=== PATIENT | female | born 1935 | race Caucasian/White ===

== ENCOUNTER 2016-09-12 13:06 | Outpatient (RCR) | payer MEDICARE ==
[~2016-09-12 13:06] MED LIST: ACHD5005 PO; ASP325T PO; ASPI-983 PO; BISO1TAB39 PO; CALC-754 PO; CHOL200035 PO; CLOP75TA PO; DCS100C PO; DOCU100T7 PO; FAMO20TA5 PO; FAMO40TA6 PO; FENO134C PO; FURO40TA4 PO; HYDR-3454 PO; IRON45TA2 PO; ISM30TCR PO; Iron; KCL10CCR PO; METO-352 PO; MTP25TSR PO; MULT1CAP27 PO; PNT40TEC PO; POTA10TA6 PO; POTA20TA15 PO; TRAM50TA2 PO; TRIA1TAB3 PO
[2016-09-12 13:35] LABS: BASOPHILS % (AUTO) 0 % (0-10); EOSINOPHILS # (AUTO) 0.1 10^3/uL (0.0-0.3); EOSINOPHILS % (AUTO) 0 % (0-10); LYMPHOCYTES # (AUTO) 15.5 X 10^3 (1.0-4.0); LYMPHOCYTES % (AUTO) 86 % (12-44); MEAN CORPUSCULAR HEMOGLOBIN 36 PG (25-34); MEAN CORPUSCULAR HGB CONC 32 G/DL (32-36); MEAN CORPUSCULAR VOLUME 112 FL (80-99); MEAN PLATELET VOLUME 11.4 FL (7.4-10.4); MONOCYTES # (AUTO) 0.3 X 10^3 (0.0-1.0); MONOCYTES % (AUTO) 1 % (0-12); NEUTROPHILS # (AUTO) 2.1 X 10^3 (1.8-7.8); NEUTROPHILS % (AUTO) 12 % (42-75); PLATELET COUNT 136 10^3/uL (130-400); RED BLOOD COUNT 3.35 10^6/uL (4.35-5.85); RED CELL DISTRIBUTION WIDTH 14.7 % (10.0-14.5)
[2016-09-12 14:14] LABS: ALANINE AMINOTRANSFERASE 31 U/L (0-55); ANION GAP 6 MMOL/L (5-14); ASPARTATE AMINO TRANSFERASE 27 U/L (5-34); BILIRUBIN,TOTAL 0.9 MG/DL (0.1-1.0); BLOOD UREA NITROGEN 20 MG/DL (7-18); BUN/CREATININE RATIO 24; CALCIUM 9.1 MG/DL (8.5-10.1); CARBON DIOXIDE 33 MMOL/L (21-32); CHLORIDE 104 MMOL/L (98-107); CREATININE SERUM 0.84 MG/DL (0.60-1.30); GFR ESTIMATED > 60; GLUCOSE 86 MG/DL (70-105); POTASSIUM 4.3 MMOL/L (3.6-5.0); SODIUM 143 MMOL/L (135-145)
[2016-09-12 14:35] LABS: THYROID STIMULATING HORMONE 1.49 UIU/ML (0.35-4.94)
[2016-09-12 16:06] LABS: %SAT TOTAL IRON BINDING CAPIC 51 % (15-50); TIBC 287 ug/dL (280-380)
[2016-09-13 07:53] LABS: FERRITIN 326 ng/mL (15-150); UIBC 142 ug/dL (55-450)
[2016-10-10] MEDS ORDERED: METO-274 PO (09:13)
[2016-11-28] MEDS ORDERED: ASPI-983 PO (07:54)
[2016-11-28] MEDS ORDERED: D50KC PO (07:54)
[2016-11-28] MEDS ORDERED: PANT40TA2 PO (07:54)
[2016-11-28] MEDS ORDERED: ACET-77 PO (07:54)
[2016-11-28] MEDS ORDERED: METO-274 PO (07:54)
[2016-11-28] MEDS ORDERED: TRAM50TA2 PO (07:54)
== END 2016-12-11 | disposition home or self-care (01) ==
LOC: ONC 13:06
PROVIDERS: ATTEND Internal Medicine Hematology & Oncology
DX: C91.10 Chronic lymphocytic leukemia of B-cell type not having achieved remission (principal); D50.9 Iron deficiency anemia, unspecified; I25.10 Atherosclerotic heart disease of native coronary artery without angina pectoris; K21.9 Gastro-esophageal reflux disease without esophagitis; Z79.899 Other long term (current) drug therapy; Z95.1 Presence of aortocoronary bypass graft
CPT/HCPCS: 36415; 80053; 82728; 83540; 84443; 85025; 99213

== ENCOUNTER 2016-11-28 07:00 | Day surgery (SDC) | payer MEDICARE ==
[2016-11-28] VITALS (11 sets, daily range): BP systolic 110–147; BP diastolic 48–74
[~2016-11-28] VITALS: Ht 162.6 cm; Wt 104.3 kg
[~2016-11-28 07:00] MED LIST changes: +METO-274 PO
[2016-11-28] MEDS ORDERED: LIDOCAINE 1% INJ 20 ML (XYLOCAINE) VIAL ONE (07:02)
[2016-11-28] MEDS ORDERED: NS IV 1000 ML 1,000 ML ONE (07:02)
[2016-11-28] MEDS ORDERED: HEParin (CATH LAB) 2,000 ML IV ONE (07:02)
[2016-11-28 07:37] LABS: BILIRUBIN,URINE NEGATIVE (NEGATIVE); KETONES,URINE NEGATIVE (NEGATIVE); LEUKOCYTE ESTERASE ,URINE 3+ (NEGATIVE); NITRITE,URINE NEGATIVE (NEGATIVE); PH,URINE 6 (5-9); PROTEIN,URINE 2+ (NEGATIVE); UROBILINOGEN,URINE NORMAL (NORMAL)
[2016-11-28 07:37] LABS: MEAN PLATELET VOLUME 11.8 FL (7.4-10.4); RED BLOOD COUNT 3.47 10^6/uL (4.35-5.85); RED CELL DISTRIBUTION WIDTH 14.3 % (10.0-14.5); WHITE BLOOD COUNT 19.8 10^3/uL (4.3-11.0)
[2016-11-28] MEDS ORDERED: NS IV 1000 ML 1,000 ML IV SCH ×2 (07:45→08:53)
[2016-11-28 07:47] LABS: WBC,URINE 50-100 /HPF
[2016-11-28 07:52] LABS: PROTHROMBIN TIME PATIENT 12.5 SEC (12.2-14.7)
[2016-11-28] MEDS ORDERED: PANT40TA2 PO (07:54)
[2016-11-28] MEDS ORDERED: D50KC PO (07:54)
[2016-11-28] MEDS ORDERED: METO-274 PO (07:54)
[2016-11-28] MEDS ORDERED: TRAM50TA2 PO (07:54)
[2016-11-28] MEDS ORDERED: ASPI-983 PO (07:54)
[2016-11-28] MEDS ORDERED: ACET-77 PO (07:54)
[2016-11-28 08:02] LABS: ALBUMIN 4.3 G/DL (3.2-4.5); POTASSIUM 4.3 MMOL/L (3.6-5.0); TOTAL PROTEIN 6.3 G/DL (6.4-8.2)
[2016-11-28] MEDS ORDERED: fentaNYL INJECTION 100 MCG/2 ML AMP ONE (08:04)
[2016-11-28] MEDS ORDERED: MIDAZOLAM 5 MG/5 ML (VERSED) VIAL ONE (08:04)
--- NOTE | 2016-11-28 08:16 | Diagnostic Imaging Report ---
Portable upright radiograph of the chest. INDICATION: Periodic catheter evaluation. FINDINGS: The lungs are clear. The heart size is at the upper limits of normal. No effusion or pneumothorax. The mediastinum and eduar appear unremarkable. Sternotomy wires are seen. IMPRESSION: No acute process. Dictated by: Dictated on workstation # [id number]
--- NOTE | 2016-11-28 08:38 | Cardiac Procedure Note-CS/ASA ---
Pre-Procedure Note Pre-Op Procedure Note H&P Reviewed The H&P was reviewed, patient examined and no changes noted. Date H&P Reviewed: Nov 28, 2016 Time H&P Reviewed: 08:38 Conscious Sedation Pre-Proced Time Reviewed: 08:38 ASA Class: 3 Airway Mallampati Classification: ([place] appropriate class) I. II. III, IV Lungs Heart ASA score ASA 1: a normal healthy patient ASA 2: a patient with a mild systemic disease (mid diabetes, controlled hypertension, obesity x ASA 3: a patient with a severe systemic disease that limits activity (angina , COPD, prior Myocardial infarction) ASA 4: a patient with an incapacitating disease that is a constant threat to life (CHF, renal failure) ASA 5: a moribund patient not expected to survive 24 hrs. (ruptured aneurysm) ASA 6: a declared brain patient whose organs are being harvested. For emergent operations, add the letter E after the classification Grade 3 Sedation Plan: Analgesia, Amnesia, Plan communicated to team members, Discussed options with patient/fam, Discussed risks with patient/fam Note The patient is an appropriate candidate to undergo the planned procedure, sedation, and anesthesia. The patient immediately re-assessed prior to indication. ELISABETH ARAYA MD Nov 28, 2016 08:38
--- NOTE | 2016-11-28 08:55 | Discharge Inst-Post CATH ---
Discharge Inst-CATH Post Cardiac Cath D/C Inst Follow Up/Plan Appointment with Dr Pappas's office in 2- 4 weeks CARDIAC CATH DISCHARGE INSTRUCTIONS *Hold Metformin for 48 hours post heart cath. ACTIVITY * Go Home directly and rest. * Limit activity of the leg (or wrist if it was used) for 7 days including aerobics, swimming, jogging, bicycling, etc. * Restrict stair-climbing for 7 days if possible, if not, climb up with your non -cath leg, then bring together on the same step. * Avoid lifting, pushing, pulling or excessive movement of the affected extremity for 7 days. * Customary sexual activity may be resumed after 2 days-use caution not to use a position that strains or causes pain to the affected extremity. * No driving for 24 hours. * NO SMOKING. * Avoid straining for bowel movements for 7 days. * Gentle walking on level ground is allowed. * Returning to work will depend on the type of procedure and the results. Your doctor will discuss this with you. CALL YOUR DOCTOR FOR ANY OF THE FOLLOWING: *If bleeding from the puncture site occurs- Apply gentle pressure to site with clean cloth and call your doctor or EMS. * If a knot or lump forms under the skin, increases in size, or causes pain. * If bruising appears to be worsening or moving further down your leg instead of disappearing. * Temperature above 101 F. CARE OF YOUR GROIN INCISION; * Bruising or purple discoloration of the skin near the puncture site is common. * You may shower only, no bathtub bathing for 5 days. Be careful to avoid slipping as your leg may feel stiff. * If a closure device was used on your femoral artery, please see the attached guide regarding care of the device and your leg. * REMOVE the dressing from your groin the next day after your procedure in the shower. CARE OF YOUR WRIST INCISION; * Bruising or purple discoloration of the skin near the puncture site is common. * You may shower. * DO NOT submerge wrist. * Remove dressing in 24 hours. ELISABETH PAPPAS MD Nov 28, 2016 08:55
[2016-11-28] MEDS ORDERED: PATIENT MAY USE OWN MEDS, ALL PO SCH (09:00)
--- NOTE | 2016-11-28 12:43 | DISCHARGE SUMMARY ---
PROCEDURE PHYSICIAN: ELISABETH ARAYA DATE OF PROCEDURE: 11/28/2016 REFERRING PHYSICIAN: Dr. Conway BRIEF HISTORY: Mrs. Inman is an 80-year-old lady with history of coronary artery disease, aortic valve stenosis, hypertension. The patient had an abnormal stress test with large ischemia involving the anterior wall. She was scheduled for left heart catheterization, possible PTCA. PROCEDURE NOTE: After explaining the procedure to the patient, all pros and cons were explained. All questions were explained. The patient signed consent, then she was placed on the cardiac catheterization laboratory. The right groin was prepped in a sterile fashion. Local anesthesia applied to right groin. 6-[place] sheath was placed in the right femoral artery. A combination of right and left Rajwinder catheter were used to access the right and left coronary system. Multiple views were obtained. Rajwinder right catheter was used to access the vein graft. Vein graft angiogram was done. Then an IM catheter was used to evaluate the REYES. REYES angiogram was done. Pigtail catheter advanced through the stenotic aortic valve with difficulties. No left ventriculogram was done. Pressure was measured. Pullback LV to aorta was done. At the end of the procedure, sheath was left in place to be removed manually with manual pressure. FINDINGS: HEMODYNAMICS: LV pressure: 150/5, end-diastolic pressure of 5, aortic pressure 129/62, mean of 39, 21 mmHg gradient across the aortic valve with peak to peak pressure. ANATOMY: 1. Left main coronary artery is bifurcating to left anterior descending and left circumflex artery with no obstructive disease. 2. Left anterior descending artery is moderate in size, known to have Xience 2.25 x 18 mm stent that is patent. Small vessel disease distally. The REYES to the LAD was noted to be atretic but patent with sluggish flow. 3. Left circumflex artery: Left circumflex artery is moderate in size artery with mild disease, nonobstructive disease. 4. Right coronary artery: The right coronary artery is subtotally occluded at the midportion. The vein graft to the right coronary artery is patent. It has a stent Xience stent 2.25 x 18 mm that is patent with small vessel disease distally. 5. Vein graft angiogram: The vein graft to the right coronary artery as described above has a stent distally that is patent with small vessel disease distally. 6. REYES angiogram: The REYES is atretic, has sluggish flow is still patent to the LAD filling the LAD with competitive flow through the [place] artery. 7. No left ventriculogram was done with 21 mm of gradient across the aortic valve. CONCLUSION: 1. Patent stent in the mid LAD known to be Xience stent 2.25 x 18 mm with good flow distally. The REYES to the LAD is patent, atretic with sluggish flow, small vessel disease distally. 2. Patent vein graft to the right coronary artery, known to have a Xience 2.25 x 18 mm stent in the vein graft, small vessel disease distally. The [place] right coronary artery has subtotal occlusion proximally corrected with a bypass graft. 3. Mild disease in the circumflex artery. 4. Normal left ventricular end diastolic pressure. 5. Moderate aortic valve stenosis with peak to peak gradient of 21 mmHg during pullback. DISCUSSION AND RECOMMENDATION: Mrs. Inman had an abnormal stress test, probably due to small vessel disease in addition to extracardiac attenuation. Medical therapy is recommended. No intervention is needed. FINAL DIAGNOSIS: 1. Chest pain, nonspecific etiology. 2. Coronary artery disease. 3. Moderate aortic stenosis. 4. Hypertension. 5. Hyperlipidemia. 6. History of chronic lymphocytic leukemia. Job ID: [id number] Dictated Date: 11/28/2016 09:03:28 Day Care Provider Date: 11/28/2016 12:40:10/[email or web address]
== END 2016-11-28 14:00 | disposition home or self-care (01) ==
LOC: CATH 07:00 → SURG 09:34 → CATH 14:00
PROVIDERS: ATTEND Internal Medicine Cardiovascular Disease
DX: R94.39 Abnormal result of other cardiovascular function study (principal); I25.10 Atherosclerotic heart disease of native coronary artery without angina pectoris; I10 Essential (primary) hypertension; R07.89 Other chest pain; I35.0 Nonrheumatic aortic (valve) stenosis; E78.5 Hyperlipidemia, unspecified; C91.10 Chronic lymphocytic leukemia of B-cell type not having achieved remission; E66.9 Obesity, unspecified; Z68.39 Body mass index [BMI] 39.0-39.9, adult; Z95.1 Presence of aortocoronary bypass graft; Z95.5 Presence of coronary angioplasty implant and graft; Z79.899 Other long term (current) drug therapy
CPT/HCPCS: 36415; 71010; 80053; 80061; 81000; 85027; 85610; 85730; 87077; 87081; 87088; 87186; 93005; 93459

== ENCOUNTER 2017-01-13 13:47 | Emergency (ER) | payer MEDICARE ==
[~2017-01-13] VITALS: Ht 165.1 cm; Wt 104.3 kg
[~2017-01-13 13:47] MED LIST changes: +ACET-77 PO; +D50KC PO; +PANT40TA2 PO
--- OUTSIDE RECORDS SUMMARY | 2017-01-13 14:00 | XMS REPORT | Continuity of Care Document ---
Author Author Via [facility] Organization Via [facility] Address Unknown Phone Unavailable Allergies Active Description Code Type Severity Reaction Onset Reported/Identified Relationship to Patient Clinical Status Yes STATIN MEDICINE, NIACIN STATIN MEDICINE, NIACIN Unknown N/A 03/31/2012 Yes Fish Containing Products [id number] Drug Allergy Unknown NAUSEA 11/05/2014 Yes Fish Containing Products [id number] Drug Allergy Mild NAUSEA 11/02/2015 Yes niacin [id number] Drug Allergy Unknown N/A 11/02/2015 Yes Hhpyzzr-Ggk-Hau Reductase Inhibitor [id number] Drug Allergy Unknown N/A 11/02/2015 Medications Problems Date Dx Coded Attending Type Code Diagnosis Diagnosed By 01/24/2011 Ot 204.10 CHRONIC LYMPHOID LEUKEMIA, W/O MENTION A 01/24/2011 Ot 285.9 ANEMIA NOS 06/27/2011 Ot 204.10 CHRONIC LYMPHOID LEUKEMIA, W/O MENTION A 06/27/2011 Ot 285.9 ANEMIA NOS 06/27/2011 Ot 414.00 CORON ATHEROSCLER NOS TYPE VESSEL, NATIV 06/27/2011 Ot 530.81 ESOPHAGEAL REFLUX 06/27/2011 Ot V45.81 AORTOCORONARY BYPASS 06/27/2011 Ot V45.82 PERCUTANEOUS TRANSLUM CORON ANGIOPLASTY 06/27/2011 Ot V58.63 LONG-TERM(CURRENT)USE OF ANTIPLATELET/AN 06/27/2011 Ot V58.66 LONG-TERM (CURRENT) USE OF ASPIRIN 06/27/2011 Ot V58.69 OTH MED,LT,CURRENT USE 09/26/2011 Ot 204.10 CHRONIC LYMPHOID LEUKEMIA, W/O MENTION A 09/26/2011 Ot 285.9 ANEMIA NOS 09/26/2011 Ot 414.00 CORON ATHEROSCLER NOS TYPE VESSEL, NATIV 09/26/2011 Ot 530.81 ESOPHAGEAL REFLUX 09/26/2011 Ot V45.81 AORTOCORONARY BYPASS 09/26/2011 Ot V45.82 PERCUTANEOUS TRANSLUM CORON ANGIOPLASTY 09/26/2011 Ot V58.63 LONG-TERM(CURRENT)USE OF ANTIPLATELET/AN 09/26/2011 Ot V58.66 LONG-TERM (CURRENT) USE OF ASPIRIN 09/26/2011 Ot V58.69 OTH MED,LT,CURRENT USE 12/30/2011 Ot 204.10 CHRONIC LYMPHOID LEUKEMIA, W/O MENTION A 12/30/2011 Ot 285.9 ANEMIA NOS 12/30/2011 Ot 414.00 CORON ATHEROSCLER NOS TYPE VESSEL, NATIV 12/30/2011 Ot 530.81 ESOPHAGEAL REFLUX 12/30/2011 Ot V45.81 AORTOCORONARY BYPASS 12/30/2011 Ot V45.82 PERCUTANEOUS TRANSLUM CORON ANGIOPLASTY 12/30/2011 Ot V58.63 LONG-TERM(CURRENT)USE OF ANTIPLATELET/AN 12/30/2011 Ot V58.66 LONG-TERM (CURRENT) USE OF ASPIRIN 12/30/2011 Ot V58.69 OTH MED,LT,CURRENT USE 03/26/2012 Ot 204.10 CHRONIC LYMPHOID LEUKEMIA, W/O MENTION A 06/15/2012 Ot 401.9 HYPERTENSION NOS 06/15/2012 Ot 780.79 OTH MALAISE FATIGUE 06/15/2012 Ot 791.9 ABN URINE FINDINGS NEC 06/30/2012 Ot 204.10 CHRONIC LYMPHOID LEUKEMIA, W/O MENTION A 06/30/2012 Ot 414.00 CORON ATHEROSCLER NOS TYPE VESSEL, NATIV 06/30/2012 Ot 530.81 ESOPHAGEAL REFLUX 06/30/2012 Ot V43.64 HIP JOINT REPLACEMENT STATUS 06/30/2012 Ot V43.65 KNEE JOINT REPLACEMENT STATUS 06/30/2012 Ot V45.81 AORTOCORONARY BYPASS 06/30/2012 Ot V58.63 LONG-TERM(CURRENT)USE OF ANTIPLATELET/AN 06/30/2012 Ot V58.69 OTH MED,LT,CURRENT USE 11/12/2012 Ot 204.10 CHRONIC LYMPHOID LEUKEMIA, W/O MENTION A 11/12/2012 Ot 280.9 IRON DEFIC ANEMIA NOS 11/12/2012 Ot 414.00 CORON ATHEROSCLER NOS TYPE VESSEL, NATIV 11/12/2012 Ot 530.81 ESOPHAGEAL REFLUX 11/12/2012 Ot 564.00 UNSPEC CONSTIPATION 11/12/2012 Ot 719.46 JOINT PAIN-L/LEG 11/12/2012 Ot V43.64 HIP JOINT REPLACEMENT STATUS 11/12/2012 Ot V43.65 KNEE JOINT REPLACEMENT STATUS 11/12/2012 Ot V45.81 AORTOCORONARY BYPASS 11/12/2012 Ot V58.69 OTH MED,LT,CURRENT USE 12/08/2012 Ot 414.01 CORONARY ATHEROSCLEROSIS OF [place] CORON 12/08/2012 Ot 785.1 PALPITATIONS 03/09/2013 Ot 204.10 CHRONIC LYMPHOID LEUKEMIA, W/O MENTION A 03/09/2013 Ot 280.9 IRON DEFIC ANEMIA NOS 03/09/2013 Ot 414.00 CORON ATHEROSCLER NOS TYPE VESSEL, NATIV 03/09/2013 Ot 530.81 ESOPHAGEAL REFLUX 03/09/2013 Ot V45.81 AORTOCORONARY BYPASS 03/09/2013 Ot V58.69 OTH MED,LT,CURRENT USE 07/06/2013 WILL MEHTA MD Ot 204.10 CHRONIC LYMPHOID LEUKEMIA, W/O MENTION A 07/06/2013 WILL MEHTA MD Ot 280.9 IRON DEFIC ANEMIA NOS 07/06/2013 WILL MEHTA MD Ot 414.00 CORON ATHEROSCLER NOS TYPE VESSEL, NATIV 07/06/2013 WILL MEHTA MD Ot 530.81 ESOPHAGEAL REFLUX 07/06/2013 WILL MEHTA MD Ot V45.81 AORTOCORONARY BYPASS 07/06/2013 WILL MEHTA MD, Ot V58.69 OTH MED,LT,CURRENT USE 09/27/2013 RUFUS LAU, AWA Delgado Ot 813.07 FX UP RADIUS NEC/NOS-CL 09/27/2013 AWA HOOPER MD Ot 959.2 SHLDR/UPPER ARM INJ NOS 09/27/2013 AWA HOOPER MD Ot E000.8 OTHER EXTERNAL CAUSE STATUS 09/27/2013 RUFUS LAU, AWA Delgado Ot E849.[address]/HIGHWAY 09/27/2013 AWA HOOPER MD Ot E880.1 FALL ON OR FROM SIDEWALK CURB 12/08/2013 WILL MEHTA MD Ot 204.10 CHRONIC LYMPHOID LEUKEMIA, W/O MENTION A 12/08/2013 WILL MEHTA MD Ot 280.9 IRON DEFIC ANEMIA NOS 12/08/2013 WILL MEHTA MD Ot 414.00 CORON ATHEROSCLER NOS TYPE VESSEL, NATIV 12/08/2013 WILL MEHTA MD Ot 530.81 ESOPHAGEAL REFLUX 12/08/2013 WILL MEHTA MD Ot V45.81 AORTOCORONARY BYPASS 12/08/2013 WILL MEHTA MD Ot V58.69 OTH MED,LT,CURRENT USE 01/08/2014 TINO KAPOOR DO Ot 574.10 CHOLELITH W CHOLECYS NEC 03/09/2014 WILL MEHTA MD Ot 204.10 CHRONIC LYMPHOID LEUKEMIA, W/O MENTION A 03/09/2014 WILL MEHTA MD Ot 280.9 IRON DEFIC ANEMIA NOS 03/09/2014 WILL MEHTA MD Ot 414.00 CORON ATHEROSCLER NOS TYPE VESSEL, NATIV 03/09/2014 WILL MEHTA MD Ot 530.81 ESOPHAGEAL REFLUX 03/09/2014 WILL MEHTA MD Ot V45.81 AORTOCORONARY BYPASS 03/09/2014 WILL MEHTA MD Ot V58.69 OTH MED,LT,CURRENT USE 07/12/2014 WILL MEHTA MD Ot 204.10 CHRONIC LYMPHOID LEUKEMIA, W/O MENTION A 07/12/2014 WILL MEHTA MD Ot 280.9 IRON DEFIC ANEMIA NOS 07/12/2014 WILL MEHTA MD Ot 414.00 CORON ATHEROSCLER NOS TYPE VESSEL, NATIV 07/12/2014 WILL MEHTA MD Ot 530.81 ESOPHAGEAL REFLUX 07/12/2014 WILL MEHTA MD Ot V45.81 AORTOCORONARY BYPASS 07/12/2014 WILL MEHTA MD Ot V58.69 OTH MED,LT,CURRENT USE 10/07/2014 JANINE LAU, WILL Ot 204.10 10/07/2014 JANINE LAU, WILL Ot 280.9 10/07/2014 JANINE LAU, WILL Ot 414.00 10/07/2014 JANINE LAU, WILL Ot 530.81 10/07/2014 JANINE LAU, WILL Ot V45.81 10/07/2014 JANINE LAU, WILL Ot V58.69 11/01/2014 JANINE LAU, WILL Ot 204.10 11/01/2014 JANINE LAU, WILL Ot 280.9 11/01/2014 JANINE LAU, WILL Ot 414.00 11/01/2014 JANINE LAU, WILL Ot 530.81 11/01/2014 WILL MEHTA MD Ot V45.81 11/01/2014 JANINE LAU, WILL Ot V58.69 11/05/2014 Ot 204.10 11/05/2014 Ot 285.9 11/05/2014 Ot 414.00 11/05/2014 Ot 530.81 11/05/2014 Ot V45.81 11/05/2014 Ot V45.82 11/05/2014 Ot V58.63 11/05/2014 Ot V58.66 11/05/2014 Ot V58.69 11/05/2014 Ot 414.01 11/05/2014 Ot 785.1 11/06/2014 UMAIR LAU, PAIGE R Ot 208.90 11/06/2014 UMAIR LAU, PAIGE R Ot 490 11/06/2014 UMAIR LAU, PAIGE R Ot 208.90 UNSPECIFIED LEUKEMIA, W/O MENTION OF HAV 11/06/2014 UMAIR LAU, PAIGE R Ot 490 BRONCHITIS NOS 11/29/2014 JANINE LAU, WILL Ot 204.10 CHRONIC LYMPHOID LEUKEMIA, W/O MENTION A 11/29/2014 JANINE LAU, WILL Ot 280.9 IRON DEFIC ANEMIA NOS 11/29/2014 JANINE LAU, WILL Ot 414.00 CORON ATHEROSCLER NOS TYPE VESSEL, NATIV 11/29/2014 JANINE LAU, WILL Ot 530.81 ESOPHAGEAL REFLUX 11/29/2014 JANINE LAU, WILL Ot V45.81 AORTOCORONARY BYPASS 11/29/2014 JANINE LAU, WILL Ot V58.69 OT MED,LT,CURRENT USE 12/14/2014 JANINE LAU, WILL Ot 204.10 12/14/2014 JANINE LAU, WILL Ot 280.9 12/14/2014 JANINE LAU, WILL Ot 414.00 12/14/2014 JANINE LAU, WILL Ot 530.81 12/14/2014 JANINE LAU, WILL Ot V45.81 12/14/2014 JANINE LAU, WILL Ot V58.69 12/21/2014 JANINE LAU, WILL Ot 204.10 12/21/2014 JANINE LAU, WILL Ot 280.9 12/21/2014 JANINE LAU, WILL Ot 414.00 12/21/2014 JANINE LAU, WILL Ot 530.81 12/21/2014 JANINE LAU, WILL Ot V45.81 12/21/2014 JANINE LAU, WILL Ot V58.69 12/22/2014 JANINE LAU, WILL Ot 204.10 12/22/2014 JANINE LAU, WILL Ot 280.9 12/22/2014 JANINE LAU, WILL Ot 414.00 12/22/2014 JANINE LAU, WILL Ot 530.81 12/22/2014 JANINE LAU, WILL Ot V45.81 12/22/2014 JANINE LAU, WILL Ot V58.69 01/20/2015 JANINE LAU, WILL Ot 204.10 01/20/2015 JANINE LAU, WILL Ot 280.9 01/20/2015 JANINE LAU, WILL Ot 414.00 01/20/2015 JANINE LAU, WILL Ot 530.81 01/20/2015 JANINE LAU, WILL Ot V45.81 01/20/2015 JANINE LUA, WILL Ot V58.69 01/20/2015 JANINE LAU, WILL Ot 204.10 01/20/2015 JANINE LAU, WILL Ot 280.9 01/20/2015 JANINE LAU, WILL Ot 414.00 01/20/2015 JANINE LAU, WILL Ot 530.81 01/20/2015 JANINE LAU, WILL Ot V45.81 01/20/2015 JANINE LAU, WILL Ot V58.69 03/21/2015 JANINE LAU, WILL Ot 204.10 CHRONIC LYMPHOID LEUKEMIA, W/O MENTION A 03/21/2015 JANINE LAU, WILL Ot 280.9 IRON DEFIC ANEMIA NOS 03/21/2015 JANINE LAU, WILL Ot 414.00 CORON ATHEROSCLER NOS TYPE VESSEL, NATIV 03/21/2015 JANINE LAU, WILL Ot 530.81 ESOPHAGEAL REFLUX 03/21/2015 JANINE LAU, WILL Ot V45.81 AORTOCORONARY BYPASS 03/21/2015 JANINE LAU, WILL Ot V58.69 OTH MED,LT,CURRENT USE 04/27/2015 JANINE LAU, WILL Ot 204.10 04/27/2015 JANINE LAU, WILL Ot 280.9 04/27/2015 JANINE LAU, PRITCHARD-JOSEFA Ot 414.00 04/27/2015 JANINE LAU, PRITCHARD-JOSEFA Ot 530.81 04/27/2015 JANINE LAU, PRITCHARD-JOSEFA Ot V45.81 04/27/2015 JANINE LAU, PRITCHARD-JOSEFA Ot V58.69 04/27/2015 JANINE LAU, PRITCHARD-JOSEFA Ot 204.10 04/27/2015 JANINE LAU, PRITCHARD-JOSEFA Ot 280.9 04/27/2015 JANINE LAU, PRITCHARD-JOSEFA Ot 414.00 04/27/2015 JANINE LAU, PRITCHARD-JOSEFA Ot 530.81 04/27/2015 JANINE LAU, PRITCHARD-JOSEFA Ot V45.81 04/27/2015 JANINE LAU, PRITCHARD-JOSEFA Ot V58.69 05/03/2015 JANINE LAU, PRITCHARD-JOSEFA Ot 204.10 05/03/2015 JANINE LAU, PRITCHARD-JOSEFA Ot 280.9 05/03/2015 JANINE LAU, PRITCHARD-JOSEFA Ot 414.00 05/03/2015 JANINE LAU, PRITCHARD-JOSEFA Ot 530.81 05/03/2015 JANINE LAU, PRITCHARD-JOSEFA Ot V45.81 05/03/2015 JANINE LAU, PRITCHARD-JOSEFA Ot V58.69 05/04/2015 JANINE LAU, PRITCHARD-JOSEFA Ot 204.10 05/04/2015 JANINE LAU, PRITCHARD-JOSEFA Ot 280.9 05/04/2015 JANINE LAU, PRITCHARD-JOSEFA Ot 414.00 05/04/2015 JANINE LAU, PRITCHARD-JOSEFA Ot 530.81 05/04/2015 JANINE LAU, PRITCHARD-JOSEFA Ot V45.81 05/04/2015 JANINE LAU, PRITCHARD-JOSEFA Ot V58.69 05/12/2015 JANINE LAU, PRITCHARD-JOSEFA Ot 204.10 05/12/2015 JANINE LAU, PRITCHARD-JOSEFA Ot 280.9 05/12/2015 JANINE LAU, PRITCHARD-JOSEFA Ot 414.00 05/12/2015 JANINE LAU, PRITCHARD-JOSEFA Ot 530.81 05/12/2015 JANINE LAU, PRITCHARD-JOSEFA Ot V45.81 05/12/2015 JANINE LAU, PRITCHARD-JOSEFA Ot V58.69 05/16/2015 JANINE LAU, PRITCHARD-JOSEFA Ot 204.10 05/16/2015 JANINE LAU, PRITCHARD-JOSEFA Ot 280.9 05/16/2015 JANINE LAU, PRITCHARD-JOSEFA Ot 414.00 05/16/2015 JANINE LAU, FRANCHESKA-JOSEFA Ot 530.81 05/16/2015 JANINE LAU, FRANCHESKA-JOSEFA Ot V45.81 05/16/2015 JANINE LAU, FRANCHESKA-JOSEFA Ot V58.69 06/03/2015 DOAN, HILAH S BID MANAGER Ot 204.10 06/03/2015 DOAN, HILAH S BID MANAGER Ot 285.9 06/03/2015 DOAN, HILAH S BID MANAGER Ot 414.00 06/03/2015 DOAN, HILAH S BID MANAGER Ot 530.81 06/03/2015 DOAN, HILAH S BID MANAGER Ot V45.81 06/03/2015 DOAN, HILAH S BID MANAGER Ot V58.69 06/10/2015 DOAN, HILAH S BID MANAGER Ot 204.10 06/10/2015 DOAN, HILAH S BID MANAGER Ot 285.9 06/10/2015 DOAN, HILAH S BID MANAGER Ot 414.00 06/10/2015 DOAN, HILAH S BID MANAGER Ot 530.81 06/10/2015 DOAN, HILAH S BID MANAGER Ot V45.81 06/10/2015 DOAN, HILAH S BID MANAGER Ot V58.69 06/24/2015 JANINE LAU, WILL Ot 204.10 06/24/2015 JANINE LAU, FRANCHESKA-JOSEFA Ot 280.9 06/24/2015 JANINE LAU, PRITCHARD-JOSEFA Ot 414.00 06/24/2015 JANINE LAU, FRANCHESKA-JOSEFA Ot 530.81 06/24/2015 JANINE LAU, FRANCHESKA-JOSEFA Ot V45.81 06/24/2015 JANINE LAU, FRANCHESKA-JOSEFA Ot V58.69 07/18/2015 JANINE LAU, FRANCHESKA-JOSEFA Ot 204.10 07/18/2015 JANINE LAU, FRANCHESKA-JOSEFA Ot 280.9 07/18/2015 JANINE LAU, FRANCHESKA-JOSEFA Ot 414.00 07/18/2015 JANINE LAU, FRANCHES[place]-JOSEFA Ot 530.81 07/18/2015 JANINE LAU, FRANCHESKA-JOSEFA Ot V45.81 07/18/2015 JANINE LAU, FRANCHESKA-JOSEFA Ot V58.69 08/01/2015 JANINE LAU, WILL Ot 204.10 CHRONIC LYMPHOID LEUKEMIA, W/O MENTION A 08/01/2015 JANINE LAU, WILL Ot 280.9 IRON DEFIC ANEMIA NOS 08/01/2015 JANINE LAU, WILL Ot 414.00 CORON ATHEROSCLER NOS TYPE VESSEL, NATIV 08/01/2015 JANINE LAU, WILL Ot 530.81 ESOPHAGEAL REFLUX 08/01/2015 JANINE LAU, WILL Ot V45.81 AORTOCORONARY BYPASS 08/01/2015 JANINE LAU, WILL Ot V58.69 OTH MED,LT,CURRENT USE 08/04/2015 JANINE LAU, WILL Ot 204.10 08/04/2015 JANINE LAU, WILL Ot 280.9 08/04/2015 JANINE LAU, WILL Ot 414.00 08/04/2015 JANINE LUA, WILL Ot 530.81 08/04/2015 JANINE LAU, WILL Ot V45.81 08/04/2015 JANINE LAU, WILL Ot V58.69 08/16/2015 JANINE LAU, WILL Ot 204.10 08/16/2015 JANINE LAU, WILL Ot 280.9 08/16/2015 JANINE LAU, WILL Ot 414.00 08/16/2015 JANINE LAU, IWLL Ot 530.81 08/16/2015 JANINE LAU, WILL Ot V45.81 08/16/2015 JANINE LAU, WILL Ot V58.69 08/24/2015 JANINE LAU, WILL Ot 204.10 CHRONIC LYMPHOID LEUKEMIA, W/O MENTION A 08/24/2015 JANINE LAU, WILL Ot 280.9 IRON DEFIC ANEMIA NOS 08/24/2015 JANINE LAU, WILL Ot 414.00 CORON ATHEROSCLER NOS TYPE VESSEL, NATIV 08/24/2015 JANINE LAU, WILL Ot 530.81 ESOPHAGEAL REFLUX 08/24/2015 JANINE LAU, WILL Ot 791.9 ABN URINE FINDINGS NEC 08/24/2015 JANINE LAU, WILL Ot V45.81 AORTOCORONARY BYPASS 08/24/2015 JANINE LAU, WILL Ot V58.69 OTH MED,LT,CURRENT USE 08/24/2015 JANINE LAU, WILL Ot 204.10 08/24/2015 JANINE LAU, WILL Ot 280.9 08/24/2015 JANINE LAU, WILL Ot 414.00 08/24/2015 JANINE LAU, WILL Ot 530.81 08/24/2015 JANINE LAU, WILL Ot V45.81 08/24/2015 JANINE LAU, WILL Ot V58.69 09/20/2015 JANINE LAU, WILL Ot 204.10 09/20/2015 JANINE LAU, WILL Ot 280.9 09/20/2015 JANINE LAU, WILL Ot 414.00 09/20/2015 JANINE LAU, WILL Ot 530.81 09/20/2015 JANINE LAU, WILL Ot V45.81 09/20/2015 JANINE LAU, WILL Ot V58.69 10/25/2015 JANINE LAU, TEMOJOSEFA Ot 204.10 10/25/2015 JANINE LAU, TEMOJOSEFA Ot 280.9 10/25/2015 JANINE LAU, WILL Ot 414.00 10/25/2015 JANINE LAU, WILL Ot 530.81 10/25/2015 JANINE LAU, WILL Ot V45.81 10/25/2015 JANINE LAU, WILL Ot V58.69 11/01/2015 MANNY MEIER Ot C91.10 11/01/2015 MANNY MEIER Ot I10 11/01/2015 MANNY MEIER Ot I25.10 11/01/2015 MANNY MEIER Ot I65.23 11/02/2015 Ot 204.10 11/02/2015 Ot 285.9 11/02/2015 Ot 414.00 11/02/2015 Ot 530.81 11/02/2015 Ot V45.81 11/02/2015 Ot V45.82 11/02/2015 Ot V58.63 11/02/2015 Ot V58.66 11/02/2015 Ot V58.69 11/02/2015 Ot 414.01 11/02/2015 Ot 785.1 11/02/2015 MANNY MEIER Ot C91.10 11/02/2015 MANNY MEIER Ot I10 11/02/2015 MANNY MEIER Ot I25.10 11/02/2015 MANNY MEIER Ot I65.23 11/07/2015 ELISABETH ARAYA MD Ot C91.10 CHRONIC LYMPHOCYTIC LEUK OF B-CELL TYPE 11/07/2015 ELISABETH ARAYA MD, Ot D64.9 ANEMIA, UNSPECIFIED 11/07/2015 ELISABETH ARAYA MD, Ot E78.5 HYPERLIPIDEMIA, UNSPECIFIED 11/07/2015 ELISABETH ARAYA MD Ot I10 ESSENTIAL (PRIMARY) HYPERTENSION 11/07/2015 ELISABETH ARAYA MD, Ot I25.10 ATHSCL HEART DISEASE OF [place] CORONARY 11/07/2015 ELISABETH ARAYA MD, Ot 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 11/07/2015 ELISABETH ARAYA MD, Ot I65.29 OCCLUSION AND STENOSIS OF UNSPECIFIED CA 11/07/2015 ELISABETH ARAYA MD, Ot R94.39 ABNORMAL RESULT OF OTHER CARDIOVASCULAR 11/07/2015 ELISABETH ARAYA MD, Ot 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 11/07/2015 ELISABETH ARAYA MD, Ot Z95.1 PRESENCE OF AORTOCORONARY BYPASS GRAFT 11/07/2015 ELISABETH ARAYA MD Ot Z98.61 CORONARY ANGIOPLASTY STATUS 11/10/2015 JANINE LAU, WILL Ot C91.10 11/10/2015 JANINE LAU, WILL Ot D50.9 11/10/2015 JANINE LAU, WILL Ot I25.10 11/10/2015 JANINE LAU, WILL Ot K21.9 11/10/2015 JANINE LAU, WILL Ot Z79.899 11/10/2015 JANINE LAU, WILL Ot Z95.1 11/16/2015 JANINE LAU, WILL Ot C91.10 11/16/2015 JANINE LAU, WILL Ot D50.9 11/16/2015 JANINE LAU, WILL Ot I25.10 11/16/2015 JANINE LAU, WILL Ot K21.9 11/16/2015 JANINE LAU, WILL Ot Z79.899 11/16/2015 WILL MEHTA MD Ot Z95.1 11/24/2015 MANNY MEIER Ot C91.10 11/24/2015 MANNY MEIER Ot I10 11/24/2015 JOAN DAVID, MANNY Rolly Ot I25.10 11/24/2015 KIM-JUS PA, MANNY Rolly Ot I65.23 11/24/2015 KIM-JUS PA, MANNY Rolly Ot C91.10 11/24/2015 KIM-JUS PA, MANNY K Ot I10 11/24/2015 KIM-JUS PA, MANNY K Ot I25.10 11/24/2015 KIM-JUS PA, MANNY K Ot I65.23 11/28/2015 KIM-JUS PA, MANNY K Ot C91.10 11/28/2015 KIM-JUS PA, MANNY K Ot I10 11/28/2015 KIM-JUS PA, MANNY K Ot I25.10 11/28/2015 KIM-JUS PA, MANNY Lofton Ot I65.23 11/29/2015 JULIO-JUS PA, MANNY Lofton Ot C91.10 11/29/2015 KIM-JUS PA, MANNY K Ot I10 11/29/2015 KIM-JUS PA, MANNY Rolly Ot I25.10 11/29/2015 KIM-JUS PA, MANNY Rolly Ot I65.23 12/19/2015 JANINE LAU, WILL Ot C91.10 CHRONIC LYMPHOCYTIC LEUK OF B-CELL TYPE 12/19/2015 WILL MEHTA MD Ot D50.9 IRON DEFICIENCY ANEMIA, UNSPECIFIED 12/19/2015 WILL MEHTA MD Ot I25.10 ATHSCL HEART DISEASE OF [place] CORONARY 12/19/2015 WILL MEHTA MD Ot K21.9 GASTRO-ESOPHAGEAL REFLUX DISEASE WITHOUT 12/19/2015 WILL MEHTA MD Ot Z79.899 OTHER USP (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 THERAPY 12/19/2015 WILL MEHTA MD Ot Z95.1 PRESENCE OF AORTOCORONARY BYPASS GRAFT 02/02/2016 Ot 204.10 02/02/2016 Ot 280.9 02/02/2016 Ot 414.00 02/02/2016 Ot 530.81 02/02/2016 Ot V43.64 02/02/2016 Ot V45.81 02/02/2016 Ot V45.82 02/02/2016 Ot V58.63 02/02/2016 Ot V58.66 02/02/2016 Ot V58.69 02/02/2016 Ot 729.82 02/02/2016 Ot 204.10 02/02/2016 Ot 204.10 02/02/2016 Ot 285.9 02/02/2016 Ot 414.00 02/02/2016 Ot 530.81 02/02/2016 Ot V45.81 02/02/2016 Ot V45.82 02/02/2016 Ot V58.63 02/02/2016 Ot V58.66 02/02/2016 Ot V58.69 02/02/2016 Ot 396.3 02/02/2016 Ot 397.0 02/02/2016 Ot 401.9 02/02/2016 Ot 414.00 02/02/2016 Ot 786.50 02/02/2016 Ot 401.9 02/02/2016 Ot 414.00 02/02/2016 Ot 786.50 02/02/2016 Ot 272.4 02/02/2016 Ot 401.9 02/02/2016 Ot 414.01 02/02/2016 Ot 285.9 02/02/2016 Ot 285.9 02/02/2016 Ot 285.9 02/02/2016 Ot 204.10 02/02/2016 Ot 611.72 02/02/2016 Ot 272.4 02/02/2016 Ot 414.00 02/02/2016 Ot 272.4 02/02/2016 Ot 401.9 02/02/2016 Ot 414.01 02/02/2016 Ot 414.01 02/02/2016 Ot 785.1 02/02/2016 UMAIR LAU, PAIGE R Ot 724.2 02/02/2016 UMAIR LAU, PAIGE R Ot 737.30 02/02/2016 UMAIR LAU, PAIGE R Ot 738.4 02/02/2016 UMAIR LAU, PAIGE R Ot 272.4 02/02/2016 UMAIR LAU, PAIGE R Ot 401.9 02/02/2016 UMAIR LAU, PAIGE R Ot 729.82 02/02/2016 UMAIR LAU, PAIGE R Ot 780.79 02/02/2016 UMAIR LAU, PAIGE R Ot V76.12 02/02/2016 UMAIR LAU, PAIGE R Ot 574.20 02/02/2016 TINO KAPOOR DO Ot 414.00 02/02/2016 [place] DO, TINO D Ot 574.20 02/02/2016 [place] DO, TINO D Ot V72.63 02/02/2016 [place] DO, TINO D Ot V74.8 02/02/2016 UMAIR LAU, PAIGE R Ot 729.5 02/02/2016 DOANKRISSY Conley BID MANAGER Ot 204.10 02/02/2016 DOANKRISSY Conley BID MANAGER Ot 285.9 02/02/2016 DOANKRISSY S BID MANAGER Ot 414.00 02/02/2016 DOANKRISSY S BID MANAGER Ot 530.81 02/02/2016 DOANKRISSY S BID MANAGER Ot V45.81 02/02/2016 DOANKRISSY S BID MANAGER Ot V58.69 02/02/2016 JOAN PA, MANNY K Ot C91.10 02/02/2016 JOAN PA, MANNY K Ot I10 02/02/2016 JOAN PA, MANNY K Ot I25.10 02/02/2016 JULIO-JUS PA, MANNY K Ot I65.23 02/02/2016 JULIO-JUS PA, MANNY K Ot C91.10 02/02/2016 JULIO-JUS PA, MANNY K Ot I10 02/02/2016 JOAN PA, MANNY K Ot I25.10 02/02/2016 JULIO-JUS PA, MANNY K Ot I65.23 02/02/2016 JOAN PA, MANNY K Ot C91.10 02/02/2016 JOAN PA, MANNY K Ot I10 02/02/2016 KIM-JUS PA, MANNY K Ot I25.10 02/02/2016 JULIO-JUS PA, MANNY K Ot I65.23 02/02/2016 JANINE LAU, WILL Ot C91.10 02/02/2016 JANINE LAU, WILL Ot D50.9 02/02/2016 JANINE LAU, WILL Ot I25.10 02/02/2016 JANINE LAU, WILL Ot K21.9 02/02/2016 JANINE LAU, WILL Ot Z79.899 02/02/2016 JANINE LAU, WILL Ot Z95.1 02/19/2016 JOAN DAVID, MANNY K Ot I10 02/28/2016 UMAIR LAU, PAIGE R Ot R05 02/28/2016 UMAIR LAU, PAIGE R Ot R05 02/29/2016 JANINE LAU, WILL Ot C91.10 02/29/2016 JANINE LAU, WILL Ot D50.9 02/29/2016 JANINE LAU, WILL Ot I25.10 02/29/2016 JANINE LAU, WILL Ot K21.9 02/29/2016 JANINE LAU, WILL Ot Z79.899 02/29/2016 JANINE LAU, WILL Ot Z95.1 03/06/2016 JOAN DAVID, MANNY [place] Ot I10 03/07/2016 JANINE LAU, WILL Ot C91.10 03/07/2016 JANINE LAU, WILL Ot D50.9 03/07/2016 JANINE LAU, WILL Ot I25.10 03/07/2016 JANINE LAU, WILL Ot K21.9 03/07/2016 JANINE LAU, WILL Ot Z79.899 03/07/2016 JANINE LAU, WILL Ot Z95.1 04/16/2016 JANINE LAU, WILL [place] C91.10 CHRONIC LYMPHOCYTIC LEUK OF B-CELL TYPE 04/16/2016 WILL MEHTA MD Ot D50.9 IRON DEFICIENCY ANEMIA, UNSPECIFIED 04/16/2016 JANINE LAU, WILL [place] I25.10 ATHSCL HEART DISEASE OF [place] CORONARY 04/16/2016 JANINE LAU, WILL Hightower K21.9 GASTRO-ESOPHAGEAL REFLUX DISEASE WITHOUT 04/16/2016 JANINE LAU, WILL Ot Z79.899 OTHER USP (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 THERAPY 04/16/2016 WILL MEHTA MD Ot Z95.1 PRESENCE OF AORTOCORONARY BYPASS GRAFT 04/17/2016 PAIGE BLOCK MD Ot S20.302A UNSP SUPERFICIAL INJURIES OF LEFT FRONT 04/17/2016 PAIGE BLOCK MD Ot W19.XXXA UNSPECIFIED FALL, INITIAL ENCOUNTER 04/17/2016 PAIGE BLOCK MD Ot Y99.8 OTHER EXTERNAL CAUSE STATUS 04/17/2016 PAIGE BLOCK MD R Ot S20.302A UNSP SUPERFICIAL INJURIES OF LEFT FRONT 04/17/2016 PAIGE BLOCK MD R Ot W19.XXXA UNSPECIFIED FALL, INITIAL ENCOUNTER 04/17/2016 PAIGE BLOCK MD Ot Y99.8 OTHER EXTERNAL CAUSE STATUS 04/25/2016 WILL MEHTA MD, Ot C91.10 CHRONIC LYMPHOCYTIC LEUK OF B-CELL TYPE 04/25/2016 WILL MEHTA MD Ot D50.9 IRON DEFICIENCY ANEMIA, UNSPECIFIED 04/25/2016 WILL MEHTA MD, Ot I25.10 ATHSCL HEART DISEASE OF [place] CORONARY 04/25/2016 WILL MEHTA MD, Ot K21.9 GASTRO-ESOPHAGEAL REFLUX DISEASE WITHOUT 04/25/2016 WILL MEHTA MD, Ot Z79.899 OTHER USP (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 THERAPY 04/25/2016 WILL MEHTA MD, Ot Z95.1 PRESENCE OF AORTOCORONARY BYPASS GRAFT 05/11/2016 PAIGE BLOCK MD Ot S20.302A UNSP SUPERFICIAL INJURIES OF LEFT FRONT 05/11/2016 PAIGE BLOCK MD Ot W19.XXXA UNSPECIFIED FALL, INITIAL ENCOUNTER 05/11/2016 PAIGE BLOCK MD Ot Y99.8 OTHER EXTERNAL CAUSE STATUS 05/23/2016 MONIKA DARBY APRN Ot R06.00 DYSPNEA, UNSPECIFIED 06/01/2016 MONIKA DARBY APRN Ot R06.02 SHORTNESS OF BREATH 06/04/2016 WILL MEHTA MD, Ot C91.10 CHRONIC LYMPHOCYTIC LEUK OF B-CELL TYPE 06/04/2016 WILL MEHTA MD, Ot D50.9 IRON DEFICIENCY ANEMIA, UNSPECIFIED 06/04/2016 WILL MEHTA MD, Ot I25.10 ATHSCL HEART DISEASE OF [place] CORONARY 06/04/2016 WILL MEHTA MD, Ot K21.9 GASTRO-ESOPHAGEAL REFLUX DISEASE WITHOUT 06/04/2016 WILL MEHTA MD, Ot Z79.899 OTHER USP (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 THERAPY 06/04/2016 WILL MEHTA MD Ot Z95.1 PRESENCE OF AORTOCORONARY BYPASS GRAFT 06/07/2016 WILL MEHTA MD, Ot C91.10 CHRONIC LYMPHOCYTIC LEUK OF B-CELL TYPE 06/07/2016 WILL MEHTA MD Ot D50.9 IRON DEFICIENCY ANEMIA, UNSPECIFIED 06/07/2016 WILL MEHTA MD, Ot I25.10 ATHSCL HEART DISEASE OF [place] CORONARY 06/07/2016 WILL MEHTA MD, Ot K21.9 GASTRO-ESOPHAGEAL REFLUX DISEASE WITHOUT 06/07/2016 WILL MEHTA MD, Ot Z79.899 OTHER USP (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 THERAPY 06/07/2016 WILL MEHTA MD, Ot Z95.1 PRESENCE OF AORTOCORONARY BYPASS GRAFT 06/14/2016 MONIKA DARBY APRN Ot J84.10 PULMONARY FIBROSIS, UNSPECIFIED 06/14/2016 MONIKA DARBY APRN Ot S22.41XA MULTIPLE FRACTURES OF RIBS, RIGHT SIDE, 06/14/2016 MONIKA DARBY APRN Ot X52.XXXA PROLONGED STAY IN WEIGHTLESS ENVIRONMENT 06/14/2016 MONIKA DARBY APRN Ot Y99.8 OTHER EXTERNAL CAUSE STATUS 06/21/2016 MONIKA DARBY APRN Ot J84.10 PULMONARY FIBROSIS, UNSPECIFIED 06/21/2016 MONIKA DARBY APRN Ot S22.41XA MULTIPLE FRACTURES OF RIBS, RIGHT SIDE, 06/21/2016 MONIKA DARBY APRN Ot X52.XXXA PROLONGED STAY IN WEIGHTLESS ENVIRONMENT 06/21/2016 MONIKA DARBY APRN Ot Y99.8 OTHER EXTERNAL CAUSE STATUS 06/27/2016 LASHAUN ELIAS MD Ot M54.5 LOW BACK PAIN 06/29/2016 LASHAUN ELIAS MD Ot M47.816 SPONDYLOSIS W/O MYELOPATHY OR RADICULOPA 07/01/2016 PAIGE BLOCK MD, Ot C91.10 CHRONIC LYMPHOCYTIC LEUK OF B-CELL TYPE 07/01/2016 PAIGE BLOCK MD Ot D64.9 ANEMIA, UNSPECIFIED 07/01/2016 PAIGE BLOCK MD Ot E66.9 OBESITY, UNSPECIFIED 07/01/2016 PAIGE BLOCK MD Ot E78.5 HYPERLIPIDEMIA, UNSPECIFIED 07/01/2016 PAIGE BLOCK MD Ot I10 ESSENTIAL (PRIMARY) HYPERTENSION 07/01/2016 PAIGE BLOCK MD Ot I25.10 ATHSCL HEART DISEASE OF [place] CORONARY 07/01/2016 UMAIR LAU, PAIGE Forte Ot I47.1 SUPRAVENTRICULAR TACHYCARDIA 07/01/2016 PAIGE BLOCK MD Ot K21.9 GASTRO-ESOPHAGEAL REFLUX DISEASE WITHOUT 07/01/2016 UMAIR LAU, PAIGE Forte Ot R60.0 LOCALIZED EDEMA 07/01/2016 UMAIR LAU, PAIGE R Ot Z68.39 BODY MASS INDEX (BMI) 39.0-39.9, ADULT 07/01/2016 UMAIR LAU, PAIGE R Ot Z79.899 OTHER USP (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 THERAPY 07/01/2016 UMAIR LAU, PAIGE Forte Ot Z95.1 PRESENCE OF AORTOCORONARY BYPASS GRAFT 07/03/2016 Ot 729.82 CRAMP IN LIMB 07/03/2016 Ot 204.10 CHRONIC LYMPHOID LEUKEMIA, W/O MENTION A 07/03/2016 Ot 204.10 CHRONIC LYMPHOID LEUKEMIA, W/O MENTION A 07/03/2016 Ot 285.9 ANEMIA NOS 07/03/2016 Ot 414.00 CORON ATHEROSCLER NOS TYPE VESSEL, NATIV 07/03/2016 Ot 530.81 ESOPHAGEAL REFLUX 07/03/2016 Ot V45.81 AORTOCORONARY BYPASS 07/03/2016 Ot V45.82 PERCUTANEOUS TRANSLUM CORON ANGIOPLASTY 07/03/2016 Ot V58.63 LONG-TERM(CURRENT)USE OF ANTIPLATELET/AN 07/03/2016 Ot V58.66 LONG-TERM (CURRENT) USE OF ASPIRIN 07/03/2016 Ot V58.69 OTH MED,LT,CURRENT USE 07/03/2016 Ot 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 07/03/2016 Ot 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 DISEASE 07/03/2016 Ot 401.9 HYPERTENSION NOS 07/03/2016 Ot 414.00 CORON ATHEROSCLER NOS TYPE VESSEL, NATIV 07/03/2016 Ot 786.50 CHEST PAIN NOS 07/03/2016 Ot 401.9 HYPERTENSION NOS 07/03/2016 Ot 414.00 CORON ATHEROSCLER NOS TYPE VESSEL, NATIV 07/03/2016 Ot 786.50 CHEST PAIN NOS 07/03/2016 Ot 272.4 HYPERLIPIDEMIA NEC/NOS 07/03/2016 Ot 401.9 HYPERTENSION NOS 07/03/2016 Ot 414.01 CORONARY ATHEROSCLEROSIS OF [place] CORON 07/03/2016 Ot 285.9 ANEMIA NOS 07/03/2016 Ot 285.9 ANEMIA NOS 07/03/2016 Ot 285.9 ANEMIA NOS 07/03/2016 Ot 204.10 CHRONIC LYMPHOID LEUKEMIA, W/O MENTION A 07/03/2016 Ot 611.72 LUMP OR MASS IN BREAST 07/03/2016 Ot 272.4 HYPERLIPIDEMIA NEC/NOS 07/03/2016 Ot 414.00 CORON ATHEROSCLER NOS TYPE VESSEL, NATIV 07/03/2016 Ot 272.4 HYPERLIPIDEMIA NEC/NOS 07/03/2016 Ot 401.9 HYPERTENSION NOS 07/03/2016 Ot 414.01 CORONARY ATHEROSCLEROSIS OF [place] CORON 07/03/2016 Ot 414.01 CORONARY ATHEROSCLEROSIS OF [place] CORON 07/03/2016 Ot 785.1 PALPITATIONS 07/03/2016 UMAIR LAU, PAIGE R Ot 724.2 LUMBAGO 07/03/2016 UMAIR LAU, PAIGE R Ot 737.30 IDIOPATHIC SCOLIOSIS 07/03/2016 UMAIR LAU, PAIGE R Ot 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 07/03/2016 UMAIR LAU, PAIGE R Ot 272.4 HYPERLIPIDEMIA NEC/NOS 07/03/2016 UMAIR LAU, PAIGE R Ot 401.9 HYPERTENSION NOS 07/03/2016 UMAIR LAU, PAIGE R Ot 729.82 CRAMP IN LIMB 07/03/2016 UMAIR LAU, PAIGE R Ot 780.79 OTH MALAISE FATIGUE 07/03/2016 UMAIR LAU, PAIGE R Ot V76.12 OTH SCREEN MAMMO-MALIGN NEOPLASM OF [place] 07/03/2016 PAIGE BLOCK MD R Ot 574.20 CHOLELITHIASIS NOS 07/03/2016 TINO KAPOOR DO Ot 414.00 CORON ATHEROSCLER NOS TYPE VESSEL, NATIV 07/03/2016 TINO KAPOOR DO Ot 574.20 CHOLELITHIASIS NOS 07/03/2016 TINO KAPOOR DO Ot V72.63 PRE-PROCEDURAL LABORATORY EXAMINATION 07/03/2016 TINO KAPOOR DO Ot V74.8 SCREEN-BACTERIAL DIS NEC 07/03/2016 PAIGE BLOCK MD R Ot 729.5 PAIN IN LIMB 07/03/2016 KRISSY DOAN Ot 204.10 CHRONIC LYMPHOID LEUKEMIA, W/O MENTION A 07/03/2016 DOAN, HILAH S BID MANAGER Ot 285.9 ANEMIA NOS 07/03/2016 KRISSY DOAN BID MANAGER Ot 414.00 CORON ATHEROSCLER NOS TYPE VESSEL, NATIV 07/03/2016 KRISSY DOAN BID MANAGER Ot 530.81 ESOPHAGEAL REFLUX 07/03/2016 KRISSY DOAN BID MANAGER Ot V45.81 AORTOCORONARY BYPASS 07/03/2016 KRISSY DOAN BID MANAGER Ot V58.69 OTH MED,LT,CURRENT USE 07/03/2016 MANNY MEIER Ot C91.10 CHRONIC LYMPHOCYTIC LEUK OF B- CELL TYPE 07/03/2016 MANNY MEIER Ot I10 ESSENTIAL (PRIMARY) HYPERTENSION 07/03/2016 MANNY MEIER Ot I25.10 ATHSCL HEART DISEASE OF [place] CORONARY 07/03/2016 MANNY MEIER Ot 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 BILATERAL [place] 07/03/2016 MANNY MEIER Ot C91.10 CHRONIC LYMPHOCYTIC LEUK OF B- CELL TYPE 07/03/2016 MANNY MEIER Ot I10 ESSENTIAL (PRIMARY) HYPERTENSION 07/03/2016 MANNY MEIER Ot I25.10 ATHSCL HEART DISEASE OF [place] CORONARY 07/03/2016 MANNY MEIER Ot 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 BILATERAL [place] 07/03/2016 MANNY MEIER Ot C91.10 CHRONIC LYMPHOCYTIC LEUK OF B- CELL TYPE 07/03/2016 MANNY MEIER Ot I10 ESSENTIAL (PRIMARY) HYPERTENSION 07/03/2016 MANNY MEIER Ot I25.10 ATHSCL HEART DISEASE OF [place] CORONARY 07/03/2016 MANNY MEIER Ot 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 BILATERAL [place] 07/03/2016 PAIGE BLOCK MD R Ot R05 COUGH 07/03/2016 MANNY MEIER Ot I10 ESSENTIAL (PRIMARY) HYPERTENSION 07/03/2016 PAIGE BLOCK MD R Ot S20.302A UNSP SUPERFICIAL INJURIES OF LEFT FRONT 07/03/2016 SEGLIE MD, PAIGE R Ot W19.XXXA UNSPECIFIED FALL, INITIAL ENCOUNTER 07/03/2016 UMAIR LAU, PAIGE R Ot Y99.8 OTHER EXTERNAL CAUSE STATUS 07/03/2016 MONIKA DARBY APRN Ot R06.02 SHORTNESS OF BREATH 07/03/2016 MONIKA DARBY APRN Ot J84.10 PULMONARY FIBROSIS, UNSPECIFIED 07/03/2016 MONIKA DARBY APRN Ot S22.41XA MULTIPLE FRACTURES OF RIBS, RIGHT SIDE, 07/03/2016 MONIKA DARBY APRN Ot X52.XXXA PROLONGED STAY IN WEIGHTLESS ENVIRONMENT 07/03/2016 MONIKA DARBY APRN Ot Y99.8 OTHER EXTERNAL CAUSE STATUS 07/03/2016 WILL MEHTA MD, Ot C91.10 CHRONIC LYMPHOCYTIC LEUK OF B-CELL TYPE 07/03/2016 WILL MEHTA MD, Ot D50.9 IRON DEFICIENCY ANEMIA, UNSPECIFIED 07/03/2016 WILL MEHTA MD, Ot I25.10 ATHSCL HEART DISEASE OF [place] CORONARY 07/03/2016 WILL MEHTA MD Ot K21.9 GASTRO-ESOPHAGEAL REFLUX DISEASE WITHOUT 07/03/2016 WILL MEHTA MD, Ot Z79.899 OTHER USP (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 THERAPY 07/03/2016 WILL MEHTA MD, Ot Z95.1 PRESENCE OF AORTOCORONARY BYPASS GRAFT 07/03/2016 LASHAUN ELIAS MD Ot M54.5 LOW BACK PAIN 07/03/2016 ELISABETH ARAYA MD, Ot C91.10 CHRONIC LYMPHOCYTIC LEUK OF B-CELL TYPE 07/03/2016 ELISABETH ARAYA MD Ot E66.9 OBESITY, UNSPECIFIED 07/03/2016 ELISABETH ARAYA MD, Ot E78.5 HYPERLIPIDEMIA, UNSPECIFIED 07/03/2016 ELISABETH ARAYA MD Ot I10 ESSENTIAL (PRIMARY) HYPERTENSION 07/03/2016 ELISABETH ARAYA MD, Ot I25.10 ATHSCL HEART DISEASE OF [place] CORONARY 07/03/2016 ELISABETH ARAYA MD, Ot I25.810 ATHEROSCLEROSIS OF CABG W/O ANGINA PECTO 07/03/2016 ELISABETH ARAYA MD Ot I47.1 SUPRAVENTRICULAR TACHYCARDIA 07/03/2016 ELISABETH ARAYA MD Ot R07.9 CHEST PAIN, UNSPECIFIED 07/03/2016 ELISABETH ARAYA MD Ot R60.0 LOCALIZED EDEMA 07/03/2016 ELISABETH ARAYA MD Ot Z68.39 BODY MASS INDEX (BMI) 39.0-39.9, ADULT 07/03/2016 ELISABETH ARAYA MD Ot Z95.1 PRESENCE OF AORTOCORONARY BYPASS GRAFT 07/03/2016 ELISABETH ARAYA MD Ot Z95.5 PRESENCE OF CORONARY ANGIOPLASTY IMPLANT 07/03/2016 Ot 729.82 CRAMP IN LIMB 07/03/2016 Ot 204.10 CHRONIC LYMPHOID LEUKEMIA, W/O MENTION A 07/03/2016 Ot 204.10 CHRONIC LYMPHOID LEUKEMIA, W/O MENTION A 07/03/2016 Ot 285.9 ANEMIA NOS 07/03/2016 Ot 414.00 CORON ATHEROSCLER NOS TYPE VESSEL, NATIV 07/03/2016 Ot 530.81 ESOPHAGEAL REFLUX 07/03/2016 Ot V45.81 AORTOCORONARY BYPASS 07/03/2016 Ot V45.82 PERCUTANEOUS TRANSLUM CORON ANGIOPLASTY 07/03/2016 Ot V58.63 LONG-TERM(CURRENT)USE OF ANTIPLATELET/AN 07/03/2016 Ot V58.66 LONG-TERM (CURRENT) USE OF ASPIRIN 07/03/2016 Ot V58.69 OTH MED,LT,CURRENT USE 07/03/2016 Ot 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 07/03/2016 Ot 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 DISEASE 07/03/2016 Ot 401.9 HYPERTENSION NOS 07/03/2016 Ot 414.00 CORON ATHEROSCLER NOS TYPE VESSEL, NATIV 07/03/2016 Ot 786.50 CHEST PAIN NOS 07/03/2016 Ot 401.9 HYPERTENSION NOS 07/03/2016 Ot 414.00 CORON ATHEROSCLER NOS TYPE VESSEL, NATIV 07/03/2016 Ot 786.50 CHEST PAIN NOS 07/03/2016 Ot 272.4 HYPERLIPIDEMIA NEC/NOS 07/03/2016 Ot 401.9 HYPERTENSION NOS 07/03/2016 Ot 414.01 CORONARY ATHEROSCLEROSIS OF [place] CORON 07/03/2016 Ot 285.9 ANEMIA NOS 07/03/2016 Ot 285.9 ANEMIA NOS 07/03/2016 Ot 285.9 ANEMIA NOS 07/03/2016 Ot 204.10 CHRONIC LYMPHOID LEUKEMIA, W/O MENTION A 07/03/2016 Ot 611.72 LUMP OR MASS IN BREAST 07/03/2016 Ot 272.4 HYPERLIPIDEMIA NEC/NOS 07/03/2016 Ot 414.00 CORON ATHEROSCLER NOS TYPE VESSEL, NATIV 07/03/2016 Ot 272.4 HYPERLIPIDEMIA NEC/NOS 07/03/2016 Ot 401.9 HYPERTENSION NOS 07/03/2016 Ot 414.01 CORONARY ATHEROSCLEROSIS OF [place] CORON 07/03/2016 Ot 414.01 CORONARY ATHEROSCLEROSIS OF [place] CORON 07/03/2016 Ot 785.1 PALPITATIONS 07/03/2016 PAIGE BLOCK MD R Ot 724.2 LUMBAGO 07/03/2016 UMAIR LAU, PAIGE R Ot 737.30 IDIOPATHIC SCOLIOSIS 07/03/2016 UMAIR LAU, PAIGE R Ot 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 07/03/2016 PAIGE BLOCK MD R Ot 272.4 HYPERLIPIDEMIA NEC/NOS 07/03/2016 PAIGE BLOCK MD R Ot 401.9 HYPERTENSION NOS 07/03/2016 PAIGE BLOCK MD R Ot 729.82 CRAMP IN LIMB 07/03/2016 PAIGE BLOCK MD R Ot 780.79 OTH MALAISE FATIGUE 07/03/2016 PAIGE BLOCK MD R Ot V76.12 OTH SCREEN MAMMO-MALIGN NEOPLASM OF [place] 07/03/2016 PAIGE BLOCK MD R Ot 574.20 CHOLELITHIASIS NOS 07/03/2016 TINO KAPOOR DO Ot 414.00 CORON ATHEROSCLER NOS TYPE VESSEL, NATIV 07/03/2016 TINO KAPOOR DO Ot 574.20 CHOLELITHIASIS NOS 07/03/2016 KAPOOR TINO MITCHELL Ot V72.63 PRE-PROCEDURAL LABORATORY EXAMINATION 07/03/2016 TINO KAPOOR DO Ot V74.8 SCREEN-BACTERIAL DIS NEC 07/03/2016 PAIGE BLOCK MD R Ot 729.5 PAIN IN LIMB 07/03/2016 KRISSY DOANP Ot 204.10 CHRONIC LYMPHOID LEUKEMIA, W/O MENTION A 07/03/2016 KRISSY ODANP Ot 285.9 ANEMIA NOS 07/03/2016 KRISSY DOANP Ot 414.00 CORON ATHEROSCLER NOS TYPE VESSEL, NATIV 07/03/2016 KRISSY DOANP Ot 530.81 ESOPHAGEAL REFLUX 07/03/2016 KRISSY DOANP Ot V45.81 AORTOCORONARY BYPASS 07/03/2016 DOANKRISSY Conley BID MANAGER Ot V58.69 OT MED,LT,CURRENT USE 07/03/2016 JOAN DAVID MANNY K Ot C91.10 CHRONIC LYMPHOCYTIC LEUK OF B- CELL TYPE 07/03/2016 KIM-JUS DAVID MANNY K Ot I10 ESSENTIAL (PRIMARY) HYPERTENSION 07/03/2016 KIM-JUS DAVID MANNY K Ot I25.10 ATHSCL HEART DISEASE OF [place] CORONARY 07/03/2016 KIM-JUS DAVID MANNY K Ot 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 BILATERAL [place] 07/03/2016 KIM-JUS DAVID MANNY K Ot C91.10 CHRONIC LYMPHOCYTIC LEUK OF B- CELL TYPE 07/03/2016 KIM-JUS DAVID MANNY K Ot I10 ESSENTIAL (PRIMARY) HYPERTENSION 07/03/2016 JOAN DAVID MANNY K Ot I25.10 ATHSCL HEART DISEASE OF [place] CORONARY 07/03/2016 KIM-JUS DAVID MANNY Rolly Ot 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 BILATERAL [place] 07/03/2016 KIM-JUS DAVID MANNY Rolly Ot C91.10 CHRONIC LYMPHOCYTIC LEUK OF B- CELL TYPE 07/03/2016 KIM-JUS DAVID MANNY K Ot I10 ESSENTIAL (PRIMARY) HYPERTENSION 07/03/2016 JOAN DAVID MANNY Rolly Ot I25.10 ATHSCL HEART DISEASE OF [place] CORONARY 07/03/2016 KIM-JUS DAVID MANNY K Ot 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 BILATERAL [place] 07/03/2016 PAIGE BLOCK MD Ot R05 COUGH 07/03/2016 JOAN DAVID MANNY K Ot I10 ESSENTIAL (PRIMARY) HYPERTENSION 07/03/2016 PAIGE BLOCK MD Ot S20.302A UNSP SUPERFICIAL INJURIES OF LEFT FRONT 07/03/2016 PAIGE BLOCK MD Ot W19.XXXA UNSPECIFIED FALL, INITIAL ENCOUNTER 07/03/2016 PAIGE BLOCK MD Ot Y99.8 OTHER EXTERNAL CAUSE STATUS 07/03/2016 MONIKA DARBY APRN Ot R06.02 SHORTNESS OF BREATH 07/03/2016 MONIKA DARBY APRN Ot J84.10 PULMONARY FIBROSIS, UNSPECIFIED 07/03/2016 MONIKA DARBY APRN Ot S22.41XA MULTIPLE FRACTURES OF RIBS, RIGHT SIDE, 07/03/2016 MONIKA DARBY APRN Ot X52.XXXA PROLONGED STAY IN WEIGHTLESS ENVIRONMENT 07/03/2016 MONIKA DARBY APRN Ot Y99.8 OTHER EXTERNAL CAUSE STATUS 07/03/2016 WILL MEHTA MD Ot C91.10 CHRONIC LYMPHOCYTIC LEUK OF B-CELL TYPE 07/03/2016 WILL MEHTA MD Ot D50.9 IRON DEFICIENCY ANEMIA, UNSPECIFIED 07/03/2016 WILL EMHTA MD Ot I25.10 ATHSCL HEART DISEASE OF [place] CORONARY 07/03/2016 WILL MEHTA MD Ot K21.9 GASTRO-ESOPHAGEAL REFLUX DISEASE WITHOUT 07/03/2016 WILL MEHTA MD Ot 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 07/03/2016 WILL MEHTA MD Ot Z95.1 PRESENCE OF AORTOCORONARY BYPASS GRAFT 07/03/2016 JADA LAU, LASHAUN Wallace Ot M54.5 LOW BACK PAIN 07/05/2016 MONIKA DARBY APRN Ot R06.02 SHORTNESS OF BREATH 07/11/2016 Ot 729.82 CRAMP IN LIMB 07/11/2016 Ot 204.10 CHRONIC LYMPHOID LEUKEMIA, W/O MENTION A 07/11/2016 Ot 204.10 CHRONIC LYMPHOID LEUKEMIA, W/O MENTION A 07/11/2016 Ot 285.9 ANEMIA NOS 07/11/2016 Ot 414.00 CORON ATHEROSCLER NOS TYPE VESSEL, NATIV 07/11/2016 Ot 530.81 ESOPHAGEAL REFLUX 07/11/2016 Ot V45.81 AORTOCORONARY BYPASS 07/11/2016 Ot V45.82 PERCUTANEOUS TRANSLUM CORON ANGIOPLASTY 07/11/2016 Ot V58.63 LONG-TERM(CURRENT)USE OF ANTIPLATELET/AN 07/11/2016 Ot V58.66 LONG-TERM (CURRENT) USE OF ASPIRIN 07/11/2016 Ot V58.69 OTH MED,LT,CURRENT USE 07/11/2016 Ot 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 07/11/2016 Ot 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 DISEASE 07/11/2016 Ot 401.9 HYPERTENSION NOS 07/11/2016 Ot 414.00 CORON ATHEROSCLER NOS TYPE VESSEL, NATIV 07/11/2016 Ot 786.50 CHEST PAIN NOS 07/11/2016 Ot 401.9 HYPERTENSION NOS 07/11/2016 Ot 414.00 CORON ATHEROSCLER NOS TYPE VESSEL, NATIV 07/11/2016 Ot 786.50 CHEST PAIN NOS 07/11/2016 Ot 272.4 HYPERLIPIDEMIA NEC/NOS 07/11/2016 Ot 401.9 HYPERTENSION NOS 07/11/2016 Ot 414.01 CORONARY ATHEROSCLEROSIS OF [place] CORON 07/11/2016 Ot 285.9 ANEMIA NOS 07/11/2016 Ot 285.9 ANEMIA NOS 07/11/2016 Ot 285.9 ANEMIA NOS 07/11/2016 Ot 204.10 CHRONIC LYMPHOID LEUKEMIA, W/O MENTION A 07/11/2016 Ot 611.72 LUMP OR MASS IN BREAST 07/11/2016 Ot 272.4 HYPERLIPIDEMIA NEC/NOS 07/11/2016 Ot 414.00 CORON ATHEROSCLER NOS TYPE VESSEL, NATIV 07/11/2016 Ot 272.4 HYPERLIPIDEMIA NEC/NOS 07/11/2016 Ot 401.9 HYPERTENSION NOS 07/11/2016 Ot 414.01 CORONARY ATHEROSCLEROSIS OF [place] CORON 07/11/2016 Ot 414.01 CORONARY ATHEROSCLEROSIS OF [place] CORON 07/11/2016 Ot 785.1 PALPITATIONS 07/11/2016 UMAIR LAU, PAIGE R Ot 724.2 LUMBAGO 07/11/2016 UMAIR LAU, PAIGE R Ot 737.30 IDIOPATHIC SCOLIOSIS 07/11/2016 UMAIR LAU, PAIGE R Ot 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 07/11/2016 UMAIR LAU, PAIGE R Ot 272.4 HYPERLIPIDEMIA NEC/NOS 07/11/2016 UMAIR LAU, PAIGE R Ot 401.9 HYPERTENSION NOS 07/11/2016 UMAIR LAU, PAIGE R Ot 729.82 CRAMP IN LIMB 07/11/2016 UMAIR LAU, PAIGE R Ot 780.79 OTH MALAISE FATIGUE 07/11/2016 UMAIR LAU, PAIGE R Ot V76.12 OTH SCREEN MAMMO-MALIGN NEOPLASM OF [place] 07/11/2016 UMAIR LAU, PAIGE R Ot 574.20 CHOLELITHIASIS NOS 07/11/2016 TINO KAPOOR DO Ot 414.00 CORON ATHEROSCLER NOS TYPE VESSEL, NATIV 07/11/2016 TINO KAPOOR DO Ot 574.20 CHOLELITHIASIS NOS 07/11/2016 TINO KAPOOR DO Ot V72.63 PRE-PROCEDURAL LABORATORY EXAMINATION 07/11/2016 TINO KAPOOR DO Ot V74.8 SCREEN-BACTERIAL DIS NEC 07/11/2016 UMAIR LAU, PAIGE R Ot 729.5 PAIN IN LIMB 07/11/2016 KRISSY DOAN BID MANAGER Ot 204.10 CHRONIC LYMPHOID LEUKEMIA, W/O MENTION A 07/11/2016 KRISSY DOAN BID MANAGER Ot 285.9 ANEMIA NOS 07/11/2016 KRISSY DOAN BID MANAGER Ot 414.00 CORON ATHEROSCLER NOS TYPE VESSEL, NATIV 07/11/2016 KRISSY DOAN BID MANAGER Ot 530.81 ESOPHAGEAL REFLUX 07/11/2016 KRISSY DOAN BID MANAGER Ot V45.81 AORTOCORONARY BYPASS 07/11/2016 KRISSY DOAN BID MANAGER Ot V58.69 OT MED,LT,CURRENT USE 07/11/2016 MANNY MEIER Ot C91.10 CHRONIC LYMPHOCYTIC LEUK OF B- CELL TYPE 07/11/2016 MANNY MEIER Ot I10 ESSENTIAL (PRIMARY) HYPERTENSION 07/11/2016 MANNY MEIER Ot I25.10 ATHSCL HEART DISEASE OF [place] CORONARY 07/11/2016 MANNY MEIER Ot 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 BILATERAL [place] 07/11/2016 MANNY MEIER Ot C91.10 CHRONIC LYMPHOCYTIC LEUK OF B- CELL TYPE 07/11/2016 MANNY MEIER Ot I10 ESSENTIAL (PRIMARY) HYPERTENSION 07/11/2016 MANNY MEIER Ot I25.10 ATHSCL HEART DISEASE OF [place] CORONARY 07/11/2016 MANNY MEIER Ot 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 BILATERAL [place] 07/11/2016 MANNY MEIER Ot C91.10 CHRONIC LYMPHOCYTIC LEUK OF B- CELL TYPE 07/11/2016 MANNY MEIER Ot I10 ESSENTIAL (PRIMARY) HYPERTENSION 07/11/2016 MANNY MEIER Ot I25.10 ATHSCL HEART DISEASE OF [place] CORONARY 07/11/2016 MANNY MEIER Ot 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 BILATERAL [place] 07/11/2016 PAIGE BLOCK MD Ot R05 COUGH 07/11/2016 MANNY MEIER Ot I10 ESSENTIAL (PRIMARY) HYPERTENSION 07/11/2016 PAIGE BLOCK MD, Ot S20.302A UNSP SUPERFICIAL INJURIES OF LEFT FRONT 07/11/2016 PAIGE BLOCK MD, Ot W19.XXXA UNSPECIFIED FALL, INITIAL ENCOUNTER 07/11/2016 PAIGE BLOCK MD Ot Y99.8 OTHER EXTERNAL CAUSE STATUS 07/11/2016 MONIKA DARBY APRN Ot R06.02 SHORTNESS OF BREATH 07/11/2016 MONIKA DARBY APRN Ot J84.10 PULMONARY FIBROSIS, UNSPECIFIED 07/11/2016 MONIKA DARBY APRN Ot S22.41XA MULTIPLE FRACTURES OF RIBS, RIGHT SIDE, 07/11/2016 MONIKA DARBY APRN Ot X52.XXXA PROLONGED STAY IN WEIGHTLESS ENVIRONMENT 07/11/2016 MONIKA DARBY APRN Ot Y99.8 OTHER EXTERNAL CAUSE STATUS 07/11/2016 WILL MEHTA MD, Ot C91.10 CHRONIC LYMPHOCYTIC LEUK OF B-CELL TYPE 07/11/2016 WILL MEHTA MD, Ot D50.9 IRON DEFICIENCY ANEMIA, UNSPECIFIED 07/11/2016 WILL MEHTA MD, Ot I25.10 ATHSCL HEART DISEASE OF [place] CORONARY 07/11/2016 WILL MEHTA MD Ot K21.9 GASTRO-ESOPHAGEAL REFLUX DISEASE WITHOUT 07/11/2016 WILL MEHTA MD, Ot Z79.899 OTHER USP (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 THERAPY 07/11/2016 WILL MEHTA MD, Ot Z95.1 PRESENCE OF AORTOCORONARY BYPASS GRAFT 07/11/2016 LASHAUN ELIAS MD Ot M54.5 LOW BACK PAIN 07/11/2016 ELISABETH ARAYA MD Ot R00.2 PALPITATIONS 07/12/2016 LASHAUN ELIAS MD Ot M47.816 SPONDYLOSIS W/O MYELOPATHY OR RADICULOPA 07/17/2016 WILL MEHTA MD, Ot C91.10 CHRONIC LYMPHOCYTIC LEUK OF B-CELL TYPE 07/17/2016 XUN MD, PRITCHARD-JOSEFA Ot D50.9 IRON DEFICIENCY ANEMIA, UNSPECIFIED 07/17/2016 WILL MEHTA MD Ot I25.10 ATHSCL HEART DISEASE OF [place] CORONARY 07/17/2016 WILL MEHTA MD Ot K21.9 GASTRO-ESOPHAGEAL REFLUX DISEASE WITHOUT 07/17/2016 WILL MEHTA MD, Ot Z79.899 OTHER USP (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 THERAPY 07/17/2016 WILL MEHTA MD Ot Z95.1 PRESENCE OF AORTOCORONARY BYPASS GRAFT 07/17/2016 LASHAUN ELIAS MD, Ot M54.5 LOW BACK PAIN 07/23/2016 MONIKA DARBY APRN Ot R06.02 SHORTNESS OF BREATH 07/26/2016 WILL MEHTA MD, Ot C91.10 CHRONIC LYMPHOCYTIC LEUK OF B-CELL TYPE 07/26/2016 WILL MEHTA MD, Ot D50.9 IRON DEFICIENCY ANEMIA, UNSPECIFIED 07/26/2016 WILL MEHTA MD Ot I25.10 ATHSCL HEART DISEASE OF [place] CORONARY 07/26/2016 WILL MEHTA MD, Ot K21.9 GASTRO-ESOPHAGEAL REFLUX DISEASE WITHOUT 07/26/2016 WILL MEHTA MD, Ot 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 07/26/2016 WILL MEHTA MD Ot Z95.1 PRESENCE OF AORTOCORONARY BYPASS GRAFT 07/26/2016 LASHAUN ELIAS MD Ot M54.5 LOW BACK PAIN 08/13/2016 ELISABETH ARAYA MD, Ot C91.10 CHRONIC LYMPHOCYTIC LEUK OF B-CELL TYPE 08/13/2016 ELISABETH ARAYA MD Ot D64.9 ANEMIA, UNSPECIFIED 08/13/2016 ELISABETH ARAYA MD Ot E78.5 HYPERLIPIDEMIA, UNSPECIFIED 08/13/2016 ELISABETH ARAYA MD Ot I10 ESSENTIAL (PRIMARY) HYPERTENSION 08/13/2016 ELISABETH ARAYA MD, Ot I25.10 ATHSCL HEART DISEASE OF [place] CORONARY 08/13/2016 ELISABETH ARAYA MD, Ot 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 08/13/2016 ELISABETH ARAYA MD Ot I65.29 OCCLUSION AND STENOSIS OF UNSPECIFIED CA 08/13/2016 ELISABETH ARAYA MD Ot R94.39 ABNORMAL RESULT OF OTHER CARDIOVASCULAR 08/13/2016 ELISBAETH ARAYA MD, Ot 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 08/13/2016 ELISABETH ARAYA MD, Ot Z95.1 PRESENCE OF AORTOCORONARY BYPASS GRAFT 08/13/2016 ELISABETH ARAYA MD Ot Z98.61 CORONARY ANGIOPLASTY STATUS 08/16/2016 ELISABETH ARAYA MD Ot R00.2 PALPITATIONS 08/22/2016 ELISABETH ARAYA MD Ot R00.2 PALPITATIONS 08/31/2016 WILL MEHTA MD, Ot C91.10 CHRONIC LYMPHOCYTIC LEUK OF B-CELL TYPE 08/31/2016 WILL MEHTA MD Ot D50.9 IRON DEFICIENCY ANEMIA, UNSPECIFIED 08/31/2016 WILL MEHTA MD, Ot I25.10 ATHSCL HEART DISEASE OF [place] CORONARY 08/31/2016 WILL MEHTA MD, Ot K21.9 GASTRO-ESOPHAGEAL REFLUX DISEASE WITHOUT 08/31/2016 WILL MEHTA MD, Ot Z79.899 OTHER USP (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 THERAPY 08/31/2016 WILL MEHTA MD Ot Z95.1 PRESENCE OF AORTOCORONARY BYPASS GRAFT 09/13/2016 WILL MEHTA MD Ot C91.10 CHRONIC LYMPHOCYTIC LEUK OF B-CELL TYPE 09/13/2016 WILL MEHTA MD, Ot D50.9 IRON DEFICIENCY ANEMIA, UNSPECIFIED 09/13/2016 WILL MEHTA MD Ot I25.10 ATHSCL HEART DISEASE OF [place] CORONARY 09/13/2016 WILL MEHTA MD Ot K21.9 GASTRO-ESOPHAGEAL REFLUX DISEASE WITHOUT 09/13/2016 WILL MEHTA MD Ot 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 09/13/2016 WILL MEHTA MD Ot Z95.1 PRESENCE OF AORTOCORONARY BYPASS GRAFT 10/01/2016 ELISABETH ARAYA MD Ot R00.2 PALPITATIONS 10/10/2016 ALEXANDRA ALEXANDRA MD Ot I51.7 CARDIOMEGALY 10/10/2016 ALEXANDRA ALEXANDRA MD Ot M79.622 PAIN IN LEFT UPPER ARM 10/10/2016 ALEXANDRA ALEXANDRA MD Ot R00.0 TACHYCARDIA, UNSPECIFIED 10/10/2016 ALEXANDRA ALEXANDRA MD Ot R07.9 CHEST PAIN, UNSPECIFIED 10/10/2016 ALEXANDRA ALEXANDRA MD Ot Z79.82 USP (CURRENT) USE OF ASPIRIN 10/10/2016 ALEXANDRA ALEXANDRA MD Ot 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 10/16/2016 WILL MEHTA MD, Ot C91.10 CHRONIC LYMPHOCYTIC LEUK OF B-CELL TYPE 10/16/2016 WILL MEHTA MD Ot D50.9 IRON DEFICIENCY ANEMIA, UNSPECIFIED 10/16/2016 WILL MEHTA MD, Ot I25.10 ATHSCL HEART DISEASE OF [place] CORONARY 10/16/2016 WILL MEHTA MD, Ot K21.9 GASTRO-ESOPHAGEAL REFLUX DISEASE WITHOUT 10/16/2016 WILL MEHTA MD, Ot 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 10/16/2016 WILL MEHTA MD, Ot Z95.1 PRESENCE OF AORTOCORONARY BYPASS GRAFT 10/24/2016 ALEXANDRA ALEXANDRA MD Ot I51.7 CARDIOMEGALY 10/24/2016 ALEXANDRA ALEXANDRA MD Ot M79.622 PAIN IN LEFT UPPER ARM 10/24/2016 ALEXANDRA ALEXANDRA MD Ot R00.0 TACHYCARDIA, UNSPECIFIED 10/24/2016 ALEXANDRA ALEXANDRA MD Ot R07.9 CHEST PAIN, UNSPECIFIED 10/24/2016 ALEXANDRA ALEXANDRA MD Ot Z79.82 USP (CURRENT) USE OF ASPIRIN 10/24/2016 ALEXANDRA ALEXANDRA MD, Ot 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622 PAIN IN LEFT UPPER ARM 10/25/2016 ALEXANDRA ALEXANDRA MD Ot R00.0 TACHYCARDIA, UNSPECIFIED 10/25/2016 ALEXANDRA ALEXANDRA MD Ot R07.9 CHEST PAIN, UNSPECIFIED 10/25/2016 ALEXANDRA ALEXANDRA MD, Ot Z79.82 USP (CURRENT) USE OF ASPIRIN 10/25/2016 ALEXANDRA ALEXANDRA MD Ot 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 10/26/2016 MANNY MEIER Ot E78.2 MIXED HYPERLIPIDEMIA 10/26/2016 MANNY MEIER Ot I10 ESSENTIAL (PRIMARY) HYPERTENSION 10/26/2016 MANNY MEIER Ot I25.10 ATHSCL HEART DISEASE OF [place] CORONARY 10/26/2016 MANNY MEIER Ot 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 BILATERAL [place] 10/26/2016 MANNY MEIER Ot E78.2 MIXED HYPERLIPIDEMIA 10/26/2016 MANNY MEIER Ot I10 ESSENTIAL (PRIMARY) HYPERTENSION 10/26/2016 MANNY MEEIR Ot I25.10 ATHSCL HEART DISEASE OF [place] CORONARY 10/26/2016 MANNY MEIER Ot 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 [place]ILATERAL [place] 10/31/2016 Ot 729.82 CRAMP IN LIMB 10/31/2016 Ot 204.10 CHRONIC LYMPHOID LEUKEMIA, W/O MENTION A 10/31/2016 Ot 204.10 CHRONIC LYMPHOID LEUKEMIA, W/O MENTION A 10/31/2016 Ot 285.9 ANEMIA NOS 10/31/2016 Ot 414.00 CORON ATHEROSCLER NOS TYPE VESSEL, NATIV 10/31/2016 Ot 530.81 ESOPHAGEAL REFLUX 10/31/2016 Ot V45.81 AORTOCORONARY BYPASS 10/31/2016 Ot V45.82 PERCUTANEOUS TRANSLUM CORON ANGIOPLASTY 10/31/2016 Ot V58.63 LONG-TERM(CURRENT)USE OF ANTIPLATELET/AN 10/31/2016 Ot V58.66 LONG-TERM (CURRENT) USE OF ASPIRIN 10/31/2016 Ot V58.69 OTH MED,LT,CURRENT USE 10/31/2016 Ot 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 10/31/2016 Ot 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 DISEASE 10/31/2016 Ot 401.9 HYPERTENSION NOS 10/31/2016 Ot 414.00 CORON ATHEROSCLER NOS TYPE VESSEL, NATIV 10/31/2016 Ot 786.50 CHEST PAIN NOS 10/31/2016 Ot 401.9 HYPERTENSION NOS 10/31/2016 Ot 414.00 CORON ATHEROSCLER NOS TYPE VESSEL, NATIV 10/31/2016 Ot 786.50 CHEST PAIN NOS 10/31/2016 Ot 272.4 HYPERLIPIDEMIA NEC/NOS 10/31/2016 Ot 401.9 HYPERTENSION NOS 10/31/2016 Ot 414.01 CORONARY ATHEROSCLEROSIS OF [place] CORON 10/31/2016 Ot 285.9 ANEMIA NOS 10/31/2016 Ot 285.9 ANEMIA NOS 10/31/2016 Ot 285.9 ANEMIA NOS 10/31/2016 Ot 204.10 CHRONIC LYMPHOID LEUKEMIA, W/O MENTION A 10/31/2016 Ot 611.72 LUMP OR MASS IN BREAST 10/31/2016 Ot 272.4 HYPERLIPIDEMIA NEC/NOS 10/31/2016 Ot 414.00 CORON ATHEROSCLER NOS TYPE VESSEL, NATIV 10/31/2016 Ot 272.4 HYPERLIPIDEMIA NEC/NOS 10/31/2016 Ot 401.9 HYPERTENSION NOS 10/31/2016 Ot 414.01 CORONARY ATHEROSCLEROSIS OF [place] CORON 10/31/2016 Ot 414.01 CORONARY ATHEROSCLEROSIS OF [place] CORON 10/31/2016 Ot 785.1 PALPITATIONS 10/31/2016 UMAIR LAU, PAIGE R Ot 724.2 LUMBAGO 10/31/2016 UMAIR LAU, PAIGE R Ot 737.30 IDIOPATHIC SCOLIOSIS 10/31/2016 UMAIR LAU, PAIGE R Ot 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 10/31/2016 UMAIR LAU, PAIGE R Ot 272.4 HYPERLIPIDEMIA NEC/NOS 10/31/2016 UMAIR LAU, PAIGE R Ot 401.9 HYPERTENSION NOS 10/31/2016 UMAIR LAU, PAIGE R Ot 729.82 CRAMP IN LIMB 10/31/2016 UMAIR LAU, PAIGE R Ot 780.79 OTH MALAISE FATIGUE 10/31/2016 UMAIR LAU, PAIGE R Ot V76.12 OTH SCREEN MAMMO-MALIGN NEOPLASM OF [place] 10/31/2016 UMAIR LAU, PAIGE R Ot 574.20 CHOLELITHIASIS NOS 10/31/2016 KAPOOR FELIX MITCHELLBECCA Sheth Ot 414.00 CORON ATHEROSCLER NOS TYPE VESSEL, NATIV 10/31/2016 KAPOOR TINO MITCHELL Ot 574.20 CHOLELITHIASIS NOS 10/31/2016 KAPOOR TINO MITCHELL Ot V72.63 PRE-PROCEDURAL LABORATORY EXAMINATION 10/31/2016 KAPOOR TINO D Ot V74.8 SCREEN-BACTERIAL DIS NEC 10/31/2016 UMAIR LAU, PAIGE R Ot 729.5 PAIN IN LIMB 10/31/2016 KRISSY DOAN BID MANAGER Ot 204.10 CHRONIC LYMPHOID LEUKEMIA, W/O MENTION A 10/31/2016 KRISSY DOAN BID MANAGER Ot 285.9 ANEMIA NOS 10/31/2016 KRISSY DOAN BID MANAGER Ot 414.00 CORON ATHEROSCLER NOS TYPE VESSEL, NATIV 10/31/2016 KRISSY DOAN BID MANAGER Ot 530.81 ESOPHAGEAL REFLUX 10/31/2016 KRISSY DOAN BID MANAGER Ot V45.81 AORTOCORONARY BYPASS 10/31/2016 KRISSY DOAN BID MANAGER Ot V58.69 OT MED,LT,CURRENT USE 10/31/2016 MANNY MEIER Ot C91.10 CHRONIC LYMPHOCYTIC LEUK OF B- CELL TYPE 10/31/2016 MANNY MEIER Ot I10 ESSENTIAL (PRIMARY) HYPERTENSION 10/31/2016 MANNY MEIER Ot I25.10 ATHSCL HEART DISEASE OF [place] CORONARY 10/31/2016 MANNY MEIER Ot 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 BILATERAL [place] 10/31/2016 MANNY MEIER Ot C91.10 CHRONIC LYMPHOCYTIC LEUK OF B- CELL TYPE 10/31/2016 MANNY MEIER Ot I10 ESSENTIAL (PRIMARY) HYPERTENSION 10/31/2016 MANNY MEIER Ot I25.10 ATHSCL HEART DISEASE OF [place] CORONARY 10/31/2016 MANNY MEIER Ot 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 BILATERAL [place] 10/31/2016 MANNY MEIER Ot C91.10 CHRONIC LYMPHOCYTIC LEUK OF B- CELL TYPE 10/31/2016 MANNY MEIER Ot I10 ESSENTIAL (PRIMARY) HYPERTENSION 10/31/2016 MANNY MEIER Ot I25.10 ATHSCL HEART DISEASE OF [place] CORONARY 10/31/2016 MANNY MEIER Ot 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 BILATERAL [place] 10/31/2016 PAIGE BLOCK MD, Ot R05 COUGH 10/31/2016 MANNY MEIER Ot I10 ESSENTIAL (PRIMARY) HYPERTENSION 10/31/2016 PAIGE BLOCK MD, Ot S20.302A UNSP SUPERFICIAL INJURIES OF LEFT FRONT 10/31/2016 PAIGE BLOCK MD, Ot W19.XXXA UNSPECIFIED FALL, INITIAL ENCOUNTER 10/31/2016 PAIGE BLOCK MD, Ot Y99.8 OTHER EXTERNAL CAUSE STATUS 10/31/2016 MONIKA DARBY APRN Ot R06.02 SHORTNESS OF BREATH 10/31/2016 MONIKA DARBY APRN Ot J84.10 PULMONARY FIBROSIS, UNSPECIFIED 10/31/2016 MONIKA DARBY APRN Ot S22.41XA MULTIPLE FRACTURES OF RIBS, RIGHT SIDE, 10/31/2016 MONIKA DARBY APRN Ot X52.XXXA PROLONGED STAY IN WEIGHTLESS ENVIRONMENT 10/31/2016 MONIKA DARBY APRN Ot Y99.8 OTHER EXTERNAL CAUSE STATUS 10/31/2016 LASHAUN ELIAS MD Ot M54.5 LOW BACK PAIN 10/31/2016 WILL MEHTA MD, Ot C91.10 CHRONIC LYMPHOCYTIC LEUK OF B-CELL TYPE 10/31/2016 WILL MEHTA MD, Ot D50.9 IRON DEFICIENCY ANEMIA, UNSPECIFIED 10/31/2016 WILL MEHTA MD, Ot I25.10 ATHSCL HEART DISEASE OF [place] CORONARY 10/31/2016 WILL MEHTA MD, Ot K21.9 GASTRO-ESOPHAGEAL REFLUX DISEASE WITHOUT 10/31/2016 WILL MEHTA MD, Ot Z79.899 OTHER USP (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 THERAPY 10/31/2016 WILL MEHTA MD, Ot Z95.1 PRESENCE OF AORTOCORONARY BYPASS GRAFT 10/31/2016 ELISABETH ARAYA MD Ot R00.2 PALPITATIONS 10/31/2016 KIM-JUS DAVID, MANNY K Ot E78.2 MIXED HYPERLIPIDEMIA 10/31/2016 KIMANILA DAVID, MANNY K Ot I10 ESSENTIAL (PRIMARY) HYPERTENSION 10/31/2016 KIM-JUS DAVID, MANNY K Ot I25.10 ATHSCL HEART DISEASE OF [place] CORONARY 10/31/2016 KIM-JUS PA, MANNY K Ot 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 BILATERAL [place] 11/01/2016 KIM-JUS PA, MANNY K Ot I25.10 ATHSCL HEART DISEASE OF [place] CORONARY 11/01/2016 KIM-JUS DAVID, MANNY K Ot E78.2 MIXED HYPERLIPIDEMIA 11/01/2016 KIMANILA DAVID, MANNY K Ot I10 ESSENTIAL (PRIMARY) HYPERTENSION 11/01/2016 KIM-JUS DAVID, MANNY K Ot I25.10 ATHSCL HEART DISEASE OF [place] CORONARY 11/01/2016 KIM-JUS DAVID, MANNY K Ot 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 BILATERAL [place] 11/05/2016 KIM-JUS DAVID, MANNY K Ot E78.2 MIXED HYPERLIPIDEMIA 11/05/2016 KIM-JUS DAVID, MANNY K Ot I10 ESSENTIAL (PRIMARY) HYPERTENSION 11/05/2016 KIM-JUS DAVID, MANNY K Ot I25.10 ATHSCL HEART DISEASE OF [place] CORONARY 11/05/2016 KIM-JUS DAVID, MANNY K Ot 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 BILATERAL [place] 11/06/2016 KIM-JUS DAVID, MANNY K Ot E78.2 MIXED HYPERLIPIDEMIA 11/06/2016 KIM-JUS DAVID, MANNY K Ot I10 ESSENTIAL (PRIMARY) HYPERTENSION 11/06/2016 KIM-JUS DAVID, MANNY K Ot I25.10 ATHSCL HEART DISEASE OF [place] CORONARY 11/06/2016 KIM-JUS DAVID, MANNY K Ot 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 BILATERAL [place] 11/22/2016 KIM-JUS PA, MANNY K Ot E78.2 MIXED HYPERLIPIDEMIA 11/22/2016 JOAN PA, MANNY K Ot I10 ESSENTIAL (PRIMARY) HYPERTENSION 11/22/2016 KIMANILA DAVID, MANNY K Ot I25.10 ATHSCL HEART DISEASE OF [place] CORONARY 11/22/2016 JULIO-JUS PA, MANNY K Ot 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 BILATERAL [place] 11/22/2016 JULIO-JUS PA, MANNY K Ot E78.2 MIXED HYPERLIPIDEMIA 11/22/2016 JULIO-JUS PA, MANNY K Ot I10 ESSENTIAL (PRIMARY) HYPERTENSION 11/22/2016 JULIO-JUS PA, MANNY K Ot I25.10 ATHSCL HEART DISEASE OF [place] CORONARY 11/22/2016 JULIO-JUS PA, MANNY K Ot 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 BILATERAL [place] 11/29/2016 JOAN PA, MANNY K Ot E78.2 MIXED HYPERLIPIDEMIA 11/29/2016 JULIO-JUS PA, MANNY K Ot I10 ESSENTIAL (PRIMARY) HYPERTENSION 11/29/2016 JULIO-JUS PA, MANNY K Ot I25.10 ATHSCL HEART DISEASE OF [place] CORONARY 11/29/2016 JULIO-JUS PA, MANNY K Ot 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 BILATERAL [place] 11/29/2016 JOAN PA, MANNY K Ot E78.2 MIXED HYPERLIPIDEMIA 11/29/2016 JOAN PA, MANNY K Ot I10 ESSENTIAL (PRIMARY) HYPERTENSION 11/29/2016 JOAN PA, MANNY K Ot I25.10 ATHSCL HEART DISEASE OF [place] CORONARY 11/29/2016 JULIO-JUS PA, MANNY K Ot 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 BILATERAL [place] 12/11/2016 WILL MEHTA MD Ot C91.10 CHRONIC LYMPHOCYTIC LEUK OF B-CELL TYPE 12/11/2016 WILL MEHTA MD Ot D50.9 IRON DEFICIENCY ANEMIA, UNSPECIFIED 12/11/2016 WILL MEHTA MD, Ot I25.10 ATHSCL HEART DISEASE OF [place] CORONARY 12/11/2016 WILL MEHTA MD Ot K21.9 GASTRO-ESOPHAGEAL REFLUX DISEASE WITHOUT 12/11/2016 WILL MEHTA MD, Ot Z79.899 OTHER USP (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 THERAPY 12/11/2016 WILL MEHTA MD Ot Z95.1 PRESENCE OF AORTOCORONARY BYPASS GRAFT 12/12/2016 WILL MEHTA MD, Ot C91.10 CHRONIC LYMPHOCYTIC LEUK OF B-CELL TYPE 12/12/2016 WILL MEHTA MD Ot D50.9 IRON DEFICIENCY ANEMIA, UNSPECIFIED 12/12/2016 WILL MEHTA MD Ot I25.10 ATHSCL HEART DISEASE OF [place] CORONARY 12/12/2016 WILL MEHTA MD Ot K21.9 GASTRO-ESOPHAGEAL REFLUX DISEASE WITHOUT 12/12/2016 WILL MEHTA MD Ot 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 12/12/2016 WILL MEHTA MD Ot Z95.1 PRESENCE OF AORTOCORONARY BYPASS GRAFT 12/13/2016 WILL MEHTA MD, Ot C91.10 CHRONIC LYMPHOCYTIC LEUK OF B-CELL TYPE 12/13/2016 WILL MEHTA MD, Ot D50.9 IRON DEFICIENCY ANEMIA, UNSPECIFIED 12/13/2016 WILL MEHTA MD Ot I25.10 ATHSCL HEART DISEASE OF [place] CORONARY 12/13/2016 WILL MEHTA MD Ot K21.9 GASTRO-ESOPHAGEAL REFLUX DISEASE WITHOUT 12/13/2016 WILL MEHTA MD Ot Z79.899 OTHER USP (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 THERAPY 12/13/2016 WILL MEHTA MD Ot Z95.1 PRESENCE OF AORTOCORONARY BYPASS GRAFT 12/17/2016 WILL MEHTA MD, Ot C91.10 CHRONIC LYMPHOCYTIC LEUK OF B-CELL TYPE 12/17/2016 WILL MEHTA MD Ot D50.9 IRON DEFICIENCY ANEMIA, UNSPECIFIED 12/17/2016 WILL MEHTA MD Ot I25.10 ATHSCL HEART DISEASE OF [place] CORONARY 12/17/2016 WILL MEHTA MD Ot K21.9 GASTRO-ESOPHAGEAL REFLUX DISEASE WITHOUT 12/17/2016 WILL MEHTA MD Ot Z79.899 OTHER USP (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 THERAPY 12/17/2016 WILL MEHTA MD Ot Z95.1 PRESENCE OF AORTOCORONARY BYPASS GRAFT 12/27/2016 ELISABETH ARAYA MD Ot C91.10 CHRONIC LYMPHOCYTIC LEUK OF B-CELL TYPE 12/27/2016 ELISABETH ARAYA MD Ot E66.9 OBESITY, UNSPECIFIED 12/27/2016 ELISABETH ARAYA MD Ot E78.5 HYPERLIPIDEMIA, UNSPECIFIED 12/27/2016 ELISABETH ARAYA MD Ot I10 ESSENTIAL (PRIMARY) HYPERTENSION 12/27/2016 ELISABETH ARAYA MD, Ot I25.10 ATHSCL HEART DISEASE OF [place] CORONARY 12/27/2016 ELISABETH ARAYA MD, Ot I35.0 NONRHEUMATIC AORTIC (VALVE) STENOSIS 12/27/2016 ELISABETH ARAYA MD, Ot R07.89 OTHER CHEST PAIN 12/27/2016 ELISABETH ARAYA MD, Ot R94.39 ABNORMAL RESULT OF OTHER CARDIOVASCULAR 12/27/2016 ELISABETH ARAYA MD, Ot Z68.39 BODY MASS INDEX (BMI) 39.0-39.9, ADULT 12/27/2016 ELISABETH ARAYA MD, Ot 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 12/27/2016 ELISABETH ARAYA MD, Ot Z95.1 PRESENCE OF AORTOCORONARY BYPASS GRAFT 12/27/2016 ELISABETH ARAYA MD, Ot Z95.5 PRESENCE OF CORONARY ANGIOPLASTY IMPLANT Procedures Results Test Result Range Complete blood count (CBC) with automated white blood cell (WBC) differential - 06/30/16 20:47 Blood leukocytes automated count (number/volume) 24.9 10*3/ uL 4.3-11.0 Blood erythrocytes automated count (number/volume) 3.43 10*6 /uL 4.35-5.85 Venous blood hemoglobin measurement (mass/volume) 12.1 g/dL 11.5-16.0 Blood hematocrit (volume fraction) 36 % 35-52 Automated erythrocyte mean corpuscular volume 105 [foz_us] 80-99 Automated erythrocyte mean corpuscular hemoglobin (mass per erythrocyte) 35 pg 25-34 Automated erythrocyte mean corpuscular hemoglobin concentration measurement ( mass/volume) 34 g/dL 32-36 Automated erythrocyte distribution width ratio 15.4 % 10.0-14.5 Automated blood platelet count (count/volume) 147 10*3/uL 130-400 Automated blood platelet mean volume measurement 11.7 [foz_ us] 7.4-10.4 Automated blood neutrophils/100 leukocytes 18 % 42-75 Automated blood lymphocytes/100 leukocytes 78 % 12-44 Blood monocytes/100 leukocytes 4 % 0-12 Automated blood eosinophils/100 leukocytes 0 % 0-10 Automated blood basophils/100 leukocytes 0 % 0-10 Blood neutrophils automated count (number/volume) 4.4 10*3 1.8-7.8 Blood lymphocytes automated count (number/volume) 19.5 10*3 1.0-4.0 Blood monocytes automated count (number/volume) 1.0 10*3 0.0-1.0 Automated eosinophil count 0.1 10*3/uL 0.0-0.3 Automated blood basophil count (count/volume) 0.0 10*3/uL 0.0-0.1 PT panel in platelet poor plasma by coagulation assay - 06/30/16 20:47 Prothrombin time (PT) in platelet poor plasma by coagulation assay 12.4 s 12.2-14.7 INR in platelet poor plasma or blood by coagulation assay 0.9 0.8-1.4 Activated partial thromboplastin time (aPTT) in platelet poor plasma bycoagulation assay - 06/30/16 20:47 Activated partial thromboplastin time (aPTT) in platelet poor plasma bycoagulation assay 22 s 24-35 Comprehensive metabolic panel - 06/30/16 20:47 Serum or plasma sodium measurement (moles/volume) 139 mmol/ L 135-145 Serum or plasma potassium measurement (moles/volume) 4.0 mmol/L 3.6-5.0 Serum or plasma chloride measurement (moles/volume) 106 mmol /L 98-107 Carbon dioxide 23 mmol/L 21-32 Serum or plasma anion gap determination (moles/volume) 10 mmol/L 5-14 Serum or plasma urea nitrogen measurement (mass/volume) 23 mg/dL 7-18 Serum or plasma creatinine measurement (mass/volume) 0.90 mg /dL 0.60-1.30 Serum or plasma urea nitrogen/creatinine mass ratio 26 NRG Serum or plasma creatinine measurement with calculation of estimated glomerular filtration rate 60 NRG Serum or plasma glucose measurement (mass/volume) 109 mg/dL 70-105 Serum or plasma calcium measurement (mass/volume) 9.0 mg/dL 8.5-10.1 Serum or plasma total bilirubin measurement (mass/volume) 0.8 mg/dL 0.1-1.0 Serum or plasma alkaline phosphatase measurement (enzymatic activity/volume) 85 U/L 40-136 Serum or plasma aspartate aminotransferase measurement (enzymatic activity/ volume) 15 U/L 5-34 Serum or plasma alanine aminotransferase measurement (enzymatic activity/volume ) 15 U/L 0-55 Serum or plasma protein measurement (mass/volume) 6.1 g/dL 6.4-8.2 Serum or plasma albumin measurement (mass/volume) 4.1 g/dL 3.2-4.5 Magnesium - 06/30/16 20:47 Magnesium 2.1 mg/dL 1.8-2.4 Serum or plasma creatine kinase measurement (enzymatic activity/volume) - 06/30 20:47 Serum or plasma creatine kinase measurement (enzymatic activity/volume) 34 U/L 29-168 Serum or plasma creatine kinase MB measurement (enzymatic activity/volume) - 20:47 Serum or plasma creatine kinase MB measurement (enzymatic activity/volume) 0.8 ng/mL <6.6 Serum or plasma troponin i.cardiac measurement (mass/volume) - 06/30/16 20:47 Serum or plasma troponin i.cardiac measurement (mass/volume) < ng/mL <0.30 Blood manual differential performed detection - 06/30/16 20:47 Manual blood segmented neutrophils/100 leukocytes 16 % NRG Manual blood lymphocytes/100 leukocytes 84 % NRG Blood erythrocyte morphology finding identification NORMAL NRG Serum or plasma amylase measurement (enzymatic activity/volume) - 06/30/16 20: 47 Serum or plasma amylase measurement (enzymatic activity/volume) 41 U/L 25-125 Lipase - 06/30/16 20:47 Lipase 14 U/L 8-78 Serum or plasma lithium measurement (moles/volume) - 06/30/16 20:47 BNP level 164.8 pg/mL <100.0 Serum or plasma thyrotropin measurement by detection limit <=0.05 miu/l (units/ volume) - 06/30/16 20:47 Serum or plasma thyrotropin measurement by detection limit <=0.05 miu/l (units/ volume) 0.98 u[iU]/mL 0.35-4.94 Methicillin resistant Staphylococcus aureus (MRSA) screening culture - 23:35 Methicillin resistant Staphylococcus aureus (MRSA) screening culture NEG NRG Complete blood count (CBC) with automated white blood cell (WBC) differential - 07/01/16 04:35 Blood leukocytes automated count (number/volume) 22.2 10*3/ uL 4.3-11.0 Blood erythrocytes automated count (number/volume) 3.26 10*6 /uL 4.35-5.85 Venous blood hemoglobin measurement (mass/volume) 11.2 g/dL 11.5-16.0 Blood hematocrit (volume fraction) 35 % 35-52 Automated erythrocyte mean corpuscular volume 108 [foz_us] 80-99 Automated erythrocyte mean corpuscular hemoglobin (mass per erythrocyte) 34 pg 25-34 Automated erythrocyte mean corpuscular hemoglobin concentration measurement ( mass/volume) 32 g/dL 32-36 Automated erythrocyte distribution width ratio 15.3 % 10.0-14.5 Automated blood platelet count (count/volume) 129 10*3/uL 130-400 Automated blood platelet mean volume measurement 11.8 [foz_ us] 7.4-10.4 Automated blood neutrophils/100 leukocytes 17 % 42-75 Automated blood lymphocytes/100 leukocytes 81 % 12-44 Blood monocytes/100 leukocytes 2 % 0-12 Automated blood eosinophils/100 leukocytes 0 % 0-10 Automated blood basophils/100 leukocytes 0 % 0-10 Blood neutrophils automated count (number/volume) 3.8 10*3 1.8-7.8 Blood lymphocytes automated count (number/volume) 18.0 10*3 1.0-4.0 Blood monocytes automated count (number/volume) 0.4 10*3 0.0-1.0 Automated eosinophil count 0.1 10*3/uL 0.0-0.3 Automated blood basophil count (count/volume) 0.0 10*3/uL 0.0-0.1 Comprehensive metabolic panel - 07/01/16 04:35 Serum or plasma sodium measurement (moles/volume) 142 mmol/ L 135-145 Serum or plasma potassium measurement (moles/volume) 4.1 mmol/L 3.6-5.0 Serum or plasma chloride measurement (moles/volume) 108 mmol /L 98-107 Carbon dioxide 24 mmol/L 21-32 Serum or plasma anion gap determination (moles/volume) 10 mmol/L 5-14 Serum or plasma urea nitrogen measurement (mass/volume) 21 mg/dL 7-18 Serum or plasma creatinine measurement (mass/volume) 0.80 mg /dL 0.60-1.30 Serum or plasma urea nitrogen/creatinine mass ratio 26 NRG Serum or plasma creatinine measurement with calculation of estimated glomerular filtration rate > NRG Serum or plasma glucose measurement (mass/volume) 116 mg/dL 70-105 Serum or plasma calcium measurement (mass/volume) 9.0 mg/dL 8.5-10.1 Serum or plasma total bilirubin measurement (mass/volume) 0.9 mg/dL 0.1-1.0 Serum or plasma alkaline phosphatase measurement (enzymatic activity/volume) 69 U/L 40-136 Serum or plasma aspartate aminotransferase measurement (enzymatic activity/ volume) 15 U/L 5-34 Serum or plasma alanine aminotransferase measurement (enzymatic activity/volume ) 14 U/L 0-55 Serum or plasma protein measurement (mass/volume) 5.4 g/dL 6.4-8.2 Serum or plasma albumin measurement (mass/volume) 3.7 g/dL 3.2-4.5 Serum or plasma creatine kinase measurement (enzymatic activity/volume) - 07/01 04:35 Serum or plasma creatine kinase measurement (enzymatic activity/volume) 26 U/L 29-168 Serum or plasma troponin i.cardiac measurement (mass/volume) - 07/01/16 04:35 Serum or plasma troponin i.cardiac measurement (mass/volume) < ng/mL <0.30 Myoglobin, serum - 07/01/16 04:35 Myoglobin, serum 33.6 ng/mL 10.0-92.0 Lipid 1996 panel - 07/01/16 04:35 Serum or plasma triglyceride measurement (mass/volume) 121 mg/dL <150 Serum or plasma cholesterol measurement (mass/volume) 191 mg /dL < 200 Serum or plasma cholesterol in HDL measurement (mass/volume) 40 mg/dL 40-60 Cholesterol in LDL [mass/volume] in serum or plasma by direct assay 129 mg/dL 1-129 Serum or plasma cholesterol in VLDL measurement (mass/volume) 24 mg/dL 5-40 Complete blood count (CBC) with automated white blood cell (WBC) differential - 07/03/16 00:33 Blood leukocytes automated count (number/volume) 27.2 10*3/ uL 4.3-11.0 Blood erythrocytes automated count (number/volume) 3.37 10*6 /uL 4.35-5.85 Venous blood hemoglobin measurement (mass/volume) 11.6 g/dL 11.5-16.0 Blood hematocrit (volume fraction) 36 % 35-52 Automated erythrocyte mean corpuscular volume 108 [foz_us] 80-99 Automated erythrocyte mean corpuscular hemoglobin (mass per erythrocyte) 34 pg 25-34 Automated erythrocyte mean corpuscular hemoglobin concentration measurement ( mass/volume) 32 g/dL 32-36 Automated erythrocyte distribution width ratio 15.5 % 10.0-14.5 Automated blood platelet count (count/volume) 150 10*3/uL 130-400 Automated blood platelet mean volume measurement 11.7 [foz_ us] 7.4-10.4 Automated blood neutrophils/100 leukocytes 15 % 42-75 Automated blood lymphocytes/100 leukocytes 83 % 12-44 Blood monocytes/100 leukocytes 2 % 0-12 Automated blood eosinophils/100 leukocytes 0 % 0-10 Automated blood basophils/100 leukocytes 0 % 0-10 Blood neutrophils automated count (number/volume) 4.1 10*3 1.8-7.8 Blood lymphocytes automated count (number/volume) 22.6 10*3 1.0-4.0 Blood monocytes automated count (number/volume) 0.5 10*3 0.0-1.0 Automated eosinophil count 0.1 10*3/uL 0.0-0.3 Automated blood basophil count (count/volume) 0.1 10*3/uL 0.0-0.1 PT panel in platelet poor plasma by coagulation assay - 07/03/16 00:33 Prothrombin time (PT) in platelet poor plasma by coagulation assay 12.7 s 12.2-14.7 INR in platelet poor plasma or blood by coagulation assay 1.0 0.8-1.4 Activated partial thromboplastin time (aPTT) in platelet poor plasma bycoagulation assay - 07/03/16 00:33 Activated partial thromboplastin time (aPTT) in platelet poor plasma bycoagulation assay 24 s 24-35 Blood manual differential performed detection - 07/03/16 00:33 Blood monocytes/100 leukocytes 0 % NRG Manual blood segmented neutrophils/100 leukocytes 20 % NRG Blood band neutrophils/100 leukocytes 0 % NRG Manual blood lymphocytes/100 leukocytes 72 % NRG Manual eosinophils/100 leukocytes in nose 0 % NRG Manual blood basophils/100 leukocytes 1 % NRG Blood lymphocytes variant/100 leukocytes 7 % NRG Blood anisocytosis detection by light microscopy SLIGHT NRG Blood macrocytes detection by light microscopy SLIGHT NRG Comprehensive metabolic panel - 07/03/16 00:33 Serum or plasma sodium measurement (moles/volume) 140 mmol/ L 135-145 Serum or plasma potassium measurement (moles/volume) 4.8 mmol/L 3.6-5.0 Serum or plasma chloride measurement (moles/volume) 107 mmol /L 98-107 Carbon dioxide 21 mmol/L 21-32 Serum or plasma anion gap determination (moles/volume) 12 mmol/L 5-14 Serum or plasma urea nitrogen measurement (mass/volume) 31 mg/dL 7-18 Serum or plasma creatinine measurement (mass/volume) 1.01 mg /dL 0.60-1.30 Serum or plasma urea nitrogen/creatinine mass ratio 31 NRG Serum or plasma creatinine measurement with calculation of estimated glomerular filtration rate 52 NRG Serum or plasma glucose measurement (mass/volume) 152 mg/dL 70-105 Serum or plasma calcium measurement (mass/volume) 9.2 mg/dL 8.5-10.1 Serum or plasma total bilirubin measurement (mass/volume) 0.8 mg/dL 0.1-1.0 Serum or plasma alkaline phosphatase measurement (enzymatic activity/volume) 72 U/L 40-136 Serum or plasma aspartate aminotransferase measurement (enzymatic activity/ volume) 23 U/L 5-34 Serum or plasma alanine aminotransferase measurement (enzymatic activity/volume ) 24 U/L 0-55 Serum or plasma protein measurement (mass/volume) 5.9 g/dL 6.4-8.2 Serum or plasma albumin measurement (mass/volume) 4.1 g/dL 3.2-4.5 Serum or plasma creatine kinase measurement (enzymatic activity/volume) - 07/03 00:33 Serum or plasma creatine kinase measurement (enzymatic activity/volume) 29 U/L 29-168 Serum or plasma creatine kinase MB measurement (enzymatic activity/volume) - 00:33 Serum or plasma creatine kinase MB measurement (enzymatic activity/volume) 0.7 ng/mL <6.6 Serum or plasma troponin i.cardiac measurement (mass/volume) - 07/03/16 00:33 Serum or plasma troponin i.cardiac measurement (mass/volume) < ng/mL <0.30 Serum or plasma amylase measurement (enzymatic activity/volume) - 07/03/16 00: 33 Serum or plasma amylase measurement (enzymatic activity/volume) 40 U/L 25-125 Lipase - 07/03/16 00:33 Lipase 12 U/L 8-78 Serum or plasma lithium measurement (moles/volume) - 07/03/16 00:33 BNP level 86.5 pg/mL <100.0 Complete blood count (CBC) with automated white blood cell (WBC) differential - 07/03/16 05:59 Blood leukocytes automated count (number/volume) 26.4 10*3/ uL 4.3-11.0 Blood erythrocytes automated count (number/volume) 3.20 10*6 /uL 4.35-5.85 Venous blood hemoglobin measurement (mass/volume) 11.1 g/dL 11.5-16.0 Blood hematocrit (volume fraction) 35 % 35-52 Automated erythrocyte mean corpuscular volume 109 [foz_us] 80-99 Automated erythrocyte mean corpuscular hemoglobin (mass per erythrocyte) 35 pg 25-34 Automated erythrocyte mean corpuscular hemoglobin concentration measurement ( mass/volume) 32 g/dL 32-36 Automated erythrocyte distribution width ratio 15.6 % 10.0-14.5 Automated blood platelet count (count/volume) 142 10*3/uL 130-400 Automated blood platelet mean volume measurement 11.5 [foz_ us] 7.4-10.4 Automated blood neutrophils/100 leukocytes 14 % 42-75 Automated blood lymphocytes/100 leukocytes 83 % 12-44 Blood monocytes/100 leukocytes 2 % 0-12 Automated blood eosinophils/100 leukocytes 0 % 0-10 Automated blood basophils/100 leukocytes 0 % 0-10 Blood neutrophils automated count (number/volume) 3.8 10*3 1.8-7.8 Blood lymphocytes automated count (number/volume) 22.1 10*3 1.0-4.0 Blood monocytes automated count (number/volume) 0.4 10*3 0.0-1.0 Automated eosinophil count 0.1 10*3/uL 0.0-0.3 Automated blood basophil count (count/volume) 0.1 10*3/uL 0.0-0.1 Comprehensive metabolic panel - 07/03/16 05:59 Serum or plasma sodium measurement (moles/volume) 141 mmol/ L 135-145 Serum or plasma potassium measurement (moles/volume) 4.5 mmol/L 3.6-5.0 Serum or plasma chloride measurement (moles/volume) 107 mmol /L 98-107 Carbon dioxide 25 mmol/L 21-32 Serum or plasma anion gap determination (moles/volume) 9 mmol/L 5-14 Serum or plasma urea nitrogen measurement (mass/volume) 30 mg/dL 7-18 Serum or plasma creatinine measurement (mass/volume) 0.86 mg /dL 0.60-1.30 Serum or plasma urea nitrogen/creatinine mass ratio 35 NRG Serum or plasma creatinine measurement with calculation of estimated glomerular filtration rate > NRG Serum or plasma glucose measurement (mass/volume) 120 mg/dL 70-105 Serum or plasma calcium measurement (mass/volume) 9.2 mg/dL 8.5-10.1 Serum or plasma total bilirubin measurement (mass/volume) 1.0 mg/dL 0.1-1.0 Serum or plasma alkaline phosphatase measurement (enzymatic activity/volume) 65 U/L 40-136 Serum or plasma aspartate aminotransferase measurement (enzymatic activity/ volume) 22 U/L 5-34 Serum or plasma alanine aminotransferase measurement (enzymatic activity/volume ) 25 U/L 0-55 Serum or plasma protein measurement (mass/volume) 5.6 g/dL 6.4-8.2 Serum or plasma albumin measurement (mass/volume) 3.9 g/dL 3.2-4.5 Serum or plasma troponin i.cardiac measurement (mass/volume) - 07/03/16 05:59 Serum or plasma troponin i.cardiac measurement (mass/volume) < ng/mL <0.30 Complete urinalysis with reflex to culture - 10/10/16 09:30 Urine color determination YELLOW NRG Urine clarity determination CLEAR NRG Urine pH measurement by test strip 6.5 5 -9 Specific gravity of urine by test strip 1.010 1.016-1.022 Urine protein assay by test strip, semi-quantitative NEGATIVE NEGATIVE Urine glucose detection by automated test strip NEGATIVE NEGATIVE Erythrocytes detection in urine sediment by light microscopy NEGATIVE NEGATIVE Urine ketones detection by automated test strip NEGATIVE NEGATIVE Urine nitrite detection by test strip NEGATIVE NEGATIVE Urine total bilirubin detection by test strip NEGATIVE NEGATIVE Urine urobilinogen measurement by automated test strip (mass/volume) NORMAL NORMAL Urine leukocyte esterase detection by dipstick 1+ NEGATIVE Automated urine sediment erythrocyte count by microscopy (number/high power field) NONE NRG Automated urine sediment leukocyte count by microscopy (number/high power field ) [HPF] NRG Bacteria detection in urine sediment by light microscopy TRACE NRG Squamous epithelial cells detection in urine sediment by light microscopy 0-2 NRG Crystals detection in urine sediment by light microscopy NONE NRG Casts detection in urine sediment by light microscopy NONE NRG Mucus detection in urine sediment by light microscopy NEGATIVE NRG Complete urinalysis with reflex to culture NO NRG Complete blood count (CBC) with automated white blood cell (WBC) differential - 10/10/16 09:35 Blood leukocytes automated count (number/volume) 18.1 10*3/ uL 4.3-11.0 Blood erythrocytes automated count (number/volume) 3.44 10*6 /uL 4.35-5.85 Venous blood hemoglobin measurement (mass/volume) 12.3 g/dL 11.5-16.0 Blood hematocrit (volume fraction) 38 % 35-52 Automated erythrocyte mean corpuscular volume 111 [foz_us] 80-99 Automated erythrocyte mean corpuscular hemoglobin (mass per erythrocyte) 36 pg 25-34 Automated erythrocyte mean corpuscular hemoglobin concentration measurement ( mass/volume) 32 g/dL 32-36 Automated erythrocyte distribution width ratio 14.0 % 10.0-14.5 Automated blood platelet count (count/volume) 125 10*3/uL 130-400 Automated blood platelet mean volume measurement 11.6 [foz_ us] 7.4-10.4 Automated blood neutrophils/100 leukocytes 14 % 42-75 Automated blood lymphocytes/100 leukocytes 84 % 12-44 Blood monocytes/100 leukocytes 2 % 0-12 Automated blood eosinophils/100 leukocytes 0 % 0-10 Automated blood basophils/100 leukocytes 0 % 0-10 Blood neutrophils automated count (number/volume) 2.5 10*3 1.8-7.8 Blood lymphocytes automated count (number/volume) 15.2 10*3 1.0-4.0 Blood monocytes automated count (number/volume) 0.4 10*3 0.0-1.0 Automated eosinophil count 0.1 10*3/uL 0.0-0.3 Automated blood basophil count (count/volume) 0.0 10*3/uL 0.0-0.1 PT panel in platelet poor plasma by coagulation assay - 10/10/16 09:35 Prothrombin time (PT) in platelet poor plasma by coagulation assay 12.4 s 12.2-14.7 INR in platelet poor plasma or blood by coagulation assay 1.0 0.8-1.4 Activated partial thromboplastin time (aPTT) in platelet poor plasma bycoagulation assay - 10/10/16 09:35 Activated partial thromboplastin time (aPTT) in platelet poor plasma bycoagulation assay 23 s 24-35 Fibrin D-dimer FEU measurement in platelet poor plasma (mass/volume) - 09:35 Fibrin D-dimer FEU measurement in platelet poor plasma (mass/volume) 1.10 ug/mL 0.00-0.49 Comprehensive metabolic panel - 10/10/16 09:35 Serum or plasma sodium measurement (moles/volume) 142 mmol/ L 135-145 Serum or plasma potassium measurement (moles/volume) 4.1 mmol/L 3.6-5.0 Serum or plasma chloride measurement (moles/volume) 105 mmol /L 98-107 Carbon dioxide 26 mmol/L 21-32 Serum or plasma anion gap determination (moles/volume) 11 mmol/L 5-14 Serum or plasma urea nitrogen measurement (mass/volume) 21 mg/dL 7-18 Serum or plasma creatinine measurement (mass/volume) 0.86 mg /dL 0.60-1.30 Serum or plasma urea nitrogen/creatinine mass ratio 24 NRG Serum or plasma creatinine measurement with calculation of estimated glomerular filtration rate > NRG Serum or plasma glucose measurement (mass/volume) 118 mg/dL 70-105 Serum or plasma calcium measurement (mass/volume) 9.2 mg/dL 8.5-10.1 Serum or plasma total bilirubin measurement (mass/volume) 0.8 mg/dL 0.1-1.0 Serum or plasma alkaline phosphatase measurement (enzymatic activity/volume) 74 U/L 40-136 Serum or plasma aspartate aminotransferase measurement (enzymatic activity/ volume) 23 U/L 5-34 Serum or plasma alanine aminotransferase measurement (enzymatic activity/volume ) 24 U/L 0-55 Serum or plasma protein measurement (mass/volume) 5.9 g/dL 6.4-8.2 Serum or plasma albumin measurement (mass/volume) 4.1 g/dL 3.2-4.5 Magnesium - 10/10/16 09:35 Magnesium 2.2 mg/dL 1.8-2.4 Serum or plasma troponin i.cardiac measurement (mass/volume) - 10/10/16 09:35 Serum or plasma troponin i.cardiac measurement (mass/volume) < ng/mL <0.30 Myoglobin, serum - 10/10/16 09:35 Myoglobin, serum 33.8 ng/mL 10.0-92.0 Serum or plasma lithium measurement (moles/volume) - 10/10/16 09:35 BNP level 189.5 pg/mL <100.0 Blood manual differential performed detection - 10/10/16 09:35 Blood monocytes/100 leukocytes 3 % NRG Manual blood segmented neutrophils/100 leukocytes 15 % NRG Blood band neutrophils/100 leukocytes 0 % NRG Manual blood lymphocytes/100 leukocytes 80 % NRG Manual eosinophils/100 leukocytes in nose 0 % NRG Manual blood basophils/100 leukocytes 0 % NRG Blood lymphocytes variant/100 leukocytes 2 % NRG Blood anisocytosis detection by light microscopy SLIGHT NRG Blood macrocytes detection by light microscopy SLIGHT NRG Methicillin resistant Staphylococcus aureus (MRSA) screening culture - 07:18 Methicillin resistant Staphylococcus aureus (MRSA) screening culture NEG NRG Complete urinalysis with reflex to culture - 11/28/16 07:22 Urine color determination YELLOW NRG Urine clarity determination SLIGHTLY CLOUDY NRG Urine pH measurement by test strip 6 5- 9 Specific gravity of urine by test strip 1.015 1.016-1.022 Urine protein assay by test strip, semi-quantitative 2+ NEGATIVE Urine glucose detection by automated test strip NEGATIVE NEGATIVE Erythrocytes detection in urine sediment by light microscopy 2+ NEGATIVE Urine ketones detection by automated test strip NEGATIVE NEGATIVE Urine nitrite detection by test strip NEGATIVE NEGATIVE Urine total bilirubin detection by test strip NEGATIVE NEGATIVE Urine urobilinogen measurement by automated test strip (mass/volume) NORMAL NORMAL Urine leukocyte esterase detection by dipstick 3+ NEGATIVE Automated urine sediment erythrocyte count by microscopy (number/high power field) [HPF] NRG Automated urine sediment leukocyte count by microscopy (number/high power field ) [HPF] NRG Bacteria detection in urine sediment by light microscopy MODERATE NRG Squamous epithelial cells detection in urine sediment by light microscopy 5-10 NRG Crystals detection in urine sediment by light microscopy NONE NRG Casts detection in urine sediment by light microscopy NONE NRG Mucus detection in urine sediment by light microscopy NEGATIVE NRG Complete urinalysis with reflex to culture YES NRG Bacterial urine culture - 11/28/16 07:22 Bacterial urine culture [id number] NRG COLONY COUNT >100,000/ML NRG FTX;REPORTABLE SENSITIVITY REPORTED 11/29/16 17:35 NRG URINE CULTURE RESULTS PLUS NRG Bacterial susceptibility panel - 11/28/16 07:22 Gentamicin susceptibility test by minimum inhibitory concentration <= NRG Trimethoprim/sulfamethoxazole susceptibility test by minimum inhibitoryconcentration <= NRG Ampicillin susceptibility test by minimum inhibitory concentration R NRG Tobramycin susceptibility test by minimum inhibitory concentration <= NRG Cefazolin susceptibility test by minimum inhibitory concentration <= NRG Ceftriaxone susceptibility test by minimum inhibitory concentration <= NRG Ampicillin/sulbactam susceptibility test by minimum inhibitory concentration 4 NRG Piperacillin/tazobactam susceptibility test by minimum inhibitory concentration <= NRG Ciprofloxacin susceptibility test by minimum inhibitory concentration <= NRG Meropenem susceptibility test by minimum inhibitory concentration <= NRG Nitrofurantoin susceptibility test by minimum inhibitory concentration <= NRG Aztreonam susceptibility test by minimum inhibitory concentration <= NRG Extended spectrum beta lactamase (ESBL) producing bacteria susceptibility test by minimum inhibitory concentration - NRG Automated blood complete blood count (hemogram) panel - 11/28/16 07:28 Blood leukocytes automated count (number/volume) 19.8 10*3/ uL 4.3-11.0 Blood erythrocytes automated count (number/volume) 3.47 10*6 /uL 4.35-5.85 Venous blood hemoglobin measurement (mass/volume) 12.7 g/dL 11.5-16.0 Blood hematocrit (volume fraction) 37 % 35-52 Automated erythrocyte mean corpuscular volume 107 [foz_us] 80-99 Automated erythrocyte mean corpuscular hemoglobin (mass per erythrocyte) 37 pg 25-34 Automated erythrocyte mean corpuscular hemoglobin concentration measurement ( mass/volume) 34 g/dL 32-36 Automated erythrocyte distribution width ratio 14.3 % 10.0-14.5 Automated blood platelet count (count/volume) 134 10*3/uL 130-400 Automated blood platelet mean volume measurement 11.8 [foz_ us] 7.4-10.4 PT panel in platelet poor plasma by coagulation assay - 11/28/16 07:28 Prothrombin time (PT) in platelet poor plasma by coagulation assay 12.5 s 12.2-14.7 INR in platelet poor plasma or blood by coagulation assay 1.0 0.8-1.4 Activated partial thromboplastin time (aPTT) in platelet poor plasma bycoagulation assay - 11/28/16 07:28 Activated partial thromboplastin time (aPTT) in platelet poor plasma bycoagulation assay 23 s 24-35 Comprehensive metabolic panel - 11/28/16 07:28 Serum or plasma sodium measurement (moles/volume) 141 mmol/ L 135-145 Serum or plasma potassium measurement (moles/volume) 4.3 mmol/L 3.6-5.0 Serum or plasma chloride measurement (moles/volume) 106 mmol /L 98-107 Carbon dioxide 25 mmol/L 21-32 Serum or plasma anion gap determination (moles/volume) 10 mmol/L 5-14 Serum or plasma urea nitrogen measurement (mass/volume) 22 mg/dL 7-18 Serum or plasma creatinine measurement (mass/volume) 1.00 mg /dL 0.60-1.30 Serum or plasma urea nitrogen/creatinine mass ratio 22 NRG Serum or plasma creatinine measurement with calculation of estimated glomerular filtration rate 53 NRG Serum or plasma glucose measurement (mass/volume) 120 mg/dL 70-105 Serum or plasma calcium measurement (mass/volume) 9.0 mg/dL 8.5-10.1 Serum or plasma total bilirubin measurement (mass/volume) 1.0 mg/dL 0.1-1.0 Serum or plasma alkaline phosphatase measurement (enzymatic activity/volume) 76 U/L 40-136 Serum or plasma aspartate aminotransferase measurement (enzymatic activity/ volume) 24 U/L 5-34 Serum or plasma alanine aminotransferase measurement (enzymatic activity/volume ) 27 U/L 0-55 Serum or plasma protein measurement (mass/volume) 6.3 g/dL 6.4-8.2 Serum or plasma albumin measurement (mass/volume) 4.3 g/dL 3.2-4.5 Lipid 1996 panel - 11/28/16 07:28 Serum or plasma triglyceride measurement (mass/volume) 158 mg/dL <150 Serum or plasma cholesterol measurement (mass/volume) 211 mg /dL < 200 Serum or plasma cholesterol in HDL measurement (mass/volume) 44 mg/dL 40-60 Cholesterol in LDL [mass/volume] in serum or plasma by direct assay 130 mg/dL 1-129 Serum or plasma cholesterol in VLDL measurement (mass/volume) 32 mg/dL 5-40 Encounters ACCT No. Visit Date/Time Discharge Status Pt. Type Provider Facility Loc./Unit Complaint [id number] 09/12/2016 13:06:00 2016 00:01:00 DIS Outpatient JANINE LAU, [facility] ONC LABS [id number] 11/28/2016 07:00:00 2016 14:00:00 DIS Outpatient ELISABETH ARAYA MD [facility] CATH ABN STRESS TEST [id number] 10/10/2016 08:57:00 2015 12:58:00 DIS Emergency ALEXANDRA ALEXANDRA MD [facility] ER SOA/IRR HEART RATE [id number] 07/03/2016 09:15:00 2015 00:01:00 DIS Outpatient ELISABETH ARAYA MD [facility] CARD PALPITATIONS [id number] 06/06/2016 12:50:00 2015 16:16:00 DIS Outpatient WILL MEHTA MD [facility] ONC LABS [id number] 07/03/2016 02:40:00 2015 08:18:00 DIS Inpatient ELISABETH ARAYA MD [facility] ICU PSVT [id number] 06/30/2016 21:45:00 2015 10:10:00 DIS Inpatient UMAIR LAU, PAIGE Forte [facility] ICU CHEST PAIN, NEW ONSET SVT [id number] 06/29/2016 07:00:00 2015 08:04:00 DIS Outpatient LASHAUN ELIAS MD [facility] CARD SPONDYLOSIS [id number] 04/09/2016 14:36:00 2015 00:01:00 DIS Outpatient WILL MEHTA MD [facility] ONC LABS [id number] 12/13/2015 14:18:00 2015 00:01:00 DIS Outpatient WILL MEHTA MD [facility] ONC LABS [id number] 11/07/2015 06:37:00 2014 13:45:00 DIS Outpatient ELISABETH ARAYA MD [facility] CATH CAD [id number] 10/12/2015 09:38:00 2014 23:59:59 CLS Outpatient MANNY MEIER [facility] LAB CAD,CLL,CAROTID ARTERY STENOSIS,HTN [id number] 08/23/2015 12:50:00 2014 00:01:00 DIS Outpatient WILL MEHTA MD [facility] ONC LABS [id number] 05/31/2015 14:30:00 2014 00:01:00 DIS Outpatient WILL MEHTA MD [facility] ONC LABS [id number] 05/13/2015 12:44:00 2014 23:59:59 CLS Outpatient KRISSY DOAN [facility] ONC [id number] 03/08/2015 14:40:00 2014 00:01:00 DIS Outpatient WILL MEHTA MD [facility] ONC LABS [id number] 08/31/2014 13:25:00 2014 00:01:00 DIS Outpatient WILL MEHTA MD [facility] ONC LABS [id number] 11/05/2014 21:45:00 2013 10:00:00 DIS Inpatient PAIGE BLOCK MD [facility] 4TH BRONCHITIS,LEUKOCYTOSIS [id number] 06/08/2014 13:44:00 2013 00:01:00 DIS Outpatient WILL MEHTA MD [facility] ONC LABS [id number] 06/16/2014 15:24:00 2013 23:59:59 CLS Outpatient PAIGE BLOCK MD [facility] RAD PAIN, MED SHAFT W/OLD FX [id number] 03/03/2014 13:40:00 2013 00:01:00 DIS Outpatient WILL MEHTA MD [facility] ONC LABS [id number] 01/08/2014 07:38:00 2013 14:32:00 DIS Outpatient TINO KAPOOR DO [facility] SDC GALLSTONES [id number] 01/07/2014 08:03:00 2013 23:59:59 CLS Outpatient TINO KAPOOR DO [facility] PREOP GALLSTONES [id number] 12/31/2013 16:01:00 2013 23:59:59 CLS Outpatient PAIGE BLOCK MD [facility] RAD R UQ PAIN [id number] 09/09/2013 13:40:00 2013 00:01:00 DIS Outpatient WILL MEHTA MD [facility] ONC LABS [id number] 09/27/2013 15:39:00 2012 17:30:00 DIS Emergency RUFUS LAU, AWA Delgado [facility] ER FALL; R ARM PAIN [id number] 08/17/2013 10:49:00 2012 23:59:59 CLS Outpatient PAIGE BLOCK MD [facility] RAD SCREENING [id number] 06/24/2013 13:13:00 2012 00:01:00 DIS Outpatient WILL MEHTA MD [facility] ONC LABS [id number] 05/06/2013 12:53:00 2012 23:59:59 CLS Outpatient PAIGE BLOCK MD [facility] LAB [id number] 03/23/2013 04:35:00 2012 23:59:59 CLS Outpatient PAIGE BLOCK MD [facility] RAD PAIN IN L BACK [id number] 12/12/2016 13:03:00 ACT Outpatient FRANCHESKA MEHTA MD [facility] ONC LABS [id number] 10/31/2016 12:22:00 ACT Outpatient MANNY VALENZUELA [facility] CARD CAD,PETRONA,HTN [id number] 10/25/2016 08:43:00 ACT Outpatient MANNY VALENZUELA [facility] CARD CAD,PETRONA,HTN [id number] 10/02/2016 10:00:00 PEN Preadmit QUIANA LAU, ELISABETH Wallace [facility] CARD PALPITATIONS [id number] 06/26/2016 12:47:00 ACT Outpatient LASHAUN ELIAS MD [facility] RAD LOW BACK PAIN [id number] 05/30/2016 11:42:00 ACT Outpatient MONIKA DARBY [employer] [facility] RT SOB [id number] 05/23/2016 12:34:00 ACT Outpatient MONIKA DARBY [employer] ANALY[employer] [facility] RAD SOB [id number] 04/16/2016 14:27:00 ACT Outpatient PAIGE BLOCK MD [facility] RAD FALL [id number] 02/13/2016 10:38:00 ACT Outpatient MANNY VALENZUELA [facility] LAB HTN [id number] 02/02/2016 13:22:00 ACT Outpatient PAIGE BLOCK MD [facility] RAD COUGH PERSISTENT [id number] 11/02/2015 11:03:00 ACT Outpatient MANNY VALENZUELA [facility] CARD CAD,CLL,PETRONA,HTN [id number] 10/31/2015 14:58:00 ACT Outpatient MANNY VALENZUELA [facility] CARD CAD,CLL,PETRONA,HTN [id number] 03/03/2013 12:40:00 Document Registration [id number] 12/09/2012 13:11:00 Document Registration [id number] 12/09/2012 13:00:00 Document Registration [id number] 09/16/2012 09:53:00 Document Registration [id number] 09/16/2012 09:30:00 Document Registration [id number] 09/09/2012 13:15:00 Document Registration [id number] 08/14/2012 10:50:00 Document Registration [id number] 07/25/2012 14:23:00 Document Registration [id number] 06/24/2012 16:21:00 Document Registration [id number] 06/15/2012 17:28:00 Document Registration [id number] 06/03/2012 10:30:00 Document Registration [id number] 05/19/2012 11:53:00 Document Registration [id number] 05/12/2012 11:57:00 Document Registration [id number] 03/31/2012 06:41:00 Document Registration [id number] 03/07/2012 11:15:00 Document Registration [id number] 03/07/2012 10:31:00 Document Registration [id number] 03/07/2012 10:28:00 Document Registration [id number] 12/31/2011 00:00:00 Document Registration [id number] 12/13/2011 14:16:00 Document Registration [id number] 11/01/2011 14:49:00 Document Registration [id number] 11/01/2011 14:46:00 Document Registration [id number] 09/06/2011 15:04:00 Document Registration [id number] 06/04/2011 14:06:00 Document Registration [id number] 01/08/2011 12:53:00 Document Registration [id number] 08/28/2010 15:47:00 Document Registration
--- NOTE | 2017-01-13 16:00 | ED Back Pain ---
General Chief Complaint: Back Problems Stated Complaint: L HIP/BACK PAIN Nursing Triage Note: pt c/o left low back pain starting saturday. she has been staying in the hospital with her . no known injury. reports hx of left hip replacement. reports the pain only occurs when she is ambulating et lifting her foot. Nursing Sepsis Screen: No Definite Risk Source of Information: Patient Exam Limitations: No Limitations History of Present Illness Time Seen by Provider: 15:59 Initial Comments 81-year-old female patient presents to the emergency department complaints of left low back pain beginning Saturday. Patient states she is staying in the hospital with her . Patient reports her is most likely can be discharged tomorrow and is concerned that she is not in "good enough shape" to care for him with her low back pain. Patient would like an x-ray and something for pain in the emergency department. Denies any known injury. Patient does have a history of left hip replacement. Location: Paraspinous Muscles (left low back) Timing/Duration: 5-6 Days, Constant Pain/Injury Location: Back Radiation: Other (denies radiation) Method of Injury: Unknown Modifying Factors: Worse With Movement, Worse With Pain Medication (no improvement with tramadol) Associated Symptoms: muscle spasmsNo fever, No weakness, No numbness in legs/ feet, No tingling in legs/feet, No sensory/motor loss, lower back painNo loss of bladder control, No loss of bowel control Allergies and Home Medications Allergies Coded Allergies: Aipskcp-Mlg-Dsn Reductase Inhibitor (Unverified Allergy, Unknown, 11/02/15) niacin (Unverified Allergy, Unknown, 11/02/15) Fish Containing Products (Verified Adverse Reaction, Mild, NAUSEA, 11/02/15 ) Home Medications Acetaminophen 500 Mg Tablet 500 MG PO Q 6HR (Reported) Aspirin 81 Mg Tablet.dr 81 MG PO DAILY (Reported) Docusate Sodium 100 Mg Tablet 100 MG PO QID (Reported) Ergocalciferol (Vitamin D2) 50,000 Unit Capsule 50,000 UNIT PO WEELY ON SAT ( Reported) Furosemide 40 Mg Tablet 40 MG PO DAILY (Reported) Iron,Carbonyl 45 Mg Tablet 65 MG PO DAILY (Reported) Isosorbide Mononitrate 30 Mg Tab 30 MG PO HS (Reported) Metoprolol Succinate 100 Mg Tab.er.24h 100 MG PO DAILY (Reported) Multivitamins 1 Each Capsule 1 EACH PO DAILY (Reported) Pantoprazole Sodium 40 Mg Tablet.dr 40 MG PO DAILY (Reported) Potassium Chloride 10 Meq Tablet.sa 20 MEQ PO QID WITH FOOD (Reported) TAKES 2 (10 MEQ) TABLETS QID Prednisone 20 Mg Tab #8 40 MG PO DAILY Prescribed by: LORA MORGAN on 01/13/17 1644 Tramadol HCl 50 Mg Tablet 50 MG PO Q6HRS (Reported) Tramadol HCl 50 Mg Tablet #20 1-2 MG PO Q4H PRN PRN PAIN Prescribed by: LORA MORGAN on 01/13/17 1648 Constitutional: no symptoms reported Respiratory: no symptoms reported Cardiovascular: no symptoms reported Gastrointestinal: no symptoms reported Genitourinary: no symptoms reported Musculoskeletal: see HPI back painNo joint pain, No neck pain Skin: no symptoms reported Psychiatric/Neurological: Denies Numbness, Denies Paresthesia, Denies Tingling , Denies Weakness All Other Systems Reviewed Negative Unless Noted: Yes (Negative excepted noted.) Past Ltfpmee-Cwadow-Phxaas Hx Patient Social History Alcohol Use: Denies Use Recreational Drug Use: No Smoking Status: Never a Smoker Recent Foreign Travel: No Contact w/Someone Who Travel: No Recent Infectious Disease Expo: No Recent Hopitalizations: No Immunizations Up To Date Tetanus Booster (TDap): Unknown Date of Pneumonia Vaccine: Sep 25, 2009 Date of Influenza Vaccine: Sep 30, 2017 Seasonal Allergies Seasonal Allergies: Yes Surgeries HX Surgeries: Yes Surgeries: Appendectomy, Cardiac, CABG, Coronary Stent, Gallbladder, Joint Replacement, Orthopedic, Tubal Ligation Respiratory Hx Respiratory Disorders: No Cardiovascular Hx Cardiac Disorders: Yes (SVT) Cardiac Disorders: Chronic Edema/Swelling, Coronary Artery Disease, Heart Attack, Heart Murmur, High Cholesterol, Hypertension Neurological Hx Neurological Disorders: No Reproductive System Hx Reproductive Disorders: No 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 Genitourinary Hx Genitourinary Disorders: No Gastrointestinal Hx Gastrointestinal Disorders: No Musculoskeletal Hx Musculoskeletal Disorders: Yes (RIGHT KNEE REPLACEMENT; LEFT HIP REPLACEMENT ) Musculoskeletal Disorders: Arthritis, Chronic Back Pain Endocrine Hx Endocrine Disorders: No (OBESITY) HEENT HX ENT Disorders: Yes (cataracts removed) HEENT Disorders: Cataract Cancer Hx Cancer: Yes (CLL) Cancer: Leukemia Psychosocial Hx Psychiatric Problems: No Integumentary HX Skin/Integumentary Disorder: No Blood Transfusions Hx Blood Disorders: Yes (ANEMIA) Reviewed Nursing Assessment Reviewed/Agree w Nursing PMH: Yes Family Medical History Significant Family History: No Pertinent Family Hx Family Medial History: Patient reports no known family medical history. Physical Exam Vital Signs Vital Sign - Last 12Hours 01/13/17 01/13/17 14:06 16:58 Temp 97.8 Pulse 72 Resp 18 B/P 141/66 Pulse Ox 98 Capillary Refill : Less Than 3 Seconds General Appearance: No Apparent Distress WD/WN Cardiovascular: Regular Rate, Rhythm No Murmur Normal Peripheral Pulses Respiratory: Lungs Clear Normal Breath Sounds No Respiratory Distress Gastrointestinal: Normal Bowel Sounds No Organomegaly Non Tender SoftNo Distended Back: Normal Inspection No CVA TendernessNo Decreased Range of Motion, Muscle Spasm (left>right.) Vertebral Tenderness (mild lumbar tenderness.) Extremity: Normal Capillary Refill Normal Inspection Normal Range of Motion Non Tender No Calf Tenderness Pedal Edema (1+ pedal edema bilat) Neurologic/Psychiatric: Alert Oriented x3 No Motor/Sensory Deficits Normal Mood/Affect Skin: Normal Color Warm/Dry Progress/Results/Core Measures Results/Orders My Orders Orders-LORA MORGAN Lumbar Spine - 2-3 Views (01/13/17 16:11) Tramadol Tablet (Ultram Tablet) (01/13/17 16:11) Prednisone Tablet (Deltasone Tablet) (01/13/17 16:15) Medications Given in ED Current Medications Medications Dose Ordered Sig/Russ Route Start Time Stop Time Status Last Admin Dose Admin Prednisone 40 mg ONCE ONCE PO 01/13/17 16:15 01/13/17 16:16 DC 01/13/17 16:17 40 MG Vital Signs/I&O Vital Sign - Last 12Hours 01/13/17 01/13/17 14:06 16:58 Temp 97.8 97.8 Pulse 72 72 Resp 18 18 B/P 141/66 Pulse Ox 98 Blood Pressure Mean: 91 Diagnostic Imaging Diagonstic Imaging: Xray Plain Films/CT/US/NM/MRI: other (l-spine) Comments FINDINGS: There is mild levoscoliosis. Body height is well maintained with no compression fractures. There is advanced diffuse disc disease with loss of disc space height throughout the entire lumbar spine. Mild hypertrophic lipping of the endplates is noted throughout. No evidence of pars defects. SI joints show moderate sclerosis, bilaterally. Aorta is calcified. IMPRESSION: Mild levoscoliosis with advanced diffuse degenerative disc disease. Dictated on workstation # [id number] Reviewed: Reviewed by Me (radiology report reviewed by me.) Departure Communication Progress Notes patient seen and evaluated. Patient states she only wants tramadol for pain. Refuses anything stronger. 1640 diagnostic findings discussed with the patient. Plan for discharge to home. Patient states she is out of her home tramadol. Patient is given a prescription for 20 tablets.patient instructed to follow-up with Dr. Conway as an outpatient for a recheck and refills of her pain medication. Impression Impression: Primary Impression: Back strain Qualified Code: S39.012A - Strain of muscle, fascia and tendon of lower back, initial encounter Disposition: HOME, SELF-CARE Condition: Improved Departure-Patient Inst. Decision time for Depature: 16:42 Referrals: PAIGE CONWAY MD (PCP/Family) Primary Care Physician Patient Instructions: Lumbar Muscle Strain (DC) Add. Discharge Instructions: All discharge instructions reviewed with patient and/or family. Voiced understanding. increase tramadol to 1-2 tablets by mouth every 4 hours as needed for pain. Prednisone as instructed. No strenuous activity, lifting, climbing, or bending for 5-7 days. Increase activity as tolerated. Follow-up with your family practitioner for recheck as an outpatient if needed. Return to the emergency department for worsened pain, abdominal pain, numbness, weakness, bowel incontinence, bladder incontinence, or any other concerns. Scripts Tramadol HCl 50 Mg Tablet1-2 Mg PO Q4H PRN PAIN #20 TAB Ref 0 Prov:LORA MORGAN 01/13/17 Prednisone 20 Mg Tab40 Mg PO DAILY #8 TAB Ref 0 Prov:LORA MORGAN 01/13/17 LORA MORGAN Jan 13, 2017 15:59
[2017-01-13] MEDS ORDERED: predniSONE 20 MG TAB PO ONE (16:15)
--- NOTE | 2017-01-13 16:35 | Diagnostic Imaging Report ---
INDICATION: Low back pain. EXAMINATION: Multiple views of the lumbar spine were obtained. FINDINGS: There is mild levoscoliosis. Body height is well maintained with no compression fractures. There is advanced diffuse disc disease with loss of disc space height throughout the entire lumbar spine. Mild hypertrophic lipping of the endplates is noted throughout. No evidence of pars defects. SI joints show moderate sclerosis, bilaterally. Aorta is calcified. IMPRESSION: Mild levoscoliosis with advanced diffuse degenerative disc disease. Dictated by: Dictated on workstation # [id number]
[2017-01-13] MEDS ORDERED: PRD20T PO (16:44)
[2017-01-13] MEDS ORDERED: TRAM50TA2 PO (16:48)
[2017-01-13 16:58] VITALS: BP 141/66
== END 2017-01-13 16:58 | disposition home or self-care (01) ==
LOC: EDUNIT# 13:47 → ER 13:49
DX: S39.012A Strain of muscle, fascia and tendon of lower back, initial encounter (principal); M51.36 Other intervertebral disc degeneration, lumbar region; I10 Essential (primary) hypertension; E66.9 Obesity, unspecified; I25.2 Old myocardial infarction; Z79.82 Long term (current) use of aspirin; Z79.899 Other long term (current) drug therapy; Z95.1 Presence of aortocoronary bypass graft; Z95.5 Presence of coronary angioplasty implant and graft; Z96.642 Presence of left artificial hip joint; X50.9XXA Other and unspecified overexertion or strenuous movements or postures, initial encounter; Y92.230 Patient room in hospital as the place of occurrence of the external cause; Y99.8 Other external cause status
CPT/HCPCS: 72100; 99285

== ENCOUNTER 2017-03-05 14:23 | Outpatient (RCR) | payer MEDICARE ==
[2016-12-12 13:32] LABS: BASOPHILS % (AUTO) 0 % (0-10); EOSINOPHILS # (AUTO) 0.1 10^3/uL (0.0-0.3); EOSINOPHILS % (AUTO) 1 % (0-10); LYMPHOCYTES # (AUTO) 9.7 X 10^3 (1.0-4.0); LYMPHOCYTES % (AUTO) 76 % (12-44); MEAN CORPUSCULAR HEMOGLOBIN 35 PG (25-34); MEAN CORPUSCULAR HGB CONC 32 G/DL (32-36); MEAN CORPUSCULAR VOLUME 111 FL (80-99); MEAN PLATELET VOLUME 11.4 FL (7.4-10.4); MONOCYTES % (AUTO) 0 % (0-12); NEUTROPHILS % (AUTO) 23 % (42-75); PLATELET COUNT 139 10^3/uL (130-400); RED CELL DISTRIBUTION WIDTH 14.5 % (10.0-14.5); WHITE BLOOD COUNT 12.8 10^3/uL (4.3-11.0)
[2016-12-12 14:03] LABS: ALANINE AMINOTRANSFERASE 23 U/L (0-55); ANION GAP 10 MMOL/L (5-14); ASPARTATE AMINO TRANSFERASE 22 U/L (5-34); BILIRUBIN,TOTAL 0.8 MG/DL (0.1-1.0); BLOOD UREA NITROGEN 26 MG/DL (7-18); BUN/CREATININE RATIO 30; CALCIUM 9.4 MG/DL (8.5-10.1); CARBON DIOXIDE 29 MMOL/L (21-32); CHLORIDE 103 MMOL/L (98-107); CREATININE SERUM 0.87 MG/DL (0.60-1.30); GFR ESTIMATED > 60; GLUCOSE 100 MG/DL (70-105); POTASSIUM 4.5 MMOL/L (3.6-5.0); SODIUM 142 MMOL/L (135-145); TOTAL PROTEIN 5.8 G/DL (6.4-8.2)
[2017-03-05 14:23] LABS: BASOPHILS % (AUTO) 0 % (0-10); EOSINOPHILS # (AUTO) 0.1 10^3/uL (0.0-0.3); EOSINOPHILS % (AUTO) 1 % (0-10); LYMPHOCYTES % (AUTO) 72 % (12-44); MEAN CORPUSCULAR HEMOGLOBIN 35 PG (25-34); MEAN CORPUSCULAR HGB CONC 33 G/DL (32-36); MEAN CORPUSCULAR VOLUME 107 FL (80-99); MEAN PLATELET VOLUME 11.4 FL (7.4-10.4); MONOCYTES # (AUTO) 0.4 X 10^3 (0.0-1.0); MONOCYTES % (AUTO) 4 % (0-12); NEUTROPHILS # (AUTO) 2.3 X 10^3 (1.8-7.8); NEUTROPHILS % (AUTO) 23 % (42-75); PLATELET COUNT 138 10^3/uL (130-400); RED BLOOD COUNT 3.39 10^6/uL (4.35-5.85); RED CELL DISTRIBUTION WIDTH 14.1 % (10.0-14.5); WHITE BLOOD COUNT 9.8 10^3/uL (4.3-11.0)
[~2017-03-05 14:23] MED LIST changes: +PRD20T PO
[2017-03-05 15:10] LABS: ALBUMIN 4.1 G/DL (3.2-4.5); BILIRUBIN,TOTAL 0.7 MG/DL (0.1-1.0); CALCIUM 8.9 MG/DL (8.5-10.1); CREATININE SERUM 1.03 MG/DL (0.60-1.30); POTASSIUM 3.9 MMOL/L (3.6-5.0); TOTAL PROTEIN 6.2 G/DL (6.4-8.2)
== END 2017-03-12 | disposition home or self-care (01) ==
LOC: ONC 14:23
PROVIDERS: ATTEND Internal Medicine Hematology & Oncology
DX: C91.10 Chronic lymphocytic leukemia of B-cell type not having achieved remission (principal); D50.9 Iron deficiency anemia, unspecified; I25.10 Atherosclerotic heart disease of native coronary artery without angina pectoris; K21.9 Gastro-esophageal reflux disease without esophagitis; Z79.899 Other long term (current) drug therapy; Z95.1 Presence of aortocoronary bypass graft
CPT/HCPCS: 36415; 80053; 85025; 99213

== ENCOUNTER 2017-06-05 14:23 | Outpatient (RCR) | payer MEDICARE ==
[2017-04-05 10:13] LABS: BASOPHILS % (AUTO) 0 % (0-10); EOSINOPHILS # (AUTO) 0.1 10^3/uL (0.0-0.3); EOSINOPHILS % (AUTO) 1 % (0-10); LYMPHOCYTES # (AUTO) 10.6 X 10^3 (1.0-4.0); LYMPHOCYTES % (AUTO) 71 % (12-44); MEAN CORPUSCULAR HEMOGLOBIN 35 PG (25-34); MEAN CORPUSCULAR HGB CONC 32 G/DL (32-36); MEAN CORPUSCULAR VOLUME 109 FL (80-99); MEAN PLATELET VOLUME 11.6 FL (7.4-10.4); MONOCYTES # (AUTO) 0.5 X 10^3 (0.0-1.0); MONOCYTES % (AUTO) 4 % (0-12); NEUTROPHILS # (AUTO) 3.6 X 10^3 (1.8-7.8); NEUTROPHILS % (AUTO) 24 % (42-75); PLATELET COUNT 142 10^3/uL (130-400); RED BLOOD COUNT 3.56 10^6/uL (4.35-5.85); RED CELL DISTRIBUTION WIDTH 14.2 % (10.0-14.5); WHITE BLOOD COUNT 14.9 10^3/uL (4.3-11.0)
[2017-04-05 10:36] LABS: ALBUMIN 4.1 G/DL (3.2-4.5); BILIRUBIN,TOTAL 1.1 MG/DL (0.1-1.0); CALCIUM 9.4 MG/DL (8.5-10.1); CREATININE SERUM 0.96 MG/DL (0.60-1.30); POTASSIUM 4.4 MMOL/L (3.6-5.0); TOTAL PROTEIN 6.1 G/DL (6.4-8.2)
[2017-04-05 10:56] LABS: THYROID STIMULATING HORMONE 1.26 UIU/ML (0.35-4.94)
[~2017-06-05 14:23] MED LIST changes: -D50KC PO; +ERGO50006 PO; -METO-274 PO; +METO-395 PO
[2017-06-05 14:33] LABS: BASOPHILS % (AUTO) 0 % (0-10); EOSINOPHILS # (AUTO) 0.1 10^3/uL (0.0-0.3); EOSINOPHILS % (AUTO) 1 % (0-10); LYMPHOCYTES # (AUTO) 9.9 X 10^3 (1.0-4.0); LYMPHOCYTES % (AUTO) 77 % (12-44); MEAN CORPUSCULAR HEMOGLOBIN 35 PG (25-34); MEAN CORPUSCULAR HGB CONC 32 G/DL (32-36); MEAN CORPUSCULAR VOLUME 109 FL (80-99); MEAN PLATELET VOLUME 11.5 FL (7.4-10.4); MONOCYTES # (AUTO) 0.5 X 10^3 (0.0-1.0); MONOCYTES % (AUTO) 4 % (0-12); NEUTROPHILS # (AUTO) 2.3 X 10^3 (1.8-7.8); NEUTROPHILS % (AUTO) 18 % (42-75); PLATELET COUNT 133 10^3/uL (130-400); RED BLOOD COUNT 3.42 10^6/uL (4.35-5.85); RED CELL DISTRIBUTION WIDTH 14.4 % (10.0-14.5); WHITE BLOOD COUNT 12.9 10^3/uL (4.3-11.0)
[2017-06-05 14:58] LABS: ALBUMIN 3.9 GM/DL (3.2-4.5); BILIRUBIN,TOTAL 0.8 MG/DL (0.1-1.0); CALCIUM 9.1 MG/DL (8.5-10.1); CREATININE SERUM 0.99 MG/DL (0.60-1.30); POTASSIUM 4.1 MMOL/L (3.6-5.0); TOTAL PROTEIN 6.1 GM/DL (6.4-8.2)
[2017-06-05 15:18] LABS: THYROID STIMULATING HORMONE 1.37 UIU/ML (0.35-4.94)
== END 2017-07-04 | disposition home or self-care (01) ==
LOC: ONC 14:23
PROVIDERS: ATTEND Internal Medicine Hematology & Oncology
DX: C91.10 Chronic lymphocytic leukemia of B-cell type not having achieved remission (principal); D50.9 Iron deficiency anemia, unspecified; I25.10 Atherosclerotic heart disease of native coronary artery without angina pectoris; K21.9 Gastro-esophageal reflux disease without esophagitis; Z79.899 Other long term (current) drug therapy; Z95.1 Presence of aortocoronary bypass graft
CPT/HCPCS: 36415; 80053; 82728; 83540; 83615; 84443; 85025; 99213

== ENCOUNTER → 2017-08-22 | Outpatient (CLI) | payer MEDICARE ==
[~2017-08-22] MED LIST changes: +METO-274 PO; -METO-395 PO
--- NOTE | 2017-08-22 13:07 | Diagnostic Imaging Report ---
EXAMINATION: Two views of the left hip. INDICATION: Left hip pain. FINDINGS: There is a total left hip arthroplasty which appears to be in good alignment. No previous study is available for comparison. There is a lucency seen in a linear pattern around the proximal aspect of the femoral component surrounding the cement between 2-3 mm. This might relate to mild loosening. The acetabular component is well-seated. No acute fracture seen. IMPRESSION: Mild lucency around the proximal aspect of the femoral component may relate to loosening. Dictated by: Dictated on workstation # [id number]
== END ==
LOC: RAD 10:28
PROVIDERS: ATTEND Family Medicine
DX: M25.552 Pain in left hip (principal); Z96.642 Presence of left artificial hip joint
CPT/HCPCS: 73502

== ENCOUNTER 2017-09-03 09:58 | Outpatient (RCR) | payer MEDICARE ==
[~2017-09-03 09:58] MED LIST changes: -METO-274 PO; +METO-395 PO
[2017-09-03 10:40] LABS: BASOPHILS % (AUTO) 0 % (0-10); EOSINOPHILS # (AUTO) 0.1 10^3/uL (0.0-0.3); EOSINOPHILS % (AUTO) 1 % (0-10); HEMATOCRIT 38 % (35-52); HEMOGLOBIN 12.2 G/DL (11.5-16.0); LYMPHOCYTES # (AUTO) 11.7 X 10^3 (1.0-4.0); LYMPHOCYTES % (AUTO) 79 % (12-44); MEAN CORPUSCULAR HEMOGLOBIN 35 PG (25-34); MEAN CORPUSCULAR HGB CONC 32 G/DL (32-36); MEAN CORPUSCULAR VOLUME 110 FL (80-99); MONOCYTES # (AUTO) 0.2 X 10^3 (0.0-1.0); MONOCYTES % (AUTO) 1 % (0-12); NEUTROPHILS # (AUTO) 2.8 X 10^3 (1.8-7.8); NEUTROPHILS % (AUTO) 19 % (42-75); PLATELET COUNT 128 10^3/uL (130-400); RED BLOOD COUNT 3.48 10^6/uL (4.35-5.85); RED CELL DISTRIBUTION WIDTH 14.2 % (10.0-14.5); WHITE BLOOD COUNT 14.8 10^3/uL (4.3-11.0)
[2017-09-03 10:59] LABS: ALANINE AMINOTRANSFERASE 21 U/L (0-55); ALBUMIN 3.9 GM/DL (3.2-4.5); ALKALINE PHOSPHATASE 81 U/L (40-136); BILIRUBIN,TOTAL 0.8 MG/DL (0.1-1.0); BUN/CREATININE RATIO 24; CALCIUM 9.1 MG/DL (8.5-10.1); CARBON DIOXIDE 28 MMOL/L (21-32); CHLORIDE 106 MMOL/L (98-107); CREATININE SERUM 0.82 MG/DL (0.60-1.30); GFR ESTIMATED > 60; GLUCOSE 108 MG/DL (70-105); SODIUM 143 MMOL/L (135-145); TOTAL PROTEIN 6.1 GM/DL (6.4-8.2)
== END 2017-12-02 | disposition home or self-care (01) ==
LOC: ONC 09:58
PROVIDERS: ATTEND Internal Medicine Hematology & Oncology
DX: C91.10 Chronic lymphocytic leukemia of B-cell type not having achieved remission (principal); D50.9 Iron deficiency anemia, unspecified; I25.10 Atherosclerotic heart disease of native coronary artery without angina pectoris; K21.9 Gastro-esophageal reflux disease without esophagitis; Z79.899 Other long term (current) drug therapy; Z95.1 Presence of aortocoronary bypass graft
CPT/HCPCS: 36415; 80053; 85025; 99213

== ENCOUNTER → 2017-11-06 | Outpatient (CLI) | payer MEDICARE ==
[2017-11-06 09:51] LABS: ALANINE AMINOTRANSFERASE 20 U/L (0-55); ANION GAP 10 MMOL/L (5-14); ASPARTATE AMINO TRANSFERASE 19 U/L (5-34); BILIRUBIN,TOTAL 0.9 MG/DL (0.1-1.0); BLOOD UREA NITROGEN 21 MG/DL (7-18); BUN/CREATININE RATIO 25; CALCIUM 9.4 MG/DL (8.5-10.1); CARBON DIOXIDE 27 MMOL/L (21-32); CHLORIDE 106 MMOL/L (98-107); CHOLESTEROL 201 MG/DL (< 200); CREATININE SERUM 0.85 MG/DL (0.60-1.30); DIRECT LDL 116 MG/DL (1-129); GFR ESTIMATED > 60; GLUCOSE 113 MG/DL (70-105); POTASSIUM 4.3 MMOL/L (3.6-5.0); SODIUM 143 MMOL/L (135-145); TOTAL PROTEIN 6.2 GM/DL (6.4-8.2); TRIGLYCERIDES 154 MG/DL (<150); VLDL CHOLESTEROL 31 MG/DL (5-40)
== END ==
LOC: LAB 09:00
PROVIDERS: ATTEND Physician Assistant
DX: I25.10 Atherosclerotic heart disease of native coronary artery without angina pectoris (principal); I65.23 Occlusion and stenosis of bilateral carotid arteries; I10 Essential (primary) hypertension; E78.2 Mixed hyperlipidemia
CPT/HCPCS: 36415; 80053; 80061

== ENCOUNTER 2017-11-10 13:36 | Emergency (ER) | payer MEDICARE ==
[~2017-11-10] VITALS: Ht 165.1 cm; Wt 104.3 kg
[2017-11-10] MEDS ORDERED: fentaNYL INJECTION 100 MCG/2 ML AMP ONE (14:09)
[2017-11-10] MEDS ORDERED: fentaNYL INJECTION 100 MCG/2 ML AMP IVP ONE (14:15)
--- NOTE | 2017-11-10 14:16 | ED Upper Extremity ---
General Chief Complaint: Upper Extremity Stated Complaint: FALL Nursing Triage Note: PT ARRIVED PER EMS PT FELL GOING UP STEP CANE SLIPPED, CO OF R SHOULDER PAIN, DENIES HITTING HEAD OR LOC. Nursing Sepsis Screen: No Definite Risk Source: patient, family History of Present Illness Time seen by provider: 14:11 Initial Comments This 81-year-old white female presents after she fell sustaining an injury to her right shoulder shortly prior to presentation to the Emergency Department. The patient is complaining of pain over the anterior aspect of the right shoulder. The pain is sharp in character and severe in quality. It is made worse with movement of the right arm. The patient denies other injury and her fall. She denies paresthesias or weakness in the right upper extremity. Allergies and Home Medications Allergies Coded Allergies: Ptkyhsc-Gsb-Iow Reductase Inhibitor (Unverified Allergy, Unknown, 11/02/15) niacin (Unverified Allergy, Unknown, 11/02/15) Fish Containing Products (Verified Adverse Reaction, Mild, NAUSEA, 11/02/15 ) Home Medications Acetaminophen 500 Mg Tablet, 500 MG PO Q 6HR, (Reported) Aspirin 81 Mg Tablet.dr, 81 MG PO DAILY, (Reported) Docusate Sodium 100 Mg Tablet, 100 MG PO QID, (Reported) Ergocalciferol (Vitamin D2) 50,000 Unit Capsule, 50,000 UNIT PO WEELY ON SAT, ( Reported) Furosemide 40 Mg Tablet, 40 MG PO DAILY, (Reported) Iron,Carbonyl 45 Mg Tablet, 65 MG PO DAILY, (Reported) Isosorbide Mononitrate 30 Mg Tab, 30 MG PO HS, (Reported) Metoprolol Succinate 100 Mg Tab.er.24h, 100 MG PO DAILY, (Reported) Multivitamins 1 Each Capsule, 1 EACH PO DAILY, (Reported) Pantoprazole Sodium 40 Mg Tablet.dr, 40 MG PO DAILY, (Reported) Potassium Chloride 10 Meq Tablet.sa, 20 MEQ PO QID WITH FOOD, (Reported) TAKES 2 (10 MEQ) TABLETS QID Prednisone 20 Mg Tab, 40 MG PO DAILY, #8 Ref 0 Prescribed by: LORA MORGAN on 01/13/17 8414 Tramadol HCl 50 Mg Tablet, 50 MG PO Q6HRS, (Reported) Tramadol HCl 50 Mg Tablet, 1-2 MG PO Q4H PRN for PAIN, #20 Ref 0 Prescribed by: LORA MORGAN on 01/13/17 8898 Constitutional: No chills, No fever EENTM: No hearing loss, No vision loss Respiratory: No cough Cardiovascular: No chest pain Gastrointestinal: No abdominal pain, No nausea, No vomiting Genitourinary: no symptoms reported : No Musculoskeletal: joint pain (right shoulder.) Skin: No rash Psychiatric/Neurological: No Symptoms Reported Past Ndtarvt-Vicrfq-Yhifox Hx Patient Social History Alcohol Use: Denies Use Recreational Drug Use: No Smoking Status: Never a Smoker Recent Foreign Travel: No Contact w/Someone Who Travel: No Recent Infectious Disease Expo: No Recent Hopitalizations: No Physical Abuse: No Sexual Abuse: No Immunizations Up To Date Tetanus Booster (TDap): Unknown Date of Pneumonia Vaccine: Sep 25, 2009 Date of Influenza Vaccine: Sep 30, 2017 Seasonal Allergies Seasonal Allergies: Yes Surgeries History of Surgeries: Yes Surgeries: Appendectomy, Cardiac, CABG, Coronary Stent, Gallbladder, Joint Replacement, Orthopedic, Tubal Ligation Respiratory History of Respiratory Disorde: No Cardiovascular History of Cardiac Disorders: Yes (SVT) Cardiac Disorders: Chronic Edema/Swelling, Coronary Artery Disease, Heart Attack, Heart Murmur, High Cholesterol, Hypertension Neurological History of Neurological Disord: No Reproductive System Hx Reproductive Disorders: 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 Gastrointestinal History of Gastrointestinal Di: No Musculoskeletal History of Musculoskeletal Dis: Yes (RIGHT KNEE REPLACEMENT; LEFT HIP REPLACEMENT) Musculoskeletal Disorders: Arthritis, Chronic Back Pain Endocrine History of Endocrine Disorders: No (OBESITY) HEENT HEENT Disorders: Cataract Cancer History of Cancer: Yes (CLL) Cancer: Leukemia Psychosocial History of Psychiatric Problem: No Suicide Risk Score: 0 Integumentary History of Skin or Integumenta: No Blood Transfusions History of Blood Disorders: Yes (ANEMIA) Reviewed Nursing Assessment Reviewed/Agree w Nursing PMH: Yes Family Medical History Significant Family History: No Pertinent Family Hx Family Medial History: Patient reports no known family medical history. Physical Exam Vital Signs Vital Sign - Last 12Hours 11/10/17 13:36 Temp 97.9 Pulse 88 Resp 18 B/P (MAP) 134/68 (90) Pulse Ox 94 Capillary Refill : Less Than 3 Seconds General Appearance: WD/WN, mild distress HEENT: normal ENT inspection Neck: normal inspection Cardiovascular: regular rate, rhythm Respiratory: lungs clear Gastrointestinal: normal bowel sounds, soft Back: normal inspection Shoulder: pain (over the anterior aspect of the right shoulder) Elbow/Forearm: normal inspection, no evidence of injury Wrist: Yes normal inspection, Yes no evidence of injury Hand: normal inspection, no evidence of injury Neurologic/Tendon: normal sensation Neurologic/Psychiatric: no motor/sensory deficits, alert Skin: normal color, warm/dry, cyanosis Progress/Results/Core Measures Results/Orders My Orders Orders - AAMIR RENTERIA MD Shoulder, Right, 3 Views (11/10/17 13:50) Fentanyl Injection (Sublimaze Injection (11/10/17 14:15) Fentanyl Injection (Sublimaze Injection (11/10/17 14:09) Medications Given in ED Current Medications Medications Dose Ordered Sig/Russ Route Start Time Stop Time Status Last Admin Dose Admin Fentanyl Citrate 50 mcg ONCE ONCE IVP 11/10/17 14:15 11/10/17 14:16 DC 11/10/17 14:13 50 MCG Vital Signs/I&O Vital Sign - Last 12Hours 11/10/17 13:36 Temp 97.9 Pulse 88 Resp 18 B/P (MAP) 134/68 (90) Pulse Ox 94 Blood Pressure Mean: 90 Progress Note : Time: 14:57 Progress Note X-ray of the right shoulder demonstrated a comminuted fracture of the proximal right humerus. The fracture extended into the joint surface. I discussed the findings with the patient and her family. Patient was placed in a shoulder immobilizer for comfort. Last patient follow-up with orthopedics with a phone call on Saturday to the office. Rest and ice to the right shoulder area was recommended. Departure Impression Impression: Primary Impression: Fracture of humerus, right, closed Qualified Codes: S42.231A - 3-part fracture of surgical neck of right humerus , initial encounter for closed fracture Disposition: 01 HOME, SELF-CARE Condition: Improved Departure-Patient Inst. Decision time for Depature: 15:00 Referrals: ANASTASIA MEDRANO MD (PCP/Family) Primary Care Physician RALEIGH ESPINOZA DO Patient Instructions: Shoulder Fracture Add. Discharge Instructions: Percocet for pain. Ice to the right shoulder. Shoulder immobilizer for comfort. Close follow-up with orthopedics next week. Return if any problems. All discharge instructions reviewed with patient and/or family. Voiced understanding. AAMIR RENTERIA MD Nov 10, 2017 14:16
--- NOTE | 2017-11-10 14:50 | Diagnostic Imaging Report ---
INDICATION: Right shoulder pain after fall. COMPARISON: None available. TECHNIQUE: 3 views of the right shoulder. FINDINGS: There is an acute, mildly comminuted fracture of the proximal humerus. Dominant fractures and impacted fracture involving the surgical neck. There appears to be an intra-articular split fracture of the humeral articular surface as well. Inferior subluxation of the humeral head is likely due to joint effusion. No displaced fracture of the greater or lesser tuberosities are seen on this examination. IMPRESSION: Acute, mildly comminuted fracture of the proximal humerus with involvement of the surgical neck as well as an intra-articular split fracture. Dictated by: Dictated on workstation # [id number]
[2017-11-10 15:10] VITALS: BP 134/68
== END 2017-11-10 15:10 | disposition home or self-care (01) ==
LOC: EDUNIT# 13:36 → ER 13:39
DX: S42.291A Other displaced fracture of upper end of right humerus, initial encounter for closed fracture (principal); I25.10 Atherosclerotic heart disease of native coronary artery without angina pectoris; I25.2 Old myocardial infarction; E78.00 Pure hypercholesterolemia, unspecified; I10 Essential (primary) hypertension; Z96.651 Presence of right artificial knee joint; Z96.641 Presence of right artificial hip joint; Z85.6 Personal history of leukemia; Z79.82 Long term (current) use of aspirin; Z90.49 Acquired absence of other specified parts of digestive tract; Z95.5 Presence of coronary angioplasty implant and graft; Z95.1 Presence of aortocoronary bypass graft; Z98.51 Tubal ligation status; W01.0XXA Fall on same level from slipping, tripping and stumbling without subsequent striking against object, initial encounter
CPT/HCPCS: 73030; 96374; 99284

== ENCOUNTER → 2018-02-19 | Outpatient (CLI) | payer MEDICARE | LOC: CARD 08:59 | PROVIDERS: ATTEND Physician Assistant | DX: I25.10 Atherosclerotic heart disease of native coronary artery without angina pectoris (principal); I10 Essential (primary) hypertension; E78.5 Hyperlipidemia, unspecified; I08.0 Rheumatic disorders of both mitral and aortic valves | CPT/HCPCS: 93306 ==

== ENCOUNTER → 2018-04-24 | Outpatient (CLI) | payer MEDICARE ==
--- NOTE | 2018-04-24 12:39 | Diagnostic Imaging Report ---
EXAMINATION: Magnetic resonance imaging of the right shoulder without contrast. DATE: April 24, 2018. COMPARISON: Right shoulder radiographs, November 10, 2017. HISTORY: 82-year-old female, fall in October 2017. Persistent right shoulder pain. TECHNIQUE: Magnetic Resonance Imaging sequences were performed of the shoulder without contrast. FINDINGS: ROTATOR CUFF, LIGAMENTS, TENDONS, AND MUSCLES: There is a full-thickness full-width tear of the supraspinatus tendon with tendon retraction of approximately 4 cm between the level of the superior humeral head and glenoid. The infraspinatus and teres minor tendons are intact. There is prominent abnormal thickening and increased signal of the subscapularis tendon which is also altered in morphology, compatible with at least severe tendinopathy. There is no fluid-filled full-thickness tear of the subscapularis tendon. There is normal rotator cuff muscle bulk and signal. LONG HEAD OF BICEPS: There is thickening and increased signal of the long head of biceps tendon, compatible with long head of biceps tendinopathy. There is also question of an interstitial split tear of the long head of biceps tendon. The long head of biceps tendon is not dislocated outside of the bicipital groove. GLENOHUMERAL JOINT: The humeral head is mildly posteriorly subluxed. There is no discretely identified labral tear. There is no identified paralabral cyst. The articular cartilage is grossly intact. There is no large glenohumeral joint effusion. ACROMIOCLAVICULAR JOINT: The acromioclavicular joint is normally aligned. The coracoclavicular and coracoacromial ligaments are intact. There are mild acromioclavicular degenerative changes without large undersurface osteophyte. BONE: There is a comminuted displaced multipart fracture of the proximal humerus involving the humeral neck as well as the greater and lesser tuberosities. There is override of fracture fragments at the level of the humeral neck measuring approximately 9.5 mm. The [id number] offset of the cortex of the superior humeral head measuring 5 mm as measured on coronal proton-density sequence image 8. There is also abnormal anterior-to posterior offset of bone at the level of the humeral neck measuring 8 mm on sagittal T1 sequence image 10. There is increased T2 signal in the fracture fragment at the superior aspect of the humeral head with at least partially fluid-filled fractured cleft on sagittal T2 fat-saturation sequence image 6. There is no pathognomonic double line sign of osteonecrosis, although the edema potentially could reflect early changes of osteonecrosis of bone. The degree of T2 hyperintense signal in this fracture fragment is not present in the additional visualized bone. BURSAE AND SOFT TISSUES: The bursae and soft tissue surrounding the shoulder are unremarkable. IMPRESSION: 1. Comminuted displaced multipart fracture of the proximal humerus with involvement of the humeral neck and greater and lesser tuberosities. Overall alignment of the fracture is very similar to the comparison radiograph of November 10, 2017. There is at least a non-completely bridged fracture fragment involving the superior aspect of the humeral head. Bony bridging is not well assessed on MRI and would be more optimally assessed with radiographs or CT. The fracture fragment in the region of the superior humeral head has pronounced increased T2 signal which potentially could reflect changes of osteonecrosis of this bone fragment. 2. Full-thickness full-width tear of the subscapularis tendon. Severe tendinopathy of subscapularis. No fatty muscle atrophy. 3. Mild acromioclavicular degenerative changes without large undersurface osteophyte. 4. Grossly unremarkable appearance of the glenohumeral joint. 5. Long head of biceps tendinopathy with suspected interstitial split tear of the long head of biceps tendon. The long head of biceps tendon is normally positioned within the bicipital groove. Dictated by: Dictated on workstation # [id number]
== END ==
LOC: RAD 08:44
PROVIDERS: ATTEND Orthopaedic Surgery
DX: S46.811A Strain of other muscles, fascia and tendons at shoulder and upper arm level, right arm, initial encounter (principal); S42.291D Other displaced fracture of upper end of right humerus, subsequent encounter for fracture with routine healing; S42.491D Other displaced fracture of lower end of right humerus, subsequent encounter for fracture with routine healing; M75.21 Bicipital tendinitis, right shoulder; Z91.81 History of falling
CPT/HCPCS: 73221

== ENCOUNTER 2018-06-03 12:49 | Outpatient (RCR) | payer MEDICARE ==
[2018-06-03 13:03] LABS: BASOPHILS % (AUTO) 0 % (0-10); EOSINOPHILS # (AUTO) 0.1 10^3/uL (0.0-0.3); EOSINOPHILS % (AUTO) 1 % (0-10); HEMATOCRIT 35 % (35-52); HEMOGLOBIN 11.8 G/DL (11.5-16.0); LYMPHOCYTES # (AUTO) 9.5 X 10^3 (1.0-4.0); LYMPHOCYTES % (AUTO) 75 % (12-44); MEAN CORPUSCULAR HEMOGLOBIN 36 PG (25-34); MEAN CORPUSCULAR HGB CONC 34 G/DL (32-36); MEAN CORPUSCULAR VOLUME 108 FL (80-99); MEAN PLATELET VOLUME 11.7 FL (7.4-10.4); MONOCYTES # (AUTO) 0.5 X 10^3 (0.0-1.0); MONOCYTES % (AUTO) 4 % (0-12); NEUTROPHILS # (AUTO) 2.5 X 10^3 (1.8-7.8); NEUTROPHILS % (AUTO) 20 % (42-75); PLATELET COUNT 119 10^3/uL (130-400); RED BLOOD COUNT 3.24 10^6/uL (4.35-5.85); RED CELL DISTRIBUTION WIDTH 14.3 % (10.0-14.5); WHITE BLOOD COUNT 12.6 10^3/uL (4.3-11.0)
[2018-06-03 13:20] LABS: ALANINE AMINOTRANSFERASE 14 U/L (0-55); ALKALINE PHOSPHATASE 73 U/L (40-136); BILIRUBIN,TOTAL 0.8 MG/DL (0.1-1.0); BUN/CREATININE RATIO 26; CALCIUM 9.3 MG/DL (8.5-10.1); CARBON DIOXIDE 28 MMOL/L (21-32); CHLORIDE 104 MMOL/L (98-107); CREATININE SERUM 0.81 MG/DL (0.60-1.30); GFR ESTIMATED > 60; GLUCOSE 101 MG/DL (70-105); POTASSIUM 4.2 MMOL/L (3.6-5.0); SODIUM 143 MMOL/L (135-145)
== END 2018-06-24 | disposition home or self-care (01) ==
LOC: ONC 12:49
PROVIDERS: ATTEND Internal Medicine Hematology & Oncology
DX: C91.10 Chronic lymphocytic leukemia of B-cell type not having achieved remission (principal); D50.9 Iron deficiency anemia, unspecified; I25.10 Atherosclerotic heart disease of native coronary artery without angina pectoris; K21.9 Gastro-esophageal reflux disease without esophagitis; Z79.899 Other long term (current) drug therapy; Z95.1 Presence of aortocoronary bypass graft
CPT/HCPCS: 36415; 80053; 85025; 99213

== ENCOUNTER → 2018-06-12 | Outpatient (CLI) | payer MEDICARE ==
[2018-06-12 09:14] LABS: ALANINE AMINOTRANSFERASE 19 U/L (0-55); ALBUMIN 3.9 GM/DL (3.2-4.5); ALKALINE PHOSPHATASE 69 U/L (40-136); BUN/CREATININE RATIO 29; CALCIUM 9.3 MG/DL (8.5-10.1); CARBON DIOXIDE 31 MMOL/L (21-32); CHLORIDE 106 MMOL/L (98-107); CHOLESTEROL 194 MG/DL (< 200); GFR ESTIMATED > 60; GLUCOSE 121 MG/DL (70-105); HDL CHOLESTEROL 42 MG/DL (40-60); POTASSIUM 4.7 MMOL/L (3.6-5.0); SODIUM 143 MMOL/L (135-145); TOTAL PROTEIN 5.6 GM/DL (6.4-8.2); TRIGLYCERIDES 139 MG/DL (<150); VLDL CHOLESTEROL 28 MG/DL (5-40)
== END ==
LOC: LAB 08:07
PROVIDERS: ATTEND Physician Assistant
DX: I25.10 Atherosclerotic heart disease of native coronary artery without angina pectoris (principal); E78.5 Hyperlipidemia, unspecified; I10 Essential (primary) hypertension
CPT/HCPCS: 36415; 80053; 80061

== ENCOUNTER → 2018-07-30 | Outpatient (CLI) | payer MEDICARE ==
[~2018-07-30] MED LIST changes: +ACET325T49 PO; +CATHETER FLUSH 10 ML SYR IV PRN; +REGADENOSON 0.4 MG/5 ML SYR (LEXISCAN) IV ONE; +SPIR25TA5 PO
[2018-07-30 13:05] VITALS: BP 144/65
[2018-07-30 13:14] VITALS: BP 124/86
--- NOTE | 2018-07-30 19:06 | STRESS TEST ---
DATE OF SERVICE: 07/30/2018 LEXISCAN MYOVIEW STRESS TEST REPORT Baseline heart rate is 74, baseline blood pressure 144/65. Baseline EKG is sinus rhythm with no ischemic changes. In summary, the patient was injected with 10.59 mCi of technetium-99 Myoview and the resting images were obtained. Then, the patient received 0.4 mg of Lexiscan followed by 32.4 mCi of technetium-99 Myoview. Throughout the test, the patient was asymptomatic. The resting and stress images were reviewed and compared in the short axis, horizontal long axis, and vertical long axis views. Review of the images showed breast attenuation affecting the quality of the images, there is reversible ischemia involving the whole anterior wall, anterolateral wall and anterior septum. SSS 21, SDS 11, TID value 0.97. On the gated images, the left ventricle appeared to be in normal size with normal contractility. Calculated ejection fraction 70%. CONCLUSION: 1. The patient tolerated Lexiscan well. 2. Breast attenuation with reversible ischemia involving the whole anterior wall, anterolateral wall and anterior septum. 3. Normal left ventricular size with normal contractility. Calculated ejection fraction 70%. Job ID: [id number] DocumentID: [id number] Dictated Date: 07/30/2018 15:47:41 Draw Frame Operator Date: 07/30/2018 19:05:29 Dictated By: ELISABETH ARAYA MD
== END ==
LOC: CARD 10:21
PROVIDERS: ATTEND Internal Medicine Cardiovascular Disease
DX: R06.00 Dyspnea, unspecified (principal); I25.10 Atherosclerotic heart disease of native coronary artery without angina pectoris; I08.3 Combined rheumatic disorders of mitral, aortic and tricuspid valves
CPT/HCPCS: 78452; 93017; 93306

== ENCOUNTER 2018-08-04 06:42 | Day surgery (SDC) | payer MEDICARE ==
[2018-08-04] VITALS (7 sets, daily range): BP systolic 97–146; BP diastolic 46–72
[~2018-08-04] VITALS: Ht 165.1 cm; Wt 98.4 kg
[~2018-08-04 06:42] MED LIST changes: -ACET325T49 PO; -CATHETER FLUSH 10 ML SYR IV PRN; -REGADENOSON 0.4 MG/5 ML SYR (LEXISCAN) IV ONE; -SPIR25TA5 PO
--- OUTSIDE RECORDS SUMMARY | 2018-08-04 06:45 | XMS REPORT | Clinical Summary ---
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 Instructor Name Role Phone PP Unavailable Allergies Not on File Current Medications Not on file Active Problems Not on file Social History Tobacco Use Types Packs/Day Years Used Date Never Assessed Sex Assigned at Date Recorded Not on file Last Filed Vital Signs Vital Sign Reading Time Taken Blood Pressure 139/68 03/25/2007 12:01 AM CDT Pulse - - Temperature - - Respiratory Rate - - Oxygen Saturation - - Inhaled Oxygen - - Concentration Weight 99.8 kg (220 lb) 03/25/2007 12:01 AM CDT Height 160 cm (5' 3") 03/25/2007 12:01 AM CDT Body Mass Index 38.97 03/25/2007 12:01 AM CDT Plan of Treatment Health Maintenance Due Date Last Done Comments DTaP,Tdap,and Td Vaccines 1954 (1 - Tdap) Zoster Recombinant 1983 Vaccine (RZV,Shingrix) (1 of 2 - [facility] 2 Dose Standard) Pneumo-Adult (1 of 2 - 1998 PCV13) Results Not on filefrom Last 3 Months
[2018-08-04] MEDS ORDERED: LIDOCAINE 1% INJ 20 ML 20 ML VIAL ONE ×2 (06:49→08:07)
[2018-08-04] MEDS ORDERED: methylPREDNISolone 125 MG (Solu-MEDROL) VIAL ONE (06:51)
[2018-08-04] MEDS ORDERED: HEParin 1000 UNIT/ML (10ML VIAL) FOR BOLUS ONE (06:51)
[2018-08-04] MEDS ORDERED: diphenhydrAMINE 50 MG/ML INJ (BENADRYL) ONE (06:51)
--- OUTSIDE RECORDS SUMMARY | 2018-08-04 06:54 | XMS REPORT | Continuity of Care Document ---
Author Author [facility] Organization [facility] Address Unknown Phone Unavailable Allergies Active Description Code Type Severity Reaction Onset Reported/Identified Relationship to Patient Clinical Status Yes STATIN MEDICINE, NIACIN STATIN MEDICINE, NIACIN Unknown N/A 03/31/2012 Yes Fish Containing Products [id number] Drug Allergy Unknown NAUSEA 11/05/2014 Yes Fish Containing Products [id number] Drug Allergy Mild NAUSEA 11/02/2015 Yes niacin [id number] Drug Allergy Unknown N/A 11/02/2015 Yes Gjjquyu-Iyn-Olt Reductase Inhibitor [id number] Drug Allergy Unknown N/A 07/2015 Medications There is no data. Problems Date Dx Coded Attending Type Code [...] PERCUTANEOUS TRANSLUM CORON ANGIOPLASTY 06/27/2011 Ot V58.63 LONG-TERM( CURRENT)USE OF ANTIPLATELET/AN 06/27/2011 Ot V58.66 LONG-TERM ( CURRENT) USE OF ASPIRIN 06/27/2011 Ot V58.69 OTH MED,LT, CURRENT USE 09/26/2011 Ot 204.10 CHRONIC LYMPHOID LEUKEMIA, W/O MENTION A 09/26/2011 Ot 285.9 ANEMIA NOS 09/26/2011 Ot 414.00 CORON ATHEROSCLER NOS TYPE VESSEL, NATIV 09/26/2011 Ot 530.81 ESOPHAGEAL REFLUX 09/26/2011 Ot V45.81 AORTOCORONARY BYPASS 09/26/2011 Ot V45.82 PERCUTANEOUS TRANSLUM CORON ANGIOPLASTY 09/26/2011 Ot V58.63 LONG-TERM( CURRENT)USE OF ANTIPLATELET/AN 09/26/2011 Ot V58.66 LONG-TERM ( CURRENT) USE OF ASPIRIN 09/26/2011 Ot V58.69 OTH MED,LT, CURRENT USE 12/30/2011 Ot 204.10 CHRONIC LYMPHOID LEUKEMIA, W/O MENTION A 12/30/2011 Ot 285.9 ANEMIA NOS 12/30/2011 Ot 414.00 CORON ATHEROSCLER NOS TYPE VESSEL, NATIV 12/30/2011 Ot 530.81 ESOPHAGEAL REFLUX 12/30/2011 Ot V45.81 AORTOCORONARY BYPASS 12/30/2011 Ot V45.82 PERCUTANEOUS TRANSLUM CORON ANGIOPLASTY 12/30/2011 Ot V58.63 LONG-TERM( CURRENT)USE OF ANTIPLATELET/AN 12/30/2011 Ot V58.66 LONG-TERM ( CURRENT) USE OF ASPIRIN 12/30/2011 Ot V58.69 OTH MED,LT, CURRENT USE 03/26/2012 Ot 204.10 CHRONIC LYMPHOID LEUKEMIA, [...] Ot V45.81 AORTOCORONARY BYPASS 06/30/2012 Ot V58.63 LONG-TERM( CURRENT)USE OF ANTIPLATELET/AN 06/30/2012 Ot V58.69 OTH MED,LT, CURRENT USE 11/12/2012 Ot 204.10 CHRONIC LYMPHOID LEUKEMIA, W/O MENTION A 11/12/2012 Ot 280.9 IRON DEFIC ANEMIA NOS 11/12/2012 Ot 414.00 CORON ATHEROSCLER NOS TYPE VESSEL, NATIV 11/12/2012 Ot 530.81 ESOPHAGEAL REFLUX 11/12/2012 Ot 564.00 UNSPEC CONSTIPATION 11/12/2012 Ot 719.46 JOINT PAIN-L /LEG 11/12/2012 Ot 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 JOINT REPLACEMENT STATUS 11/12/2012 Ot V43.65 KNEE JOINT REPLACEMENT STATUS 11/12/2012 Ot V45.81 AORTOCORONARY BYPASS 11/12/2012 Ot V58.69 OTH MED,LT, CURRENT USE 12/08/2012 Ot 414.01 CORONARY ATHEROSCLEROSIS OF [place] CORON 12/08/2012 Ot 785.1 PALPITATIONS 03/09/2013 Ot 204.10 CHRONIC LYMPHOID LEUKEMIA, W/O MENTION A 03/09/2013 Ot 280.9 IRON DEFIC ANEMIA NOS 03/09/2013 Ot 414.00 CORON ATHEROSCLER NOS TYPE VESSEL, NATIV 03/09/2013 Ot 530.81 ESOPHAGEAL REFLUX 03/09/2013 Ot V45.81 AORTOCORONARY BYPASS 03/09/2013 Ot V58.69 OTH MED,LT, CURRENT USE 07/06/2013 WILL MEHTA MD Ot 204.10 [...] Ot E000.8 OTHER EXTERNAL CAUSE STATUS 09/27/2013 AWA HOOPER MD Ot E849.[address]/HIGHWAY 09/27/2013 AWA [...] Ot V45.81 AORTOCORONARY BYPASS 12/08/2013 WILL MEHTA MD, Ot V58.69 OTH MED,LT,CURRENT USE 01/08/2014 TINO [...] Ot V45.81 AORTOCORONARY BYPASS 03/09/2014 WILL MEHTA MD, Ot V58.69 OTH MED,LT,CURRENT USE 07/12/2014 WILL [...] 11/01/2014 JANINE LAU, WILL Ot 530.81 11/01/2014 JANINE LAU, WILL Ot V45.81 11/01/2014 JANINE LAU, WILL Ot [...] LAU, WILL Ot 530.81 12/21/2014 JANINE LAU, FRANCHES[place]-JOSEFA Ot V45.81 12/21/2014 JANINE LAU, [place]-JOSEFA Ot V58.69 12/22/2014 JANINE LAU, WILL Ot 204.10 12/22/2014 JANINE LAU, [place]-JOSEFA Ot 280.9 12/22/2014 JANINE LAU, [place]-JOSEFA Ot 414.00 12/22/2014 JANINE LAU, [place]-JOSEFA Ot 530.81 12/22/2014 JANINE LAU, WILL Ot V45.81 12/22/2014 JANINE LAU, [place]-JOSEFA Ot V58.69 01/20/2015 JANINE LAU, WILL Ot 204.10 01/20/2015 JANINE LAU, WILL Ot 280.9 01/20/2015 JANINE LAU, WILL Ot 414.00 01/20/2015 JANINE LAU, WILL Ot 530.81 01/20/2015 JANINE LAU, WILL Ot V45.81 01/20/2015 JANINE LAU, WILL Ot V58.69 01/20/2015 JANINE LAU, WILL Ot 204.10 01/20/2015 JANINE LAU, [place]-JOSEFA Ot 280.9 01/20/2015 JANINE LAU, WILL Ot 414.00 01/20/2015 JANINE LAU, WILL Ot 530.81 01/20/2015 JANINE LAU, [place]-JOSEFA Ot V45.81 01/20/2015 JANINE LAU, WILL Ot [...] LAU, WILL Ot 204.10 04/27/2015 JANINE LAU, PR[place]-JOSEFA Ot [...] 05/04/2015 JANINE LAU, PRITCH[place]-JOSEFA Ot V58.69 05/12/2015 JANIEN LAU, PRITCH[place]-JOSEFA Ot 204.10 05/12/2015 JANINE LAU, [...] [place] Ot V58.69 06/03/2015 DOAN, HILAH S EXCHANGE ENGINEER Ot 204.10 06/03/2015 DOAN, HILAH S EXCHANGE ENGINEER Ot 285.9 06/03/2015 DOAN, HILAH S EXCHANGE ENGINEER Ot 414.00 06/03/2015 DOAN, HILAH S EXCHANGE ENGINEER Ot 530.81 06/03/2015 DOAN, HILAH S EXCHANGE ENGINEER Ot V45.81 06/03/2015 DOAN, HILAH S EXCHANGE ENGINEER Ot V58.69 06/10/2015 DOAN, HILAH S EXCHANGE ENGINEER Ot 204.10 06/10/2015 DOAN, HILAH S EXCHANGE ENGINEER Ot 285.9 06/10/2015 DOAN, HILAH S EXCHANGE ENGINEER Ot 414.00 06/10/2015 DOAN, HILAH S EXCHANGE ENGINEER Ot 530.81 06/10/2015 DOAN, HILAH S EXCHANGE ENGINEER Ot V45.81 06/10/2015 DOAN, HILAH S EXCHANGE ENGINEER Ot V58.69 06/24/2015 JANINE LAU, WILL Ot 204.10 06/24/2015 JANINE LAU, [place]-JOSEFA Ot 280.9 06/24/2015 JANINE LAU, [place]-JOSEFA Ot 414.00 06/24/2015 JANINE LAU, PRITCH[place]-JOSEFA Ot 530.81 06/24/2015 JANINE LAU, [place]-JOSEFA Ot [...] JANINE LAU, WILL Ot 414.00 08/04/2015 JANINE LAU, WILL Ot 530.81 08/04/2015 JANINE LAU, WILL Ot V45.81 08/04/2015 JANINE LAU, WILL Ot V58.69 08/16/2015 JANINE LAU, WILL Ot 204.10 08/16/2015 JANINE LAU, WILL Ot 280.9 08/16/2015 JANINE LAU, WILL Ot 414.00 08/16/2015 JANINE LAU, WILL Ot 530.81 08/16/2015 JANINE LAU, WILL Ot [...] JANINE LAU, WILL Ot 530.81 09/20/2015 JANINE LUA, WILL Ot V45.81 09/20/2015 JANINE LAU, WILL Ot V58.69 10/25/2015 JANINE LAU, TEMOJOSEFA Ot 204.10 10/25/2015 JANINE LAU, WILL Ot 280.9 10/25/2015 JANINE LAU, WILL Ot 414.00 10/25/2015 JANINE LAU, WILL Ot 530.81 10/25/2015 JANINE LAU, WILL Ot V45.81 10/25/2015 JANINE LAU, WILL Ot V58.69 11/01/2015 MANNY MEIER Ot C91.10 11/01/2015 JOAN DAVID, MANNY Lofton Ot I10 11/01/2015 MANNY MEIER Ot I25.10 11/01/2015 MANNY MEIER Ot I65.23 11/02/2015 Ot 204.10 11/02/2015 Ot 285.9 11/02/2015 Ot 414.00 11/02/2015 Ot 530.81 11/02/2015 Ot V45.81 11/02/2015 Ot V45.82 11/02/2015 Ot V58.63 11/02/2015 Ot V58.66 11/02/2015 Ot V58.69 11/02/2015 Ot 414.01 11/02/2015 Ot 785.1 11/02/2015 MANNY MEIER Ot C91.10 11/02/2015 MANNY MEIER Ot I10 11/02/2015 JOAN DAVID, MANNY Lofton Ot I25.10 11/02/2015 JOAN DAVID, MANNY [place] Ot I65.23 11/07/2015 ELISABETH ARAYA MD, Ot C91.10 CHRONIC LYMPHOCYTIC LEUK OF B-CELL TYPE 11/07/2015 ELISABETH ARAYA MD, Ot D64.9 ANEMIA, UNSPECIFIED 11/07/2015 ELISABETH ARAYA MD, Ot E78.5 HYPERLIPIDEMIA, UNSPECIFIED 11/07/2015 ELISABETH ARAYA MD Ot I10 ESSENTIAL (PRIMARY) HYPERTENSION 11/07/2015 ELISABETH ARAYA MD, Ot I25.10 ATHSCL HEART DISEASE OF [place] CORONARY 11/07/2015 ELISABETH ARAYA MD, Ot 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10 11/24/2015 KIM-JUS PA, MANNY K Ot I65.23 11/24/2015 KIM-JUS PA, MANNY K Ot C91.10 11/24/2015 KIM-JUS PA, MANNY K Ot I10 11/24/2015 KIM-JUS PA, MANNY K Ot I25.10 11/24/2015 KIM-JUS PA, MANNY K Ot I65.23 11/28/2015 KIM-JUS PA, MANNY K Ot C91.10 11/28/2015 KIM-JUS PA, MANNY K Ot I10 11/28/2015 KIM-JUS PA, MANNY K Ot I25.10 11/28/2015 KIM-JUS PA, MANNY K Ot I65.23 11/29/2015 KIM-JUS PA, MANNY K Ot C91.10 11/29/2015 KIM-JUS PA, MANNY K Ot I10 11/29/2015 KIM-JUS PA, MANNY K Ot I25.10 11/29/2015 KIM-JUS PA, MANNY K Ot I65.23 12/19/2015 WILL MEHTA MD Ot C91.10 CHRONIC LYMPHOCYTIC LEUK OF B-CELL TYPE 12/19/2015 WILL MEHTA MD Ot D50.9 IRON DEFICIENCY ANEMIA, UNSPECIFIED 12/19/2015 WILL MEHTA MD Ot I25.10 ATHSCL HEART DISEASE OF [place] CORONARY 12/19/2015 WILL MEHTA MD Ot K21.9 GASTRO-ESOPHAGEAL REFLUX DISEASE WITHOUT 12/19/2015 WILL MEHTA MD Ot Z79.899 OTHER CARE HOME (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 THERAPY 12/19/2015 WILL MEHTA MD [...] 02/02/2016 TINO KAPOOR DO Ot 414.00 02/02/2016 GRANT DO, TINO D Ot 574.20 02/02/2016 GRANT DO, TINO D Ot V72.63 02/02/2016 GRANT DO, TINO D Ot V74.8 02/02/2016 UMAIR LAU, PAIGE R Ot 729.5 02/02/2016 DOANKRISSY Conley EXCHANGE ENGINEER Ot 204.10 02/02/2016 DOANKRISSY Conley S EXCHANGE ENGINEER Ot 285.9 02/02/2016 DOANKRISSY S EXCHANGE ENGINEER Ot 414.00 02/02/2016 DOANKRISSY S EXCHANGE ENGINEER Ot 530.81 02/02/2016 DOANKRISSY S EXCHANGE ENGINEER Ot V45.81 02/02/2016 DOANKRISSY S EXCHANGE ENGINEER Ot V58.69 02/02/2016 JOAN PA, MANNY K Ot C91.10 02/02/2016 JOAN PA, MANNY K Ot I10 02/02/2016 JULIO-JUS PA, MANNY K Ot I25.10 02/02/2016 KIM-JUS PA, MANNY K Ot I65.23 02/02/2016 KIM-JUS PA, MANNY K Ot C91.10 02/02/2016 KIM-JUS PA, MANNY K Ot I10 02/02/2016 KIM-JUS PA, MANNY K Ot I25.10 02/02/2016 KIM-JUS PA, MANNY K Ot I65.23 02/02/2016 KIM-JUS PA, MANNY K Ot C91.10 02/02/2016 KIM-JUS PA, MANNY K Ot I10 02/02/2016 KIM-JUS PA, MANNY K Ot I25.10 02/02/2016 KIM-JUS PA, MANNY K Ot I65.23 02/02/2016 JANINE [...] DAVID, MANNY Lofton Ot I10 03/07/2016 JANINE ALU, WILL Ot C91.10 03/07/2016 JANINE LAU, WILL Ot D50.9 03/07/2016 JANINE LAU, WILL Ot I25.10 03/07/2016 JANINE LAU, WILL Ot K21.9 03/07/2016 JANINE LAU, WILL Ot Z79.899 03/07/2016 JANINE LAU, WILL Ot Z95.1 04/16/2016 JANINE LAU, WILL Hightower C91.10 CHRONIC LYMPHOCYTIC LEUK OF B-CELL TYPE 04/16/2016 JANINE LAU, WILL Ot D50.9 IRON DEFICIENCY ANEMIA, UNSPECIFIED 04/16/2016 JANINE LAU, WILL Hightower I25.10 ATHSCL HEART DISEASE OF [place] CORONARY 04/16/2016 JANINE LAU, WILL Ot K21.9 GASTRO-ESOPHAGEAL REFLUX DISEASE WITHOUT 04/16/2016 JANINE LAU, WILL Ot Z79.899 OTHER RESIDENCY PROGRAM COORDINATOR (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 THERAPY 04/16/2016 JANINE LAU, WILL Ot Z95.1 PRESENCE OF AORTOCORONARY BYPASS GRAFT 04/17/2016 PAIGE BLOCK MD Ot S20.302A UNSP SUPERFICIAL INJURIES OF LEFT FRONT 04/17/2016 PAIGE BLOCK MD Ot W19.XXXA UNSPECIFIED FALL, INITIAL ENCOUNTER 04/17/2016 SEGLIE MD, PAIGE R Ot Y99.8 OTHER EXTERNAL CAUSE STATUS 04/17/2016 FRANCISCA BLOCK MDYD R Ot S20.302A UNSP SUPERFICIAL INJURIES OF LEFT FRONT 04/17/2016 UMAIR LAU PAIGE R Ot W19.XXXA UNSPECIFIED FALL, INITIAL ENCOUNTER 04/17/2016 PAIGE BLOCK MD R Ot Y99.8 OTHER EXTERNAL CAUSE STATUS 04/25/2016 WILL MEHTA MD, Ot C91.10 CHRONIC LYMPHOCYTIC LEUK OF B-CELL TYPE 04/25/2016 WILL MEHTA MD Ot D50.9 IRON DEFICIENCY ANEMIA, UNSPECIFIED 04/25/2016 WILL MEHTA MD, Ot I25.10 ATHSCL HEART DISEASE OF [place] CORONARY 04/25/2016 WILL MEHTA MD, Ot K21.9 GASTRO-ESOPHAGEAL REFLUX DISEASE WITHOUT 04/25/2016 WILL MEHTA MD, Ot Z79.899 OTHER CARE HOME (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 THERAPY 04/25/2016 WILL MEHTA MD, Ot Z95.1 PRESENCE OF AORTOCORONARY BYPASS GRAFT 05/11/2016 PIAGE BLOCK MD R Ot S20.302A UNSP SUPERFICIAL INJURIES OF LEFT FRONT 05/11/2016 FRANCISCA BLOCK MDYD R Ot W19.XXXA UNSPECIFIED FALL, INITIAL ENCOUNTER 05/11/2016 PAIGE BLOCK MD R Ot Y99.8 OTHER EXTERNAL CAUSE STATUS 05/23/2016 MONIKA DARBY APRN Ot R06.00 DYSPNEA, UNSPECIFIED 06/01/2016 MONIKA DARBY APRN Ot R06.02 SHORTNESS OF BREATH 06/04/2016 WILL MEHTA MD, Ot C91.10 CHRONIC LYMPHOCYTIC LEUK OF B-CELL TYPE 06/04/2016 WILL MEHTA MD, Ot D50.9 IRON DEFICIENCY ANEMIA, UNSPECIFIED 06/04/2016 WILL MEHTA MD, Ot I25.10 ATHSCL HEART DISEASE OF [place] CORONARY 06/04/2016 WILL MEHTA MD, Ot K21.9 GASTRO-ESOPHAGEAL REFLUX DISEASE WITHOUT 06/04/2016 WILL MEHTA MD Ot Z79.899 OTHER RESIDENCY PROGRAM COORDINATOR (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 THERAPY 06/04/2016 WILL MEHTA MD Ot Z95.1 PRESENCE OF AORTOCORONARY BYPASS GRAFT 06/07/2016 WILL MEHTA MD, Ot C91.10 CHRONIC LYMPHOCYTIC LEUK OF B-CELL TYPE 06/07/2016 WILL MEHTA MD Ot D50.9 IRON DEFICIENCY ANEMIA, UNSPECIFIED 06/07/2016 WILL MEHTA MD, Ot I25.10 ATHSCL HEART DISEASE OF [place] CORONARY 06/07/2016 WILL MEHTA MD, Ot K21.9 GASTRO-ESOPHAGEAL REFLUX DISEASE WITHOUT 06/07/2016 WILL MEHTA MD, Ot Z79.899 OTHER CARE HOME (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 THERAPY 06/07/2016 WILL MEHTA MD, [...] Ot M54.5 LOW BACK PAIN 06/29/2016 LASHAUN ELISA MD Ot M47.816 SPONDYLOSIS W/O MYELOPATHY OR RADICULOPA 07/01/2016 PAIGE BLOCK MD Ot C91.10 CHRONIC LYMPHOCYTIC LEUK OF B-CELL TYPE 07/01/2016 PAIGE BLOCK MD Ot D64.9 ANEMIA, UNSPECIFIED 07/01/2016 PAIGE BLOCK MD Ot E66.9 OBESITY, UNSPECIFIED 07/01/2016 PAIGE BLOCK MD Ot E78.5 HYPERLIPIDEMIA, UNSPECIFIED 07/01/2016 PAIGE BLOCK MD Ot I10 ESSENTIAL (PRIMARY) HYPERTENSION 07/01/2016 UMAIR LAU, PAIGE Forte Ot I25.10 ATHSCL HEART DISEASE OF [place] CORONARY 07/01/2016 UMAIR LAU, PAIGE Forte Ot I47.1 SUPRAVENTRICULAR TACHYCARDIA 07/01/2016 UMAIR LAU, PAIGE Forte Ot K21.9 GASTRO-ESOPHAGEAL REFLUX DISEASE WITHOUT 07/01/2016 UMAIR LAU, PAIGE Forte Ot R60.0 LOCALIZED EDEMA 07/01/2016 UMAIR LAU, PAIGE Forte Ot Z68.39 BODY MASS INDEX (BMI) 39.0-39.9, ADULT 07/01/2016 UMAIR LAU, PAIGE Forte Ot Z79.899 OTHER RESIDENCY PROGRAM COORDINATOR (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 THERAPY 07/01/2016 UMAIR LAU, PAIGE [...] PERCUTANEOUS TRANSLUM CORON ANGIOPLASTY 07/03/2016 Ot V58.63 LONG-TERM( CURRENT)USE OF ANTIPLATELET/AN 07/03/2016 Ot V58.66 LONG-TERM ( CURRENT) USE OF ASPIRIN 07/03/2016 Ot V58.69 OTH MED,LT, CURRENT USE 07/03/2016 Ot 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 07/03/2016 Ot 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 [...] NOS 07/03/2016 Ot 414.01 CORONARY ATHEROSCLEROSIS OF [place] CORON 07/03/2016 Ot 285.9 ANEMIA NOS 07/03/2016 Ot 285.9 ANEMIA NOS 07/03/2016 Ot 285.9 ANEMIA NOS 07/03/2016 Ot 204.10 CHRONIC LYMPHOID LEUKEMIA, W/O MENTION A 07/03/2016 Ot 611.72 LUMP OR MASS IN BREAST 07/03/2016 Ot 272.4 HYPERLIPIDEMIA NEC/NOS 07/03/2016 Ot 414.00 CORON ATHEROSCLER NOS TYPE VESSEL, NATIV 07/03/2016 Ot 272.4 HYPERLIPIDEMIA NEC/NOS 07/03/2016 Ot 401.9 HYPERTENSION NOS 07/03/2016 Ot 414.01 CORONARY ATHEROSCLEROSIS OF [place] CORON 07/03/2016 Ot 414.01 CORONARY ATHEROSCLEROSIS OF [place] CORON 07/03/2016 Ot 785.1 PALPITATIONS 07/03/2016 UMAIR LUA, PAIGE R Ot 724.2 LUMBAGO 07/03/2016 UMAIR [...] OTH SCREEN MAMMO-MALIGN NEOPLASM OF [place] 07/03/2016 UMAIR LAU, PAIGE R Ot 574.20 CHOLELITHIASIS NOS 07/03/2016 TINO KAPOOR DO Ot 414.00 CORON ATHEROSCLER NOS TYPE VESSEL, NATIV 07/03/2016 TINO KAPOOR DO Ot 574.20 CHOLELITHIASIS NOS 07/03/2016 TINO KAPOOR DO Ot V72.63 PRE-PROCEDURAL LABORATORY EXAMINATION 07/03/2016 TINO KAPOOR DO Ot V74.8 SCREEN-BACTERIAL DIS NEC 07/03/2016 PAIGE BLOCK MD R Ot 729.5 PAIN IN LIMB 07/03/2016 KRISSY DOAN EXCHANGE ENGINEER Ot 204.10 CHRONIC LYMPHOID LEUKEMIA, W/O MENTION A 07/03/2016 KRISSY DOAN EXCHANGE ENGINEER Ot 285.9 ANEMIA NOS 07/03/2016 KRISSY DOAN EXCHANGE ENGINEER Ot 414.00 CORON ATHEROSCLER NOS TYPE VESSEL, NATIV 07/03/2016 KRISSY DOAN EXCHANGE ENGINEER Ot 530.81 ESOPHAGEAL REFLUX 07/03/2016 KRISSY DOAN EXCHANGE ENGINEER Ot V45.81 AORTOCORONARY BYPASS 07/03/2016 DOANKRISSY Conley EXCHANGE ENGINEER Ot V58.69 OT MED,LT,CURRENT USE 07/03/2016 MANNY MEIER Ot C91.10 CHRONIC LYMPHOCYTIC LEUK OF B-CELL TYPE 07/03/2016 MANNY MEIER Ot I10 ESSENTIAL (PRIMARY) HYPERTENSION 07/03/2016 MANNY MEIER Ot I25.10 ATHSCL HEART DISEASE OF [place] CORONARY 07/03/2016 MANNY MEIER Ot 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 BILATERAL [place] 07/03/2016 MANNY MEIER Ot C91.10 CHRONIC LYMPHOCYTIC LEUK OF B-CELL TYPE 07/03/2016 MANNY MEIER Ot I10 ESSENTIAL (PRIMARY) HYPERTENSION 07/03/2016 MANNY MEIER Ot I25.10 ATHSCL HEART DISEASE OF [place] CORONARY 07/03/2016 MANNY MEIER Ot 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 BILATERAL [place] 07/03/2016 MANNY MEIER Ot C91.10 CHRONIC LYMPHOCYTIC LEUK OF B-CELL TYPE 07/03/2016 MANNY MEIER Ot I10 ESSENTIAL (PRIMARY) HYPERTENSION 07/03/2016 MANNY MEIER Ot I25.10 ATHSCL HEART DISEASE OF [place] CORONARY 07/03/2016 MANNY MEIER Ot 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 BILATERAL [place] 07/03/2016 PAIGE BLOCK MD Ot R05 COUGH 07/03/2016 MANNY MEIER Ot I10 ESSENTIAL (PRIMARY) HYPERTENSION 07/03/2016 PAIGE BLOCK MD Ot S20.302A UNSP SUPERFICIAL INJURIES OF LEFT FRONT 07/03/2016 PAIGE BLOCK MD Ot W19.XXXA UNSPECIFIED FALL, INITIAL ENCOUNTER 07/03/2016 UMAIR LAU, PAIGE Forte Ot Y99.8 OTHER EXTERNAL CAUSE STATUS 07/03/2016 MONIKA DARBY APRN Ot R06.02 SHORTNESS OF BREATH 07/03/2016 MONIKA DARBY APRN Ot J84.10 PULMONARY FIBROSIS, UNSPECIFIED 07/03/2016 MONIKA DARBY APRN Ot S22.41XA MULTIPLE FRACTURES OF RIBS, RIGHT SIDE, 07/03/2016 MONIKA DARBY APRN Ot X52.XXXA PROLONGED STAY IN WEIGHTLESS ENVIRONMENT 07/03/2016 MONIKA DARBY APRN Ot Y99.8 OTHER EXTERNAL CAUSE STATUS 07/03/2016 WILL MHETA MD, Ot C91.10 CHRONIC LYMPHOCYTIC LEUK OF B-CELL TYPE 07/03/2016 WILL MEHTA MD, Ot D50.9 IRON DEFICIENCY ANEMIA, UNSPECIFIED 07/03/2016 WILL MEHTA MD, Ot I25.10 ATHSCL HEART DISEASE OF [place] CORONARY 07/03/2016 WILL MEHTA MD Ot K21.9 GASTRO-ESOPHAGEAL REFLUX DISEASE WITHOUT 07/03/2016 WILL MEHTA MD, Ot Z79.899 OTHER RESIDENCY PROGRAM COORDINATOR (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 THERAPY 07/03/2016 WILL MEHTA MD, Ot Z95.1 PRESENCE OF AORTOCORONARY BYPASS GRAFT 07/03/2016 LASHAUN ELIAS MD Ot M54.5 LOW BACK PAIN 07/03/2016 ELISABETH ARAYA MD, Ot C91.10 CHRONIC LYMPHOCYTIC LEUK OF B-CELL TYPE 07/03/2016 ELISABETH ARAYA MD Ot E66.9 OBESITY, UNSPECIFIED 07/03/2016 ELISABETH ARAYA MD Ot E78.5 HYPERLIPIDEMIA, UNSPECIFIED 07/03/2016 ELISABETH ARAYA MD Ot I10 ESSENTIAL (PRIMARY) HYPERTENSION 07/03/2016 ELISABETH ARAYA MD, Ot I25.10 ATHSCL HEART DISEASE OF [place] CORONARY 07/03/2016 ELISABETH ARAYA MD, Ot I25.810 [...] PERCUTANEOUS TRANSLUM CORON ANGIOPLASTY 07/03/2016 Ot V58.63 LONG-TERM( CURRENT)USE OF ANTIPLATELET/AN 07/03/2016 Ot V58.66 LONG-TERM ( CURRENT) USE OF ASPIRIN 07/03/2016 Ot V58.69 OTH MED,LT, CURRENT USE 07/03/2016 Ot 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 07/03/2016 Ot 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 [...] NOS 07/03/2016 Ot 414.01 CORONARY ATHEROSCLEROSIS OF [place] CORON 07/03/2016 Ot 285.9 ANEMIA NOS 07/03/2016 Ot 285.9 ANEMIA NOS 07/03/2016 Ot 285.9 ANEMIA NOS 07/03/2016 Ot 204.10 CHRONIC LYMPHOID LEUKEMIA, W/O MENTION A 07/03/2016 Ot 611.72 LUMP OR MASS IN BREAST 07/03/2016 Ot 272.4 HYPERLIPIDEMIA NEC/NOS 07/03/2016 Ot 414.00 CORON ATHEROSCLER NOS TYPE VESSEL, NATIV 07/03/2016 Ot 272.4 HYPERLIPIDEMIA NEC/NOS 07/03/2016 Ot 401.9 HYPERTENSION NOS 07/03/2016 Ot 414.01 CORONARY ATHEROSCLEROSIS OF [place] CORON 07/03/2016 Ot 414.01 CORONARY ATHEROSCLEROSIS OF [place] CORON 07/03/2016 Ot 785.1 PALPITATIONS 07/03/2016 UMAIR [...] OTH SCREEN MAMMO-MALIGN NEOPLASM OF [place] 07/03/2016 FRANCISCA BLOCK MDYD R Ot 574.20 CHOLELITHIASIS NOS 07/03/2016 TINO KAPOOR DO Ot 414.00 CORON ATHEROSCLER NOS TYPE VESSEL, NATIV 07/03/2016 TINO KAPOOR DO Ot 574.20 CHOLELITHIASIS NOS 07/03/2016 KAPOOR TINO MITCHELL Ot V72.63 PRE-PROCEDURAL LABORATORY EXAMINATION 07/03/2016 TINO KAPOOR DO Ot V74.8 SCREEN-BACTERIAL DIS NEC 07/03/2016 UMAIR LAU, PAIGE R Ot 729.5 PAIN IN LIMB 07/03/2016 KRISSY DOANP Ot 204.10 CHRONIC LYMPHOID LEUKEMIA, W/O MENTION A 07/03/2016 KRISSY DOAN EXCHANGE ENGINEER Ot 285.9 ANEMIA NOS 07/03/2016 KRISSY DOANP Ot 414.00 CORON ATHEROSCLER NOS TYPE VESSEL, NATIV 07/03/2016 KRISSY DOANP Ot 530.81 ESOPHAGEAL REFLUX 07/03/2016 KRISSY DOANP Ot V45.81 AORTOCORONARY BYPASS 07/03/2016 KRISSY DOAN EXCHANGE ENGINEER Ot V58.69 OT MED,LT,CURRENT USE 07/03/2016 MANNY MEIER Ot C91.10 CHRONIC LYMPHOCYTIC LEUK OF B-CELL TYPE 07/03/2016 MANNY MEIER Ot I10 ESSENTIAL (PRIMARY) HYPERTENSION 07/03/2016 JOAN DAVID MANNY K Ot I25.10 ATHSCL HEART DISEASE OF [place] CORONARY 07/03/2016 JOAN DAVID MANNY K Ot 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 BILATERAL [place]OME[place] 07/03/2016 JOAN DAVID MANNY K Ot C91.10 CHRONIC LYMPHOCYTIC LEUK OF B-CELL TYPE 07/03/2016 JOAN DAVID MANNY K Ot I10 ESSENTIAL (PRIMARY) HYPERTENSION 07/03/2016 JOAN DAVID MANNY K Ot I25.10 ATHSCL HEART DISEASE OF [place] CORONARY 07/03/2016 JOAN DAVID MANNY K Ot 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 BILATERAL [place] 07/03/2016 JOAN DAVID MANNY K Ot C91.10 CHRONIC LYMPHOCYTIC LEUK OF B-CELL TYPE 07/03/2016 JOAN DAVID MANNY K Ot I10 ESSENTIAL (PRIMARY) HYPERTENSION 07/03/2016 JOAN DAVID MANNY K Ot I25.10 ATHSCL HEART DISEASE OF [place] CORONARY 07/03/2016 JOAN DAVID MANNY K Ot 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 BILATERAL [place] 07/03/2016 PAIGE BLOCK MD Ot R05 COUGH 07/03/2016 MANNY MEIER K Ot I10 ESSENTIAL (PRIMARY) HYPERTENSION 07/03/2016 [...] IRON DEFICIENCY ANEMIA, UNSPECIFIED 07/03/2016 WILL MEHTA MD Ot I25.10 ATHSCL HEART DISEASE OF [place] CORONARY 07/03/2016 WILL MEHTA MD Ot K21.9 GASTRO-ESOPHAGEAL REFLUX DISEASE WITHOUT 07/03/2016 WILL MEHTA MD Ot Z79.899 OTHER RESIDENCY PROGRAM COORDINATOR (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 THERAPY 07/03/2016 WILL MEHTA MD [...] PERCUTANEOUS TRANSLUM CORON ANGIOPLASTY 07/11/2016 Ot V58.63 LONG-TERM( CURRENT)USE OF ANTIPLATELET/AN 07/11/2016 Ot V58.66 LONG-TERM ( CURRENT) USE OF ASPIRIN 07/11/2016 Ot V58.69 OTH MED,LT, CURRENT USE 07/11/2016 Ot 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 07/11/2016 Ot 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 [...] NOS 07/11/2016 Ot 414.01 CORONARY ATHEROSCLEROSIS OF [place] CORON 07/11/2016 Ot 285.9 ANEMIA NOS 07/11/2016 Ot 285.9 ANEMIA NOS 07/11/2016 Ot 285.9 ANEMIA NOS 07/11/2016 Ot 204.10 CHRONIC LYMPHOID LEUKEMIA, W/O MENTION A 07/11/2016 Ot 611.72 LUMP OR MASS IN BREAST 07/11/2016 Ot 272.4 HYPERLIPIDEMIA NEC/NOS 07/11/2016 Ot 414.00 CORON ATHEROSCLER NOS TYPE VESSEL, NATIV 07/11/2016 Ot 272.4 HYPERLIPIDEMIA NEC/NOS 07/11/2016 Ot 401.9 HYPERTENSION NOS 07/11/2016 Ot 414.01 CORONARY ATHEROSCLEROSIS OF [place] CORON 07/11/2016 Ot 414.01 CORONARY ATHEROSCLEROSIS OF [place] CORON 07/11/2016 Ot 785.1 PALPITATIONS 07/11/2016 UMAIR [...] 729.5 PAIN IN LIMB 07/11/2016 KRISSY DOAN EXCHANGE ENGINEER Ot 204.10 CHRONIC LYMPHOID LEUKEMIA, W/O MENTION A 07/11/2016 KRISSY DOAN EXCHANGE ENGINEER Ot 285.9 ANEMIA NOS 07/11/2016 KRISSY DOAN EXCHANGE ENGINEER Ot 414.00 CORON ATHEROSCLER NOS TYPE VESSEL, NATIV 07/11/2016 KRISSY DOAN EXCHANGE ENGINEER Ot 530.81 ESOPHAGEAL REFLUX 07/11/2016 KRISSY DOAN EXCHANGE ENGINEER Ot V45.81 AORTOCORONARY BYPASS 07/11/2016 KRISSY DOAN EXCHANGE ENGINEER Ot V58.69 OT MED,LT,CURRENT USE 07/11/2016 MANNY MEIER Ot C91.10 CHRONIC LYMPHOCYTIC LEUK OF B-CELL TYPE 07/11/2016 MANNY MEIER Ot I10 ESSENTIAL (PRIMARY) HYPERTENSION 07/11/2016 MANNY MEIER Ot I25.10 ATHSCL HEART DISEASE OF [place] CORONARY 07/11/2016 MANNY MEIER Ot 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 [place]IL[place]AL [place] 07/11/2016 MANNY MEIER Ot C91.10 CHRONIC LYMPHOCYTIC LEUK OF B-CELL TYPE 07/11/2016 MANNY MEIER Ot I10 ESSENTIAL (PRIMARY) HYPERTENSION 07/11/2016 MANNY MEIER Ot I25.10 ATHSCL HEART DISEASE OF [place] CORONARY 07/11/2016 MANNY MEIER Ot 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 BILATERAL [place] 07/11/2016 MANNY MEIER Ot C91.10 CHRONIC LYMPHOCYTIC LEUK OF B-CELL TYPE 07/11/2016 MANNY MEIER Ot I10 ESSENTIAL (PRIMARY) HYPERTENSION 07/11/2016 MANNY MEIER Ot I25.10 ATHSCL HEART DISEASE OF [place] CORONARY 07/11/2016 MANNY MEIER Ot 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 [place]AL [place] 07/11/2016 PAIGE BLOCK MD, Ot R05 COUGH 07/11/2016 MANNY MEIER Ot [...] MD, Ot I25.10 ATHSCL HEART DISEASE OF [place] CORONARY 07/11/2016 WILL MEHTA MD Ot K21.9 GASTRO-ESOPHAGEAL REFLUX DISEASE WITHOUT 07/11/2016 WILL MEHTA MD, Ot Z79.899 OTHER RESIDENCY PROGRAM COORDINATOR (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 THERAPY 07/11/2016 WILL MEHTA MD, [...] MD Ot I25.10 ATHSCL HEART DISEASE OF [place] CORONARY 07/17/2016 WILL MEHTA MD Ot K21.9 GASTRO-ESOPHAGEAL REFLUX DISEASE WITHOUT 07/17/2016 WILL MEHTA MD Ot Z79.899 OTHER RESIDENCY PROGRAM COORDINATOR (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 THERAPY 07/17/2016 WILL MEHTA MD Ot Z95.1 PRESENCE OF AORTOCORONARY BYPASS GRAFT 07/17/2016 LASHAUN ELIAS MD Ot M54.5 LOW BACK PAIN 07/23/2016 MONIKA DARBY APRN Ot R06.02 SHORTNESS OF BREATH 07/26/2016 WILL MEHTA MD, Ot C91.10 CHRONIC LYMPHOCYTIC LEUK OF B-CELL TYPE 07/26/2016 WILL MEHTA MD Ot D50.9 IRON DEFICIENCY ANEMIA, UNSPECIFIED 07/26/2016 WILL MEHTA MD Ot I25.10 ATHSCL HEART DISEASE OF [place] CORONARY 07/26/2016 WILL MEHTA MD, Ot K21.9 GASTRO-ESOPHAGEAL REFLUX DISEASE WITHOUT 07/26/2016 WILL MEHTA MD, Ot Z79.899 OTHER CARE HOME (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 THERAPY 07/26/2016 WILL MEHTA MD Ot Z95.1 PRESENCE OF AORTOCORONARY BYPASS GRAFT 07/26/2016 LASHAUN ELIAS MD Ot M54.5 LOW BACK PAIN 08/13/2016 ELISABETH ARAYA MD, Ot C91.10 CHRONIC LYMPHOCYTIC LEUK OF B-CELL TYPE 08/13/2016 ELISABETH ARAYA MD Ot D64.9 ANEMIA, UNSPECIFIED 08/13/2016 ELISABETH ARAYA MD Ot E78.5 HYPERLIPIDEMIA, UNSPECIFIED 08/13/2016 ELISABETH ARAYA MD Ot I10 ESSENTIAL (PRIMARY) HYPERTENSION 08/13/2016 ELISABETH ARAYA MD Ot I25.10 ATHSCL HEART DISEASE OF [place] CORONARY 08/13/2016 ELISABETH ARAYA MD Ot 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 08/13/2016 ELISABETH ARAYA MD Ot I65.29 OCCLUSION AND STENOSIS OF UNSPECIFIED CA 08/13/2016 ELISABETH ARAYA MD Ot R94.39 ABNORMAL RESULT OF OTHER CARDIOVASCULAR 08/13/2016 ELISABETH ARAYA MD, Ot Z79.02 CARE HOME (CURRENT) USE OF ANTITHROMBOTI 08/13/2016 ELISABETH ARAYA MD, Ot Z95.1 PRESENCE OF AORTOCORONARY BYPASS GRAFT 08/13/2016 ELISABETH ARAYA MD, Ot Z98.61 CORONARY ANGIOPLASTY STATUS 08/16/2016 ELISABETH ARAYA MD Ot R00.2 PALPITATIONS 08/22/2016 ELISABETH ARAYA MD, Ot R00.2 PALPITATIONS 08/31/2016 WILL MEHTA MD, Ot C91.10 CHRONIC LYMPHOCYTIC LEUK OF B-CELL TYPE 08/31/2016 WILL MEHTA MD, Ot D50.9 IRON DEFICIENCY ANEMIA, UNSPECIFIED 08/31/2016 WILL MEHTA MD, Ot I25.10 ATHSCL HEART DISEASE OF [place] CORONARY 08/31/2016 WILL MEHTA MD Ot K21.9 GASTRO-ESOPHAGEAL REFLUX DISEASE WITHOUT 08/31/2016 WILL MEHTA MD Ot Z79.899 OTHER CARE HOME (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 THERAPY 08/31/2016 WILL MEHTA MD, Ot Z95.1 PRESENCE OF AORTOCORONARY BYPASS GRAFT 09/13/2016 WILL MEHTA MD, Ot C91.10 CHRONIC LYMPHOCYTIC LEUK OF B-CELL TYPE 09/13/2016 WILL MEHTA MD, Ot D50.9 IRON DEFICIENCY ANEMIA, UNSPECIFIED 09/13/2016 WILL MEHTA MD Ot I25.10 ATHSCL HEART DISEASE OF [place] CORONARY 09/13/2016 WILL MEHTA MD Ot K21.9 GASTRO-ESOPHAGEAL REFLUX DISEASE WITHOUT 09/13/2016 WILL MEHTA MD Ot Z79.899 OTHER CARE HOME (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 THERAPY 09/13/2016 WILL MEHTA MD Ot Z95.1 PRESENCE OF AORTOCORONARY BYPASS GRAFT 10/01/2016 ELISABETH ARAYA MD Ot R00.2 PALPITATIONS 10/10/2016 ALEXANDRA ALEXANDRA MD Ot I51.7 CARDIOMEGALY 10/10/2016 ALEXANDRA ALEXANDRA MD, Ot M79.622 PAIN IN LEFT UPPER ARM 10/10/2016 ALEXANDRA ALEXANDRA MD Ot R00.0 TACHYCARDIA, UNSPECIFIED 10/10/2016 IBRAHIMA MD, ALEXANDRA D Ot R07.9 CHEST PAIN, UNSPECIFIED 10/10/2016 ALEXANDRA ALEXANDRA MD Ot Z79.82 RESIDENCY PROGRAM COORDINATOR (CURRENT) USE OF ASPIRIN 10/10/2016 ALEXANDRA ALEXANDRA MD Ot Z79.899 OTHER RESIDENCY PROGRAM COORDINATOR (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 THERAPY 10/16/2016 WILL MEHTA MD, Ot C91.10 CHRONIC LYMPHOCYTIC LEUK OF B-CELL TYPE 10/16/2016 WILL MEHTA MD Ot D50.9 IRON DEFICIENCY ANEMIA, UNSPECIFIED 10/16/2016 WILL MEHTA MD Ot I25.10 ATHSCL HEART DISEASE OF [place] CORONARY 10/16/2016 WILL MEHTA MD, Ot K21.9 GASTRO-ESOPHAGEAL REFLUX DISEASE WITHOUT 10/16/2016 WILL MEHTA MD, Ot Z79.899 OTHER RESIDENCY PROGRAM COORDINATOR (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 THERAPY 10/16/2016 WILL MEHTA MD, Ot Z95.1 PRESENCE OF AORTOCORONARY BYPASS GRAFT 10/24/2016 ALEXANDRA ALEXANDRA MD Ot I51.7 CARDIOMEGALY 10/24/2016 ALEXANDRA ALEXANDRA MD Ot M79.622 PAIN IN LEFT UPPER ARM 10/24/2016 ALEXANDRA ALEXANDRA MD Ot R00.0 TACHYCARDIA, UNSPECIFIED 10/24/2016 ALEXANDRA ALEXANDRA MD Ot R07.9 CHEST PAIN, UNSPECIFIED 10/24/2016 ALEXANDRA ALEXANDRA MD Ot Z79.82 RESIDENCY PROGRAM COORDINATOR (CURRENT) USE OF ASPIRIN 10/24/2016 ALEXANDRA ALEXANDRA MD Ot Z79.899 OTHER RESIDENCY PROGRAM COORDINATOR (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 THERAPY 10/24/2016 WILL MEHTA MD, Ot C91.10 CHRONIC LYMPHOCYTIC LEUK OF B-CELL TYPE 10/24/2016 WILL MEHTA MD Ot D50.9 IRON DEFICIENCY ANEMIA, UNSPECIFIED 10/24/2016 WILL MEHTA MD Ot I25.10 ATHSCL HEART DISEASE OF [place] CORONARY 10/24/2016 WILL MEHTA MD Ot K21.9 GASTRO-ESOPHAGEAL REFLUX DISEASE WITHOUT 10/24/2016 WILL MEHTA MD Ot Z79.899 OTHER RESIDENCY PROGRAM COORDINATOR (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 THERAPY 10/24/2016 WILL MEHTA MD Ot Z95.1 PRESENCE OF AORTOCORONARY BYPASS GRAFT 10/25/2016 ALEXANDRA ALEXANDRA MD Ot I51.7 CARDIOMEGALY 10/25/2016 ALEXANDRA ALEXANDRA MD Ot M79.622 PAIN IN LEFT UPPER ARM 10/25/2016 ALEXANDRA ALEXANDRA MD Ot R00.0 TACHYCARDIA, UNSPECIFIED 10/25/2016 ALEXANDRA ALEXANDRA MD Ot R07.9 CHEST PAIN, UNSPECIFIED 10/25/2016 ALEXANDRA ALEXANDRA MD Ot Z79.82 CARE HOME (CURRENT) USE OF ASPIRIN 10/25/2016 ALEXANDRA ALEXANDRA MD Ot Z79.899 OTHER RESIDENCY PROGRAM COORDINATOR (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 THERAPY 10/26/2016 MANNY MEIER Ot E78.2 MIXED HYPERLIPIDEMIA 10/26/2016 MANNY MEIER Ot I10 ESSENTIAL (PRIMARY) HYPERTENSION 10/26/2016 MANNY MEIER Ot I25.10 ATHSCL HEART DISEASE OF [place] CORONARY 10/26/2016 MANNY MEIER Ot 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 BILATERAL [place] 10/26/2016 MANNY MEIER Ot E78.2 MIXED HYPERLIPIDEMIA 10/26/2016 MANNY MEIER Ot I10 ESSENTIAL (PRIMARY) HYPERTENSION 10/26/2016 MANNY MEIER Ot I25.10 ATHSCL HEART DISEASE OF [place] CORONARY 10/26/2016 MANNY MEIER Ot I65.23 OCCLUSION [...] PERCUTANEOUS TRANSLUM CORON ANGIOPLASTY 10/31/2016 Ot V58.63 LONG-TERM( CURRENT)USE OF ANTIPLATELET/AN 10/31/2016 Ot V58.66 LONG-TERM ( CURRENT) USE OF ASPIRIN 10/31/2016 Ot V58.69 OTH MED,LT, CURRENT USE 10/31/2016 Ot 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 10/31/2016 Ot 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 [...] NOS 10/31/2016 Ot 414.01 CORONARY ATHEROSCLEROSIS OF [place] CORON 10/31/2016 Ot 285.9 ANEMIA NOS 10/31/2016 Ot 285.9 ANEMIA NOS 10/31/2016 Ot 285.9 ANEMIA NOS 10/31/2016 Ot 204.10 CHRONIC LYMPHOID LEUKEMIA, W/O MENTION A 10/31/2016 Ot 611.72 LUMP OR MASS IN BREAST 10/31/2016 Ot 272.4 HYPERLIPIDEMIA NEC/NOS 10/31/2016 Ot 414.00 CORON ATHEROSCLER NOS TYPE VESSEL, NATIV 10/31/2016 Ot 272.4 HYPERLIPIDEMIA NEC/NOS 10/31/2016 Ot 401.9 HYPERTENSION NOS 10/31/2016 Ot 414.01 CORONARY ATHEROSCLEROSIS OF [place] CORON 10/31/2016 Ot 414.01 CORONARY ATHEROSCLEROSIS OF [place] CORON 10/31/2016 Ot 785.1 PALPITATIONS 10/31/2016 UMAIR LAU, PAIGE R Ot 724.2 LUMBAGO 10/31/2016 UMAIR LAU, PAIGE R Ot 737.30 IDIOPATHIC SCOLIOSIS 10/31/2016 PAIGE BLOCK MD R Ot 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 10/31/2016 UMAIR LAU, PAIGE R Ot 272.4 HYPERLIPIDEMIA NEC/NOS 10/31/2016 PAIGE BLOCK MD R Ot 401.9 HYPERTENSION NOS 10/31/2016 UMAIR LAU, PAIGE R Ot 729.82 CRAMP IN LIMB 10/31/2016 PAIGE BLOCK MD R Ot 780.79 OTH MALAISE FATIGUE 10/31/2016 PAIGE BLOCK MD R Ot V76.12 OTH SCREEN MAMMO-MALIGN NEOPLASM OF JOSE 10/31/2016 UMAIR LAU, PAIGE R Ot 574.20 CHOLELITHIASIS NOS 10/31/2016 KAPOOR TINO MITCHELL Ot 414.00 CORON ATHEROSCLER NOS TYPE VESSEL, NATIV 10/31/2016 KAPOOR TINO MITCHELL Ot 574.20 CHOLELITHIASIS NOS 10/31/2016 KAPOOR TINO MITCHELL Ot V72.63 PRE-PROCEDURAL LABORATORY EXAMINATION 10/31/2016 GRANT TINO Domenic Ot V74.8 SCREEN-BACTERIAL DIS NEC 10/31/2016 UMAIR LAU, PAIGE R Ot 729.5 PAIN IN LIMB 10/31/2016 KRISSY DOAN EXCHANGE ENGINEER Ot 204.10 CHRONIC LYMPHOID LEUKEMIA, W/O MENTION A 10/31/2016 KRISSY DOAN EXCHANGE ENGINEER Ot 285.9 ANEMIA NOS 10/31/2016 KRISSY DOAN EXCHANGE ENGINEER Ot 414.00 CORON ATHEROSCLER NOS TYPE VESSEL, NATIV 10/31/2016 KRISSY DOAN EXCHANGE ENGINEER Ot 530.81 ESOPHAGEAL REFLUX 10/31/2016 KRISSY DOAN EXCHANGE ENGINEER Ot V45.81 AORTOCORONARY BYPASS 10/31/2016 KRISSY DOAN EXCHANGE ENGINEER Ot V58.69 OT MED,LT,CURRENT USE 10/31/2016 MANNY MEIER Ot C91.10 CHRONIC LYMPHOCYTIC LEUK OF B-CELL TYPE 10/31/2016 MANNY MEIER Ot I10 ESSENTIAL (PRIMARY) HYPERTENSION 10/31/2016 MANNY MEIER Ot I25.10 ATHSCL HEART DISEASE OF [place] CORONARY 10/31/2016 MANNY MEIER Ot 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 BILATERAL [place] 10/31/2016 MANNY MEIER Ot C91.10 CHRONIC LYMPHOCYTIC LEUK OF B-CELL TYPE 10/31/2016 MANNY MEIER Ot I10 ESSENTIAL (PRIMARY) HYPERTENSION 10/31/2016 MANNY MEIER Ot I25.10 ATHSCL HEART DISEASE OF [place] CORONARY 10/31/2016 MANNY MEIER Ot 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 [place]AL [place] 10/31/2016 MANNY MEIER Ot C91.10 CHRONIC LYMPHOCYTIC LEUK OF B-CELL TYPE 10/31/2016 MANNY MEIER Ot I10 ESSENTIAL (PRIMARY) HYPERTENSION 10/31/2016 MANNY MEIER Ot I25.10 ATHSCL HEART DISEASE OF [place] CORONARY 10/31/2016 MANNY MEIER Ot 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 [place] 10/31/2016 PAIGE BLOCK MD, Ot R05 COUGH 10/31/2016 MANNY MEIER Ot I10 ESSENTIAL (PRIMARY) HYPERTENSION 10/31/2016 PAIGE BLOCK MD, Ot S20.302A UNSP SUPERFICIAL INJURIES OF LEFT FRONT 10/31/2016 PAIGE BLOCK MD Ot W19.XXXA UNSPECIFIED FALL, INITIAL ENCOUNTER 10/31/2016 [...] MD, Ot I25.10 ATHSCL HEART DISEASE OF [place] CORONARY 10/31/2016 WILL MEHTA MD, Ot K21.9 GASTRO-ESOPHAGEAL REFLUX DISEASE WITHOUT 10/31/2016 WILL MEHTA MD, Ot Z79.899 OTHER RESIDENCY PROGRAM COORDINATOR (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 THERAPY 10/31/2016 WILL MEHTA MD, Ot Z95.1 PRESENCE OF AORTOCORONARY BYPASS GRAFT 10/31/2016 QUIANA LAU, ELISABETH Wallace Ot R00.2 PALPITATIONS 10/31/2016 JOAN PA, MANNY K Ot E78.2 MIXED HYPERLIPIDEMIA 10/31/2016 JUANPABLOJUS PA, MANNY K Ot I10 ESSENTIAL (PRIMARY) HYPERTENSION 10/31/2016 JOAN PA, MANNY K Ot I25.10 ATHSCL HEART DISEASE OF [place] CORONARY 10/31/2016 JOAN PA, MANNY K Ot 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 [place] 11/01/2016 JOAN PA, MANNY K Ot I25.10 ATHSCL HEART DISEASE OF [place] CORONARY 11/01/2016 JOAN PA, MANNY K Ot E78.2 MIXED HYPERLIPIDEMIA 11/01/2016 KIMEDUIN PA, MANNY K Ot I10 ESSENTIAL (PRIMARY) HYPERTENSION 11/01/2016 JOAN PA, MANNY K Ot I25.10 ATHSCL HEART DISEASE OF [place] CORONARY 11/01/2016 JOAN PA, MANNY K Ot 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 [place] 11/05/2016 JOAN PA, MANNY K Ot E78.2 MIXED HYPERLIPIDEMIA 11/05/2016 JOAN PA, MANNY K Ot I10 ESSENTIAL (PRIMARY) HYPERTENSION 11/05/2016 KMI-JUS PA, MANNY K Ot I25.10 ATHSCL HEART DISEASE OF [place] CORONARY 11/05/2016 JOAN PA, MANNY K Ot 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 [place] 11/06/2016 JOAN PA, MANNY K Ot E78.2 MIXED HYPERLIPIDEMIA 11/06/2016 JOAN PA, MANNY K Ot I10 ESSENTIAL (PRIMARY) HYPERTENSION 11/06/2016 JOAN PA, MANNY K Ot I25.10 ATHSCL HEART DISEASE OF [place] CORONARY 11/06/2016 JOAN PA, MANNY K Ot 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 [place] 11/22/2016 JOAN PA, MANNY K Ot E78.2 MIXED HYPERLIPIDEMIA 11/22/2016 KIM-JUS PA, MANNY K Ot I10 ESSENTIAL (PRIMARY) HYPERTENSION 11/22/2016 KIM-JUS PA, MANNY K Ot I25.10 ATHSCL HEART DISEASE OF [place] CORONARY 11/22/2016 MANNY MEIER Ot 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 [place] 11/22/2016 MANNY MEIER Ot E78.2 MIXED HYPERLIPIDEMIA 11/22/2016 MANNY MEIER Ot I10 ESSENTIAL (PRIMARY) HYPERTENSION 11/22/2016 MANNY MEIER Ot I25.10 ATHSCL HEART DISEASE OF [place] CORONARY 11/22/2016 MANNY MEIER Ot 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 [place] 11/28/2016 ELISABETH ARAYA MD Ot C91.10 CHRONIC LYMPHOCYTIC LEUK OF B-CELL TYPE 11/28/2016 ELISABETH ARAYA MD Ot E66.9 OBESITY, UNSPECIFIED 11/28/2016 ELISABETH ARAYA MD Ot E78.5 HYPERLIPIDEMIA, UNSPECIFIED 11/28/2016 ELISABETH ARAYA MD, Ot I10 ESSENTIAL (PRIMARY) HYPERTENSION 11/28/2016 ELISABETH ARAYA MD Ot I25.10 ATHSCL HEART DISEASE OF [place] CORONARY 11/28/2016 ELISABETH ARAYA MD Ot I35.0 NONRHEUMATIC AORTIC (VALVE) STENOSIS 11/28/2016 ELISABETH ARAYA MD Ot R07.89 OTHER CHEST PAIN 11/28/2016 ELISABETH ARAYA MD Ot R94.39 ABNORMAL RESULT OF OTHER CARDIOVASCULAR 11/28/2016 ELISABETH ARAYA MD Ot Z68.39 BODY MASS INDEX (BMI) 39.0-39.9, ADULT 11/28/2016 ELIASBETH ARAYA MD Ot Z79.899 OTHER RESIDENCY PROGRAM COORDINATOR (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 THERAPY 11/28/2016 ELISABETH ARAYA MD Ot Z95.1 PRESENCE OF AORTOCORONARY BYPASS GRAFT 11/28/2016 ELISABETH ARAYA MD Ot Z95.5 PRESENCE OF CORONARY ANGIOPLASTY IMPLANT 11/29/2016 MANNY MEIER Ot E78.2 MIXED HYPERLIPIDEMIA 11/29/2016 MANNY MEIER Ot I10 ESSENTIAL (PRIMARY) HYPERTENSION 11/29/2016 MANNY MEIER Ot I25.10 ATHSCL HEART DISEASE OF [place] CORONARY 11/29/2016 MANNY MEIER Ot 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 [place]AL [place] 11/29/2016 MANNY MEIER Ot E78.2 MIXED HYPERLIPIDEMIA 11/29/2016 MANNY MEIER Ot I10 ESSENTIAL (PRIMARY) HYPERTENSION 11/29/2016 MANNY MEIER Ot I25.10 ATHSCL HEART DISEASE OF [place] CORONARY 11/29/2016 MANNY MEIER Ot 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 [place] 12/11/2016 WILL MEHTA MD, Ot C91.10 CHRONIC LYMPHOCYTIC LEUK OF B-CELL TYPE 12/11/2016 WILL MEHTA MD Ot D50.9 IRON DEFICIENCY ANEMIA, UNSPECIFIED 12/11/2016 WILL MEHTA MD, Ot I25.10 ATHSCL HEART DISEASE OF [place] CORONARY 12/11/2016 WILL MEHTA MD Ot K21.9 GASTRO-ESOPHAGEAL REFLUX DISEASE WITHOUT 12/11/2016 WILL MEHTA MD Ot Z79.899 OTHER RESIDENCY PROGRAM COORDINATOR (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 THERAPY 12/11/2016 WILL MEHTA MD Ot Z95.1 PRESENCE OF AORTOCORONARY BYPASS GRAFT 12/12/2016 WILL MEHTA MD Ot C91.10 CHRONIC LYMPHOCYTIC LEUK OF B-CELL TYPE 12/12/2016 WILL MEHTA MD Ot D50.9 IRON DEFICIENCY ANEMIA, UNSPECIFIED 12/12/2016 WILL MEHTA MD Ot I25.10 ATHSCL HEART DISEASE OF [place] CORONARY 12/12/2016 WILL MEHTA MD Ot K21.9 GASTRO-ESOPHAGEAL REFLUX DISEASE WITHOUT 12/12/2016 WILL MEHTA MD Ot Z79.899 OTHER RESIDENCY PROGRAM COORDINATOR (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 THERAPY 12/12/2016 WILL MEHTA MD Ot Z95.1 PRESENCE OF AORTOCORONARY BYPASS GRAFT 12/13/2016 WILL MEHTA MD, Ot C91.10 CHRONIC LYMPHOCYTIC LEUK OF B-CELL TYPE 12/13/2016 WILL MEHTA MD Ot D50.9 IRON DEFICIENCY ANEMIA, UNSPECIFIED 12/13/2016 WILL MEHTA MD Ot I25.10 ATHSCL HEART DISEASE OF [place] CORONARY 12/13/2016 WILL MEHTA MD Ot K21.9 GASTRO-ESOPHAGEAL REFLUX DISEASE WITHOUT 12/13/2016 WILL MEHTA MD, Ot Z79.899 OTHER RESIDENCY PROGRAM COORDINATOR (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 THERAPY 12/13/2016 WILL MEHTA MD, Ot Z95.1 PRESENCE OF AORTOCORONARY BYPASS GRAFT 12/17/2016 WILL MEHTA MD, Ot C91.10 CHRONIC LYMPHOCYTIC LEUK OF B-CELL TYPE 12/17/2016 WILL MEHTA MD Ot D50.9 IRON DEFICIENCY ANEMIA, UNSPECIFIED 12/17/2016 WILL MEHTA MD, Ot I25.10 ATHSCL HEART DISEASE OF [place] CORONARY 12/17/2016 WILL MEHTA MD, Ot K21.9 GASTRO-ESOPHAGEAL REFLUX DISEASE WITHOUT 12/17/2016 WILL MEHTA MD, Ot Z79.899 OTHER RESIDENCY PROGRAM COORDINATOR (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 THERAPY 12/17/2016 WILL MEHTA MD, Ot Z95.1 PRESENCE OF AORTOCORONARY BYPASS GRAFT 12/27/2016 ELISABETH ARAYA MD, Ot C91.10 CHRONIC LYMPHOCYTIC LEUK OF B-CELL TYPE 12/27/2016 ELISABETH ARAYA MD Ot E66.9 OBESITY, UNSPECIFIED 12/27/2016 ELISABETH ARAYA MD Ot E78.5 HYPERLIPIDEMIA, UNSPECIFIED 12/27/2016 ELISABETH ARAYA MD Ot I10 ESSENTIAL (PRIMARY) HYPERTENSION 12/27/2016 ELISABETH ARAYA MD, Ot I25.10 ATHSCL HEART DISEASE OF [place] CORONARY 12/27/2016 ELISABETH ARAYA MD Ot I35.0 NONRHEUMATIC AORTIC (VALVE) STENOSIS 12/27/2016 ELISABETH ARAYA MD Ot R07.89 OTHER CHEST PAIN 12/27/2016 ELISABETH ARAYA MD Ot R94.39 ABNORMAL RESULT OF OTHER CARDIOVASCULAR 12/27/2016 ELISABETH ARAYA MD Ot Z68.39 BODY MASS INDEX (BMI) 39.0-39.9, ADULT 12/27/2016 ELISABETH ARAYA MD, Ot Z79.899 OTHER CARE HOME (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 THERAPY 12/27/2016 ELISABETH ARAYA MD Ot Z95.1 PRESENCE OF AORTOCORONARY BYPASS GRAFT 12/27/2016 ELISABETH ARAYA MD Ot Z95.5 PRESENCE OF CORONARY ANGIOPLASTY IMPLANT 01/13/2017 LORA DICKINSON Ot E66.9 OBESITY, UNSPECIFIED 01/13/2017 LORA DICKINSON Ot I10 ESSENTIAL (PRIMARY) HYPERTENSION 01/13/2017 LORA DICKINSON Ot I25.2 OLD MYOCARDIAL INFARCTION 01/13/2017 LORA DICKINSON Ot M25.552 PAIN IN LEFT HIP 01/13/2017 LORA DICKINSON Ot M51.36 OTHER INTERVERTEBRAL DISC DEGENERATION, 01/13/2017 LORA DICKINSON Ot S39.012A STRAIN OF MUSCLE, FASCIA AND TENDON OF L 01/13/2017 LORA DICKINSON Ot X50.9XXA OTHER AND UNSPECIFIED OVREXRTN OR STRNOU 01/13/2017 LORA DICKINSON Ot Y92.230 PATIENT ROOM IN [facility]ITAL PLACE 01/13/2017 LORA DICKINSON Ot Y99.8 OTHER EXTERNAL CAUSE STATUS 01/13/2017 LORA DICKINSON Ot Z79.82 CARE HOME (CURRENT) USE OF ASPIRIN 01/13/2017 LORA DICKINSON Ot Z79.899 OTHER CARE HOME (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 THERAPY 01/13/2017 LORA DICKINSON Ot Z95.1 PRESENCE OF AORTOCORONARY BYPASS GRAFT 01/13/2017 LORA DICKINSON Ot Z95.5 PRESENCE OF CORONARY ANGIOPLASTY IMPLANT 01/13/2017 LORA DICKINSON Ot Z96.642 PRESENCE OF LEFT ARTIFICIAL HIP JOINT 01/15/2017 LORA DICKINSON Ot E66.9 OBESITY, UNSPECIFIED 01/15/2017 LORA DICKINSON Ot I10 ESSENTIAL (PRIMARY) HYPERTENSION 01/15/2017 LORA DICKINSON Ot I25.2 OLD MYOCARDIAL INFARCTION 01/15/2017 LORA DICKINSON Ot M25.552 PAIN IN LEFT HIP 01/15/2017 LORA DICKINSON Ot M51.36 OTHER INTERVERTEBRAL DISC DEGENERATION, 01/15/2017 LORA DICKINSON Ot S39.012A STRAIN OF MUSCLE, FASCIA AND TENDON OF L 01/15/2017 LORA DICKINSON Ot X50.9XXA OTHER AND UNSPECIFIED OVREXRTN OR STRNOU 01/15/2017 LORA DICKINSON Ot Y92.230 PATIENT ROOM IN H[facility]ITAL PLACE 01/15/2017 LORA DICKINSON Ot Y99.8 OTHER EXTERNAL CAUSE STATUS 01/15/2017 LORA DICKINSON Ot Z79.82 CARE HOME (CURRENT) USE OF ASPIRIN 01/15/2017 LORA DICKINSON Ot Z79.899 OTHER RESIDENCY PROGRAM COORDINATOR (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 THERAPY 01/15/2017 LORA DICKINSON Ot Z95.1 PRESENCE OF AORTOCORONARY BYPASS GRAFT 01/15/2017 LORA DICKINSON Ot Z95.5 PRESENCE OF CORONARY ANGIOPLASTY IMPLANT 01/15/2017 LORA DICKINSON Ot Z96.642 PRESENCE OF LEFT ARTIFICIAL HIP JOINT 01/16/2017 WILL MEHTA MD, Ot C91.10 CHRONIC LYMPHOCYTIC LEUK OF B-CELL TYPE 01/16/2017 WILL MEHTA MD Ot D50.9 IRON DEFICIENCY ANEMIA, UNSPECIFIED 01/16/2017 WILL MEHTA MD Ot I25.10 ATHSCL HEART DISEASE OF [place] CORONARY 01/16/2017 WILL MEHTA MD Ot K21.9 GASTRO-ESOPHAGEAL REFLUX DISEASE WITHOUT 01/16/2017 WILL MEHTA MD Ot Z79.899 OTHER RESIDENCY PROGRAM COORDINATOR (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 THERAPY 01/16/2017 WILL MEHTA MD Ot Z95.1 PRESENCE OF AORTOCORONARY BYPASS GRAFT 01/24/2017 WILL MEHTA MD Ot C91.10 CHRONIC LYMPHOCYTIC LEUK OF B-CELL TYPE 01/24/2017 WILL MEHTA MD Ot D50.9 IRON DEFICIENCY ANEMIA, UNSPECIFIED 01/24/2017 WILL MEHTA MD Ot I25.10 ATHSCL HEART DISEASE OF [place] CORONARY 01/24/2017 WILL MEHTA MD Ot K21.9 GASTRO-ESOPHAGEAL REFLUX DISEASE WITHOUT 01/24/2017 WILL MEHTA MD Ot Z79.899 OTHER RESIDENCY PROGRAM COORDINATOR (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 THERAPY 01/24/2017 WILL MEHTA MD Ot Z95.1 PRESENCE OF AORTOCORONARY BYPASS GRAFT 03/12/2017 WILL MEHTA MD Ot C91.10 CHRONIC LYMPHOCYTIC LEUK OF B-CELL TYPE 03/12/2017 WILL MEHTA MD Ot D50.9 IRON DEFICIENCY ANEMIA, UNSPECIFIED 03/12/2017 WILL MEHTA MD Ot I25.10 ATHSCL HEART DISEASE OF [place] CORONARY 03/12/2017 WILL MEHTA MD Ot K21.9 GASTRO-ESOPHAGEAL REFLUX DISEASE WITHOUT 03/12/2017 WILL MEHTA MD Ot Z79.899 OTHER CARE HOME (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 THERAPY 03/12/2017 WILL MEHTA MD Ot Z95.1 PRESENCE OF AORTOCORONARY BYPASS GRAFT 03/13/2017 WILL MEHTA MD Ot C91.10 CHRONIC LYMPHOCYTIC LEUK OF B-CELL TYPE 03/13/2017 WILL MEHTA MD Ot D50.9 IRON DEFICIENCY ANEMIA, UNSPECIFIED 03/13/2017 WILL MEHTA MD Ot I25.10 ATHSCL HEART DISEASE OF [place] CORONARY 03/13/2017 WILL MEHTA MD, Ot K21.9 GASTRO-ESOPHAGEAL REFLUX DISEASE WITHOUT 03/13/2017 WILL MEHTA MD Ot Z79.899 OTHER CARE HOME (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 THERAPY 03/13/2017 WILL MEHTA MD Ot Z95.1 PRESENCE OF AORTOCORONARY BYPASS GRAFT 04/04/2017 WILL MEHTA MD Ot C91.10 CHRONIC LYMPHOCYTIC LEUK OF B-CELL TYPE 04/04/2017 WILL MEHTA MD Ot D50.9 IRON DEFICIENCY ANEMIA, UNSPECIFIED 04/04/2017 WILL MEHTA MD Ot I25.10 ATHSCL HEART DISEASE OF [place] CORONARY 04/04/2017 WILL MEHTA MD Ot K21.9 GASTRO-ESOPHAGEAL REFLUX DISEASE WITHOUT 04/04/2017 WILL MEHTA MD Ot Z79.899 OTHER RESIDENCY PROGRAM COORDINATOR (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 THERAPY 04/04/2017 WILL MEHTA MD Ot Z95.1 PRESENCE OF AORTOCORONARY BYPASS GRAFT 04/08/2017 WILL MEHTA MD Ot C91.10 CHRONIC LYMPHOCYTIC LEUK OF B-CELL TYPE 04/08/2017 WILL MEHTA MD Ot D50.9 IRON DEFICIENCY ANEMIA, UNSPECIFIED 04/08/2017 WILL MEHTA MD Ot I25.10 ATHSCL HEART DISEASE OF [place] CORONARY 04/08/2017 WILL MEHTA MD Ot K21.9 GASTRO-ESOPHAGEAL REFLUX DISEASE WITHOUT 04/08/2017 WILL MEHTA MD Ot Z79.899 OTHER CARE HOME (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 THERAPY 04/08/2017 WILL MEHTA MD Ot Z95.1 PRESENCE OF AORTOCORONARY BYPASS GRAFT 05/16/2017 WILL MEHTA MD, Ot C91.10 CHRONIC LYMPHOCYTIC LEUK OF B-CELL TYPE 05/16/2017 WILL MEHTA MD Ot D50.9 IRON DEFICIENCY ANEMIA, UNSPECIFIED 05/16/2017 WILL MEHTA MD Ot I25.10 ATHSCL HEART DISEASE OF [place] CORONARY 05/16/2017 WILL MEHTA MD Ot K21.9 GASTRO-ESOPHAGEAL REFLUX DISEASE WITHOUT 05/16/2017 WILL MEHTA MD Ot Z79.899 OTHER CARE HOME (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 THERAPY 05/16/2017 WILL MEHTA MD, Ot Z95.1 PRESENCE OF AORTOCORONARY BYPASS GRAFT 05/23/2017 WILL MEHTA MD, Ot C91.10 CHRONIC LYMPHOCYTIC LEUK OF B-CELL TYPE 05/23/2017 WILL MEHTA MD Ot D50.9 IRON DEFICIENCY ANEMIA, UNSPECIFIED 05/23/2017 WILL MEHTA MD Ot I25.10 ATHSCL HEART DISEASE OF [place] CORONARY 05/23/2017 WILL MEHTA MD Ot K21.9 GASTRO-ESOPHAGEAL REFLUX DISEASE WITHOUT 05/23/2017 WILL MEHTA MD Ot Z79.899 OTHER CARE HOME (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 THERAPY 05/23/2017 WILL MEHTA MD Ot Z95.1 PRESENCE OF AORTOCORONARY BYPASS GRAFT 07/04/2017 WILL MEHTA MD, Ot C91.10 CHRONIC LYMPHOCYTIC LEUK OF B-CELL TYPE 07/04/2017 WILL MEHTA MD Ot D50.9 IRON DEFICIENCY ANEMIA, UNSPECIFIED 07/04/2017 WILL MEHTA MD Ot I25.10 ATHSCL HEART DISEASE OF [place] CORONARY 07/04/2017 WILL MEHTA MD Ot K21.9 GASTRO-ESOPHAGEAL REFLUX DISEASE WITHOUT 07/04/2017 WILL MEHTA MD Ot Z79.899 OTHER CARE HOME (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 THERAPY 07/04/2017 WILL MEHTA MD Ot Z95.1 PRESENCE OF AORTOCORONARY BYPASS GRAFT 08/22/2017 Ot 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 08/22/2017 Ot 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 DISEASE 08/22/2017 Ot 401.9 HYPERTENSION NOS 08/22/2017 Ot 414.00 CORON ATHEROSCLER NOS TYPE VESSEL, NATIV 08/22/2017 Ot 786.50 CHEST PAIN NOS 08/22/2017 Ot 401.9 HYPERTENSION NOS 08/22/2017 Ot 414.00 CORON ATHEROSCLER NOS TYPE VESSEL, NATIV 08/22/2017 Ot 786.50 CHEST PAIN NOS 08/22/2017 Ot 272.4 HYPERLIPIDEMIA NEC/NOS 08/22/2017 Ot 401.9 HYPERTENSION NOS 08/22/2017 Ot 414.01 CORONARY ATHEROSCLEROSIS OF [place] CORON 08/22/2017 Ot 285.9 ANEMIA NOS 08/22/2017 Ot 285.9 ANEMIA NOS 08/22/2017 Ot 285.9 ANEMIA NOS 08/22/2017 Ot 204.10 CHRONIC LYMPHOID LEUKEMIA, W/O MENTION A 08/22/2017 Ot 611.72 LUMP OR MASS IN BREAST 08/22/2017 Ot 272.4 HYPERLIPIDEMIA NEC/NOS 08/22/2017 Ot 414.00 CORON ATHEROSCLER NOS TYPE VESSEL, NATIV 08/22/2017 Ot 272.4 HYPERLIPIDEMIA NEC/NOS 08/22/2017 Ot 401.9 HYPERTENSION NOS 08/22/2017 Ot 414.01 CORONARY ATHEROSCLEROSIS OF [place] CORON 08/22/2017 Ot 414.01 CORONARY ATHEROSCLEROSIS OF [place] CORON 08/22/2017 Ot 785.1 PALPITATIONS 08/22/2017 UMAIR LAU, PAIGE R Ot 724.2 LUMBAGO 08/22/2017 UMAIR LAU, PAIGE R Ot 737.30 IDIOPATHIC SCOLIOSIS 08/22/2017 UMAIR LAU, PAIGE R Ot 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 08/22/2017 UMAIR LAU, PAIGE R Ot 272.4 HYPERLIPIDEMIA NEC/NOS 08/22/2017 UMAIR LAU, PAIGE R Ot 401.9 HYPERTENSION NOS 08/22/2017 UMAIR LAU, PAIGE R Ot 729.82 CRAMP IN LIMB 08/22/2017 UMAIR LAU, PAIGE R Ot 780.79 OTH MALAISE FATIGUE 08/22/2017 UMAIR LAU, PAIGE R Ot V76.12 OTH SCREEN MAMMO-MALIGN NEOPLASM OF [place] 08/22/2017 UMAIR LAU, PAIGE R Ot 574.20 CHOLELITHIASIS NOS 08/22/2017 TINO KAPOOR DO Ot 414.00 CORON ATHEROSCLER NOS TYPE VESSEL, NATIV 08/22/2017 TINO KAPOOR DO Ot 574.20 CHOLELITHIASIS NOS 08/22/2017 TINO KAPOOR DO Ot V72.63 PRE-PROCEDURAL LABORATORY EXAMINATION 08/22/2017 TINO KAPOOR DO Ot V74.8 SCREEN-BACTERIAL DIS NEC 08/22/2017 UMAIR LAU, PAIGE R Ot 729.5 PAIN IN LIMB 08/22/2017 KRISSY DOAN EXCHANGE ENGINEER Ot 204.10 CHRONIC LYMPHOID LEUKEMIA, W/O MENTION A 08/22/2017 KRISSY DOAN EXCHANGE ENGINEER Ot 285.9 ANEMIA NOS 08/22/2017 KRISSY DOAN EXCHANGE ENGINEER Ot 414.00 CORON ATHEROSCLER NOS TYPE VESSEL, NATIV 08/22/2017 KRISSY DOAN EXCHANGE ENGINEER Ot 530.81 ESOPHAGEAL REFLUX 08/22/2017 KRISSY DOAN EXCHANGE ENGINEER Ot V45.81 AORTOCORONARY BYPASS 08/22/2017 KRISSY DOAN EXCHANGE ENGINEER Ot V58.69 OT MED,LT,CURRENT USE 08/22/2017 MANNY MEIER Ot C91.10 CHRONIC LYMPHOCYTIC LEUK OF B-CELL TYPE 08/22/2017 MANNY MEIER Ot I10 ESSENTIAL (PRIMARY) HYPERTENSION 08/22/2017 MANNY MEIER Ot I25.10 ATHSCL HEART DISEASE OF [place] CORONARY 08/22/2017 MANNY MEIER Ot 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 BILATERAL [place] 08/22/2017 MANNY MEIER Ot C91.10 CHRONIC LYMPHOCYTIC LEUK OF B-CELL TYPE 08/22/2017 MANNY MEIER Ot I10 ESSENTIAL (PRIMARY) HYPERTENSION 08/22/2017 MANNY MEIER Ot I25.10 ATHSCL HEART DISEASE OF [place] CORONARY 08/22/2017 MANNY MEIER Ot 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 BILATERAL [place] 08/22/2017 MANNY MEIER Ot C91.10 CHRONIC LYMPHOCYTIC LEUK OF B-CELL TYPE 08/22/2017 MANNY MEIER Ot I10 ESSENTIAL (PRIMARY) HYPERTENSION 08/22/2017 MANNY MEIER Ot I25.10 ATHSCL HEART DISEASE OF [place] CORONARY 08/22/2017 MANNY MEIER Ot 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 BILATERAL [place] 08/22/2017 PAIGE BLOCK MD Ot R05 COUGH 08/22/2017 MANNY MEIER Ot I10 ESSENTIAL (PRIMARY) HYPERTENSION 08/22/2017 PAIGE BLOCK MD Ot S20.302A UNSP SUPERFICIAL INJURIES OF LEFT FRONT 08/22/2017 PAIGE BLOCK MD Ot W19.XXXA UNSPECIFIED FALL, INITIAL ENCOUNTER 08/22/2017 PAIGE BLOCK MD Ot Y99.8 OTHER EXTERNAL CAUSE STATUS 08/22/2017 MONIKA DARBY APRN Ot R06.02 SHORTNESS OF BREATH 08/22/2017 MONIKA DARBY APRN Ot J84.10 PULMONARY FIBROSIS, UNSPECIFIED 08/22/2017 MONIKA DARBY APRN Ot S22.41XA MULTIPLE FRACTURES OF RIBS, RIGHT SIDE, 08/22/2017 MONIKA DARBY APRN Ot X52.XXXA PROLONGED STAY IN WEIGHTLESS ENVIRONMENT 08/22/2017 MONIKA DARBY APRN Ot Y99.8 OTHER EXTERNAL CAUSE STATUS 08/22/2017 JADA LAU, LASHAUN Wallace Ot M54.5 LOW BACK PAIN 08/22/2017 QUIANA LAU, ELISABETH Wallace Ot R00.2 PALPITATIONS 08/22/2017 MANNY MEIER Ot E78.2 MIXED HYPERLIPIDEMIA 08/22/2017 MANNY MEIER Ot I10 ESSENTIAL (PRIMARY) HYPERTENSION 08/22/2017 MANNY MEIER Ot I25.10 ATHSCL HEART DISEASE OF [place] CORONARY 08/22/2017 MANNY MEIER Ot 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 [place] 08/22/2017 MANNY MEIER Ot E78.2 MIXED HYPERLIPIDEMIA 08/22/2017 MANNY MEIER Ot I10 ESSENTIAL (PRIMARY) HYPERTENSION 08/22/2017 MANNY MEIER Ot I25.10 ATHSCL HEART DISEASE OF [place] CORONARY 08/22/2017 MANNY MEIER Ot 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 BILATERAL [place] 08/22/2017 WILL MEHTA MD Ot C91.10 CHRONIC LYMPHOCYTIC LEUK OF B-CELL TYPE 08/22/2017 WILL MEHTA MD, Ot D50.9 IRON DEFICIENCY ANEMIA, UNSPECIFIED 08/22/2017 WILL MEHTA MD, Ot I25.10 ATHSCL HEART DISEASE OF [place] CORONARY 08/22/2017 WILL MEHTA MD, Ot K21.9 GASTRO-ESOPHAGEAL REFLUX DISEASE WITHOUT 08/22/2017 WILL MEHTA MD Ot Z79.899 OTHER RESIDENCY PROGRAM COORDINATOR (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 THERAPY 08/22/2017 WILL MEHTA MD Ot Z95.1 PRESENCE OF AORTOCORONARY BYPASS GRAFT 09/11/2017 ANASTASIA MEDRANO MD C Ot M25.552 PAIN IN LEFT HIP 09/11/2017 ANASTASIA MEDRANO MD C Ot Z96.642 PRESENCE OF LEFT ARTIFICIAL HIP JOINT 09/19/2017 ANASTASIA MEDRANO MD C Ot M25.552 PAIN IN LEFT HIP 09/19/2017 ANASTASIA MEDRANO MD C Ot Z96.642 PRESENCE OF LEFT ARTIFICIAL HIP JOINT 10/01/2017 WILL MEHTA MD, Ot C91.10 CHRONIC LYMPHOCYTIC LEUK OF B-CELL TYPE 10/01/2017 WILL MEHTA MD Ot D50.9 IRON DEFICIENCY ANEMIA, UNSPECIFIED 10/01/2017 WILL MEHTA MD Ot I25.10 ATHSCL HEART DISEASE OF [place] CORONARY 10/01/2017 WILL MEHTA MD, Ot K21.9 GASTRO-ESOPHAGEAL REFLUX DISEASE WITHOUT 10/01/2017 WILL MEHTA MD, Ot Z79.899 OTHER RESIDENCY PROGRAM COORDINATOR (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 THERAPY 10/01/2017 WILL MEHTA MD, Ot Z95.1 PRESENCE OF AORTOCORONARY BYPASS GRAFT 10/21/2017 WILL MEHTA MD, Ot C91.10 CHRONIC LYMPHOCYTIC LEUK OF B-CELL TYPE 10/21/2017 WILL MEHTA MD, Ot D50.9 IRON DEFICIENCY ANEMIA, UNSPECIFIED 10/21/2017 WILL MEHTA MD Ot I25.10 ATHSCL HEART DISEASE OF [place] CORONARY 10/21/2017 WILL MEHTA MD Ot K21.9 GASTRO-ESOPHAGEAL REFLUX DISEASE WITHOUT 10/21/2017 WILL MEHTA MD Ot Z79.899 OTHER RESIDENCY PROGRAM COORDINATOR (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 THERAPY 10/21/2017 WILL MEHTA MD Ot Z95.1 PRESENCE OF AORTOCORONARY BYPASS GRAFT 10/23/2017 WILL MEHTA MD Ot C91.10 CHRONIC LYMPHOCYTIC LEUK OF B-CELL TYPE 10/23/2017 WILL MEHTA MD Ot D50.9 IRON DEFICIENCY ANEMIA, UNSPECIFIED 10/23/2017 WILL MEHTA MD Ot I25.10 ATHSCL HEART DISEASE OF [place] CORONARY 10/23/2017 WILL MEHTA MD Ot K21.9 GASTRO-ESOPHAGEAL REFLUX DISEASE WITHOUT 10/23/2017 WILL MEHTA MD, Ot Z79.899 OTHER RESIDENCY PROGRAM COORDINATOR (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 THERAPY 10/23/2017 WILL MEHTA MD Ot Z95.1 PRESENCE OF AORTOCORONARY BYPASS GRAFT 11/07/2017 Ot 285.9 ANEMIA NOS 11/07/2017 Ot 285.9 ANEMIA NOS 11/07/2017 Ot 204.10 CHRONIC LYMPHOID LEUKEMIA, W/O MENTION A 11/07/2017 Ot 611.72 LUMP OR MASS IN BREAST 11/07/2017 Ot 272.4 HYPERLIPIDEMIA NEC/NOS 11/07/2017 Ot 414.00 CORON ATHEROSCLER NOS TYPE VESSEL, NATIV 11/07/2017 Ot 272.4 HYPERLIPIDEMIA NEC/NOS 11/07/2017 Ot 401.9 HYPERTENSION NOS 11/07/2017 Ot 414.01 CORONARY ATHEROSCLEROSIS OF [place] CORON 11/07/2017 Ot 414.01 CORONARY ATHEROSCLEROSIS OF [place] CORON 11/07/2017 Ot 785.1 PALPITATIONS 11/07/2017 PAIGE BLOCK MD R Ot 724.2 LUMBAGO 11/07/2017 UMAIR LAU, PAIGE R Ot 737.30 IDIOPATHIC SCOLIOSIS 11/07/2017 UMAIR LAU PAIGE R Ot 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 11/07/2017 PAIGE BLOCK MD R Ot 272.4 HYPERLIPIDEMIA NEC/NOS 11/07/2017 PAIGE BLOCK MD R Ot 401.9 HYPERTENSION NOS 11/07/2017 PAIGE BLOCK MD R Ot 729.82 CRAMP IN LIMB 11/07/2017 PAIGE BLOCK MD R Ot 780.79 OTH MALAISE FATIGUE 11/07/2017 PAIGE BLOCK MD R Ot V76.12 OTH SCREEN MAMMO-MALIGN NEOPLASM OF [place] 11/07/2017 UMAIR LAU, PAIGE R Ot 574.20 CHOLELITHIASIS NOS 11/07/2017 GRANT TINO Ot 414.00 CORON ATHEROSCLER NOS TYPE VESSEL, NATIV 11/07/2017 GRANT TINO D Ot 574.20 CHOLELITHIASIS NOS 11/07/2017 GRANT TINO Domenic Ot V72.63 PRE-PROCEDURAL LABORATORY EXAMINATION 11/07/2017 [facility]8 SCREEN-BACTERIAL DIS NEC 11/07/2017 UMAIR LAU, PAIGE R Ot 729.5 PAIN IN LIMB 11/07/2017 KRISSY DOAN EXCHANGE ENGINEER Ot 204.10 CHRONIC LYMPHOID LEUKEMIA, W/O MENTION A 11/07/2017 KRISSY DOAN EXCHANGE ENGINEER Ot 285.9 ANEMIA NOS 11/07/2017 KRISSY DOAN EXCHANGE ENGINEER Ot 414.00 CORON ATHEROSCLER NOS TYPE VESSEL, NATIV 11/07/2017 KRISSY DOAN EXCHANGE ENGINEER Ot 530.81 ESOPHAGEAL REFLUX 11/07/2017 KRISSY DOAN EXCHANGE ENGINEER Ot V45.81 AORTOCORONARY BYPASS 11/07/2017 KRISSY DOAN EXCHANGE ENGINEER Ot V58.69 OT MED,LT,CURRENT USE 11/07/2017 MANNY MEIER Ot C91.10 CHRONIC LYMPHOCYTIC LEUK OF B-CELL TYPE 11/07/2017 MANNY MEIER Ot I10 ESSENTIAL (PRIMARY) HYPERTENSION 11/07/2017 MANNY MEIER Ot I25.10 ATHSCL HEART DISEASE OF [place] CORONARY 11/07/2017 MANNY MEIER Ot 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 BILATERAL [place] 11/07/2017 MANNY MEIER Ot C91.10 CHRONIC LYMPHOCYTIC LEUK OF B-CELL TYPE 11/07/2017 MANNY MEIER Ot I10 ESSENTIAL (PRIMARY) HYPERTENSION 11/07/2017 MANNY MEIER Ot I25.10 ATHSCL HEART DISEASE OF [place] CORONARY 11/07/2017 MANNY MEIER Ot 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 B[place] 11/07/2017 MANNY MEIER Ot C91.10 CHRONIC LYMPHOCYTIC LEUK OF B-CELL TYPE 11/07/2017 MANNY MEIER Ot I10 ESSENTIAL (PRIMARY) HYPERTENSION 11/07/2017 MANNY MEIER Ot I25.10 ATHSCL HEART DISEASE OF [place] CORONARY 11/07/2017 MANNY MEIER Ot 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 BILATERAL [place] 11/07/2017 PAIGE BLOCK MD Ot R05 COUGH 11/07/2017 MANNY MEIER Ot I10 ESSENTIAL (PRIMARY) HYPERTENSION 11/07/2017 PAIGE BLOCK MD Ot S20.302A UNSP SUPERFICIAL INJURIES OF LEFT FRONT 11/07/2017 PAIGE BLOCK MD Ot W19.XXXA UNSPECIFIED FALL, INITIAL ENCOUNTER 11/07/2017 PAIGE BLOCK MD Ot Y99.8 OTHER EXTERNAL CAUSE STATUS 11/07/2017 MONIKA DARBY APRN Ot R06.02 SHORTNESS OF BREATH 11/07/2017 MONIKA DARBY APRN Ot J84.10 PULMONARY FIBROSIS, UNSPECIFIED 11/07/2017 MONIKA DRABY APRN Ot S22.41XA MULTIPLE FRACTURES OF RIBS, RIGHT SIDE, 11/07/2017 MONIKA DARBY APRN Ot X52.XXXA PROLONGED STAY IN WEIGHTLESS ENVIRONMENT 11/07/2017 MONIKA DARBY APRN Ot Y99.8 OTHER EXTERNAL CAUSE STATUS 11/07/2017 JADA LAU, LASHAUN Wallace Ot M54.5 LOW BACK PAIN 11/07/2017 QUIANA LAU, ELISABETH Wallace Ot R00.2 PALPITATIONS 11/07/2017 MANNY MEIER Ot E78.2 MIXED HYPERLIPIDEMIA 11/07/2017 MANNY MEIER Ot I10 ESSENTIAL (PRIMARY) HYPERTENSION 11/07/2017 MANNY MEIER Ot I25.10 ATHSCL HEART DISEASE OF [place] CORONARY 11/07/2017 MANNY MIEER Ot 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 B[place]ATER[place] 11/07/2017 MANNY MEIER Ot E78.2 MIXED HYPERLIPIDEMIA 11/07/2017 MANNY MEIER Ot I10 ESSENTIAL (PRIMARY) HYPERTENSION 11/07/2017 MANNY MEIER Ot I25.10 ATHSCL HEART DISEASE OF [place] CORONARY 11/07/2017 MANNY MEIER Ot 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 BIL[place]AL [place] 11/07/2017 WILL MEHTA MD Ot C91.10 CHRONIC LYMPHOCYTIC LEUK OF B-CELL TYPE 11/07/2017 WILL MEHTA MD, Ot D50.9 IRON DEFICIENCY ANEMIA, UNSPECIFIED 11/07/2017 WILL MEHTA MD, Ot I25.10 ATHSCL HEART DISEASE OF [place] CORONARY 11/07/2017 WILL MEHTA MD, Ot K21.9 GASTRO-ESOPHAGEAL REFLUX DISEASE WITHOUT 11/07/2017 WILL MEHTA MD, Ot Z79.899 OTHER CARE HOME (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 THERAPY 11/07/2017 WILL MEHTA MD, Ot Z95.1 PRESENCE OF AORTOCORONARY BYPASS GRAFT 11/07/2017 ANASTASIA MEDRANO MD Ot M25.552 PAIN IN LEFT HIP 11/07/2017 ANASTASIA MEDRANO MD Ot Z96.642 PRESENCE OF LEFT ARTIFICIAL HIP JOINT 11/07/2017 MANNY MEIER Ot I25.10 ATHSCL HEART DISEASE OF [place] CORONARY 11/10/2017 AAMIR RENTERIA MD Ot E78.00 PURE HYPERCHOLESTEROLEMIA, UNSPECIFIED 11/10/2017 AAMIR RENTERIA MD Ot I10 ESSENTIAL (PRIMARY) HYPERTENSION 11/10/2017 AAMIR RENTERIA MD, Ot I25.10 ATHSCL HEART DISEASE OF [place] CORONARY 11/10/2017 AAMIR RENTERIA MD Ot I25.2 OLD MYOCARDIAL INFARCTION 11/10/2017 AAMIR RENTERIA MD, Ot S42.291A OTH DISP FX OF UPPER END OF RIGHT HUMERU 11/10/2017 AAMIR RENTERIA MD, Ot S49.91XA UNSP INJURY OF RIGHT SHOULDER AND UPPER 11/10/2017 AAMIR RENTERIA MD Ot W01.0XXA FALL SAME LEV FROM SLIP/TRIP W/O STRIKE 11/10/2017 AAMIR RENTERIA MD Ot Z79.82 RESIDENCY PROGRAM COORDINATOR (CURRENT) USE OF ASPIRIN 11/10/2017 AAMIR RENTERIA MD Ot Z85.6 PERSONAL HISTORY OF LEUKEMIA 11/10/2017 AAMIR RENTERIA MD Ot Z90.49 ACQUIRED ABSENCE OF OTHER SPECIFIED PART 11/10/2017 AAMIR RENTERIA MD Ot Z95.1 PRESENCE OF AORTOCORONARY BYPASS GRAFT 11/10/2017 AAMIR RENTERIA MD Ot Z95.5 PRESENCE OF CORONARY ANGIOPLASTY IMPLANT 11/10/2017 AAMIR RENTERIA MD Ot Z96.641 PRESENCE OF RIGHT ARTIFICIAL HIP JOINT 11/10/2017 AAMIR RENTERIA MD Ot Z96.651 PRESENCE OF RIGHT ARTIFICIAL KNEE JOINT 11/10/2017 AAMIR RENTERIA MD Ot Z98.51 TUBAL LIGATION STATUS 11/11/2017 MANNY MEIER Ot E78.2 MIXED HYPERLIPIDEMIA 11/11/2017 MANNY MEIER Ot I10 ESSENTIAL (PRIMARY) HYPERTENSION 11/11/2017 MANNY MEIER Ot I25.10 ATHSCL HEART DISEASE OF [place] CORONARY 11/11/2017 MANNY MEIER Ot 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 BILATERAL [place] 11/28/2017 MANNY MEIER Ot E78.2 MIXED HYPERLIPIDEMIA 11/28/2017 MANNY MEIER Ot I10 ESSENTIAL (PRIMARY) HYPERTENSION 11/28/2017 MANNY MEIER Ot I25.10 ATHSCL HEART DISEASE OF [place] CORONARY 11/28/2017 MANNY MEIER Ot 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 BILATERAL [place] 12/02/2017 WILL MEHTA MD Ot C91.10 CHRONIC LYMPHOCYTIC LEUK OF B-CELL TYPE 12/02/2017 WILL MEHTA MD Ot D50.9 IRON DEFICIENCY ANEMIA, UNSPECIFIED 12/02/2017 WILL MEHTA MD, Ot I25.10 ATHSCL HEART DISEASE OF [place] CORONARY 12/02/2017 WILL MEHTA MD, Ot K21.9 GASTRO-ESOPHAGEAL REFLUX DISEASE WITHOUT 12/02/2017 WILL MEHTA MD, Ot Z79.899 OTHER RESIDENCY PROGRAM COORDINATOR (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 THERAPY 12/02/2017 WILL MEHTA MD, Ot Z95.1 PRESENCE OF AORTOCORONARY BYPASS GRAFT 12/03/2017 WILL MEHTA MD Ot C91.10 CHRONIC LYMPHOCYTIC LEUK OF B-CELL TYPE 12/03/2017 WILL MEHTA MD Ot D50.9 IRON DEFICIENCY ANEMIA, UNSPECIFIED 12/03/2017 WILL MEHTA MD Ot I25.10 ATHSCL HEART DISEASE OF [place] CORONARY 12/03/2017 WILL MEHTA MD Ot K21.9 GASTRO-ESOPHAGEAL REFLUX DISEASE WITHOUT 12/03/2017 WILL MEHTA MD Ot Z79.899 OTHER CARE HOME (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 THERAPY 12/03/2017 WILL MEHTA MD Ot Z95.1 PRESENCE OF AORTOCORONARY BYPASS GRAFT 01/17/2018 WILL MEHTA MD, Ot C91.10 CHRONIC LYMPHOCYTIC LEUK OF B-CELL TYPE 01/17/2018 WILL MEHTA MD, Ot D50.9 IRON DEFICIENCY ANEMIA, UNSPECIFIED 01/17/2018 WILL MEHTA MD Ot I25.10 ATHSCL HEART DISEASE OF [place] CORONARY 01/17/2018 WILL MEHTA MD Ot K21.9 GASTRO-ESOPHAGEAL REFLUX DISEASE WITHOUT 01/17/2018 WILL MEHTA MD Ot Z79.899 OTHER RESIDENCY PROGRAM COORDINATOR (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 THERAPY 01/17/2018 WILL MEHTA MD Ot Z95.1 PRESENCE OF AORTOCORONARY BYPASS GRAFT 02/20/2018 MANNY MEIER Ot E78.5 HYPERLIPIDEMIA, UNSPECIFIED 02/20/2018 MANNY MEIER Ot 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 02/20/2018 MANNY MEIER Ot I10 ESSENTIAL (PRIMARY) HYPERTENSION 02/20/2018 MANNY MEIER Ot I25.10 ATHSCL HEART DISEASE OF [place] CORONARY 03/14/2018 MANNY MEIER Ot E78.5 HYPERLIPIDEMIA, UNSPECIFIED 03/14/2018 MANNY MEIER Ot 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 03/14/2018 MANNY MEIER Ot I10 ESSENTIAL (PRIMARY) HYPERTENSION 03/14/2018 MANNY MEIER Ot I25.10 ATHSCL HEART DISEASE OF [place] CORONARY 03/17/2018 WILL MEHTA MD, Ot C91.10 CHRONIC LYMPHOCYTIC LEUK OF B-CELL TYPE 03/17/2018 WILL MEHTA MD Ot D50.9 IRON DEFICIENCY ANEMIA, UNSPECIFIED 03/17/2018 WILL MEHTA MD, Ot I25.10 ATHSCL HEART DISEASE OF [place] CORONARY 03/17/2018 WILL MEHTA MD, Ot K21.9 GASTRO-ESOPHAGEAL REFLUX DISEASE WITHOUT 03/17/2018 WILL MEHTA MD, Ot Z79.899 OTHER RESIDENCY PROGRAM COORDINATOR (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 THERAPY 03/17/2018 WILL MEHTA MD, Ot Z95.1 PRESENCE OF AORTOCORONARY BYPASS GRAFT 03/20/2018 MANNY MEIER Ot E78.5 HYPERLIPIDEMIA, UNSPECIFIED 03/20/2018 MANNY MEIER Ot 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 03/20/2018 MANNY MEIER Ot I10 ESSENTIAL (PRIMARY) HYPERTENSION 03/20/2018 MANNY MEIER Ot I25.10 ATHSCL HEART DISEASE OF [place] CORONARY 04/25/2018 AYANA LIAO MD Ot M75.21 BICIPITAL TENDINITIS, RIGHT SHOULDER 04/25/2018 AYANA LIAO MD Ot S42.291D OTH DISP FX OF UPPER END R HUMER, SUBS F 04/25/2018 AYANA LIAO MD Ot S42.491D OTH DISP FX OF LOWER END R HUMER, SUBS F 04/25/2018 AYANA LIAO MD Ot S46.811A STRAIN OF MUSC/FASC/TEND AT [facility]/ ARM 04/25/2018 AYANA LIAO MD Ot Z91.81 HISTORY OF FALLING 05/14/2018 AYANA LIAO MD Ot M75.21 BICIPITAL TENDINITIS, RIGHT SHOULDER 05/14/2018 YANNI LAU, AYANA Contreras Ot S42.291D OTH DISP FX OF UPPER END R HUMER, SUBS F 05/14/2018 AYANA LIAO MD Ot S42.491D OTH DISP FX OF LOWER END R HUMER, SUBS F 05/14/2018 AYANA LIAO MD Ot S46.811A STRAIN OF MUSC/FASC/TEND AT SHLDR/UP ARM 05/14/2018 AYANA LIAO MD, Ot Z91.81 HISTORY OF FALLING 05/21/2018 AYANA LIAO MD Ot M75.21 BICIPITAL TENDINITIS, RIGHT SHOULDER 05/21/2018 AYANA LIAO MD, Ot S42.291D OTH DISP FX OF UPPER END R HUMER, SUBS F 05/21/2018 AYANA LIAO MD, Ot S42.491D OTH DISP FX OF LOWER END R HUMER, SUBS F 05/21/2018 AYANA LIAO MD, Ot S46.811A STRAIN OF MUSC/FASC/TEND AT SHLDR/UP ARM 05/21/2018 AYANA LIAO MD, Ot Z91.81 HISTORY OF FALLING 06/04/2018 WILL MEHTA MD, Ot C91.10 CHRONIC LYMPHOCYTIC LEUK OF B-CELL TYPE 06/04/2018 WILL MEHTA MD, Ot D50.9 IRON DEFICIENCY ANEMIA, UNSPECIFIED 06/04/2018 WILL MEHTA MD, Ot I25.10 ATHSCL HEART DISEASE OF [place] CORONARY 06/04/2018 WILL MEHTA MD Ot K21.9 GASTRO-ESOPHAGEAL REFLUX DISEASE WITHOUT 06/04/2018 WILL MEHTA MD, Ot Z79.899 OTHER RESIDENCY PROGRAM COORDINATOR (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 THERAPY 06/04/2018 WILL MEHTA MD, Ot Z95.1 PRESENCE OF AORTOCORONARY BYPASS GRAFT 06/12/2018 PAIGE BLOCK MD R Ot 724.2 LUMBAGO 06/12/2018 PAIGE BLOCK MD R Ot 737.30 IDIOPATHIC SCOLIOSIS 06/12/2018 PAIGE BLOCK MD R Ot 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 06/12/2018 PAIGE BLOCK MD R Ot 272.4 HYPERLIPIDEMIA NEC/NOS 06/12/2018 PAIGE BLOCK MD R Ot 401.9 HYPERTENSION NOS 06/12/2018 PAIGE BLOCK MD R Ot 729.82 CRAMP IN LIMB 06/12/2018 PAIGE BLOCK MD R Ot 780.79 OTH MALAISE FATIGUE 06/12/2018 PAIGE BLOCK MD R Ot V76.12 OTH SCREEN MAMMO-MALIGN NEOPLASM OF [place] 06/12/2018 PAIGE BLOCK MD R Ot 574.20 CHOLELITHIASIS NOS 06/12/2018 TINO KAPOOR DO D Ot 414.00 CORON ATHEROSCLER NOS TYPE VESSEL, NATIV 06/12/2018 TINO KAPOOR DO D Ot 574.20 CHOLELITHIASIS NOS 06/12/2018 TINO KAPOOR DO Ot V72.63 PRE-PROCEDURAL LABORATORY EXAMINATION 06/12/2018 TINO KAPOOR DO Domenic Ot V74.8 SCREEN-BACTERIAL DIS NEC 06/12/2018 UMAIR LAU, PAIGE R Ot 729.5 PAIN IN LIMB 06/12/2018 KRISSY DOAN EXCHANGE ENGINEER Ot 204.10 CHRONIC LYMPHOID LEUKEMIA, W/O MENTION A 06/12/2018 KRISSY DOAN EXCHANGE ENGINEER Ot 285.9 ANEMIA NOS 06/12/2018 KRISSY DOAN EXCHANGE ENGINEER Ot 414.00 CORON ATHEROSCLER NOS TYPE VESSEL, NATIV 06/12/2018 KRISSY DOAN EXCHANGE ENGINEER Ot 530.81 ESOPHAGEAL REFLUX 06/12/2018 KRISSY DOAN EXCHANGE ENGINEER Ot V45.81 AORTOCORONARY BYPASS 06/12/2018 KRISSY DOAN EXCHANGE ENGINEER Ot V58.69 [facility] MED,LT,CURRENT USE 06/12/2018 MANNY MEIER Ot C91.10 CHRONIC LYMPHOCYTIC LEUK OF B-CELL TYPE 06/12/2018 MANNY MEIER Ot I10 ESSENTIAL (PRIMARY) HYPERTENSION 06/12/2018 MANNY MEIER Ot I25.10 ATHSCL HEART DISEASE OF [place] CORONARY 06/12/2018 MANNY MEIER Ot 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 BILATERAL [place] 06/12/2018 MANNY MEIER Ot C91.10 CHRONIC LYMPHOCYTIC LEUK OF B-CELL TYPE 06/12/2018 MANNY MEIER Ot I10 ESSENTIAL (PRIMARY) HYPERTENSION 06/12/2018 MANNY MEIER Ot I25.10 ATHSCL HEART DISEASE OF [place] CORONARY 06/12/2018 MANNY MEIER Ot 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 BILATERAL [place] 06/12/2018 MANNY MEIER Ot C91.10 CHRONIC LYMPHOCYTIC LEUK OF B-CELL TYPE 06/12/2018 MANNY MEIER Ot I10 ESSENTIAL (PRIMARY) HYPERTENSION 06/12/2018 MANNY MEIER Ot I25.10 ATHSCL HEART DISEASE OF [place] CORONARY 06/12/2018 MANNY MEIER Ot 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 BILATERAL [place] 06/12/2018 UMAIR LAU, PAIGE R Ot R05 COUGH 06/12/2018 MANNY MEIER Ot I10 ESSENTIAL (PRIMARY) HYPERTENSION 06/12/2018 UMAIR LAU, PAIGE R Ot S20.302A UNSP SUPERFICIAL INJURIES OF LEFT FRONT 06/12/2018 UMAIR LAU, PAIGE R Ot W19.XXXA UNSPECIFIED FALL, INITIAL ENCOUNTER 06/12/2018 UMAIR LAU, PAIGE Forte Ot Y99.8 OTHER EXTERNAL CAUSE STATUS 06/12/2018 MONIKA DARBY APRN Ot R06.02 SHORTNESS OF BREATH 06/12/2018 MONIKA DARBY APRN Ot J84.10 PULMONARY FIBROSIS, UNSPECIFIED 06/12/2018 MONIKA DARBY APRN Ot S22.41XA MULTIPLE FRACTURES OF RIBS, RIGHT SIDE, 06/12/2018 MONIKA DARBY APRN Ot X52.XXXA PROLONGED STAY IN WEIGHTLESS ENVIRONMENT 06/12/2018 MONIAK DARBY APRN Ot Y99.8 OTHER EXTERNAL CAUSE STATUS 06/12/2018 JADA LAU, LASHAUN Wallace Ot M54.5 LOW BACK PAIN 06/12/2018 QUIANA LAU, ELISABETH Wallace Ot R00.2 PALPITATIONS 06/12/2018 MANNY MEIER Ot E78.2 MIXED HYPERLIPIDEMIA 06/12/2018 MANNY MEIER Ot I10 ESSENTIAL (PRIMARY) HYPERTENSION 06/12/2018 MANNY MEIER Ot I25.10 ATHSCL HEART DISEASE OF [place] CORONARY 06/12/2018 MANNY MEIER Ot 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 BILATERAL [place] 06/12/2018 MANNY MEIER Ot E78.2 MIXED HYPERLIPIDEMIA 06/12/2018 MANNY MEIER Ot I10 ESSENTIAL (PRIMARY) HYPERTENSION 06/12/2018 MANNY MEIER Ot I25.10 ATHSCL HEART DISEASE OF [place] CORONARY 06/12/2018 JOAN DAVID, MANNY Lofton Ot 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 BILATERAL [place] 06/12/2018 ANASTASIA MEDRANO MD Ot M25.552 PAIN IN LEFT HIP 06/12/2018 ANASTASIA MEDRANO MD Ot Z96.642 PRESENCE OF LEFT ARTIFICIAL HIP JOINT 06/12/2018 JOAN DAVID, MANNY Lofton Ot E78.2 MIXED HYPERLIPIDEMIA 06/12/2018 MANNY MEIER Ot I10 ESSENTIAL (PRIMARY) HYPERTENSION 06/12/2018 JOAN DAVID, MANNY Lofton Ot I25.10 ATHSCL HEART DISEASE OF [place] CORONARY 06/12/2018 JOAN DAVID, MANNY Lofton Ot 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 BILATERAL [place] 06/12/2018 MANNY MEIER Ot E78.5 HYPERLIPIDEMIA, UNSPECIFIED 06/12/2018 MANNY MEIER Ot 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 06/12/2018 MANNY MEIER Ot I10 ESSENTIAL (PRIMARY) HYPERTENSION 06/12/2018 MANNY MEIER Ot I25.10 ATHSCL HEART DISEASE OF [place] CORONARY 06/12/2018 WILL MEHTA MD Ot C91.10 CHRONIC LYMPHOCYTIC LEUK OF B-CELL TYPE 06/12/2018 WILL MEHTA MD, Ot D50.9 IRON DEFICIENCY ANEMIA, UNSPECIFIED 06/12/2018 WILL MEHTA MD, Ot I25.10 ATHSCL HEART DISEASE OF [place] CORONARY 06/12/2018 WILL MEHTA MD Ot K21.9 GASTRO-ESOPHAGEAL REFLUX DISEASE WITHOUT 06/12/2018 WILL MEHTA MD, Ot Z79.899 OTHER RESIDENCY PROGRAM COORDINATOR (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 THERAPY 06/12/2018 WILL MEHTA MD, Ot Z95.1 PRESENCE OF AORTOCORONARY BYPASS GRAFT 06/12/2018 AYANA LIAO MD, Ot M75.21 BICIPITAL TENDINITIS, RIGHT SHOULDER 06/12/2018 AYANA LIAO MD Ot S42.291D OTH DISP FX OF UPPER END R HUMER, SUBS F 06/12/2018 AYANA LIAO MD, Ot S42.491D OT DISP FX OF LOWER END R HUMER, SUBS F 06/12/2018 AYANA LIAO MD, Ot S46.811A STRAIN OF MUSC/FASC/TEND AT SHLDR/UP ARM 06/12/2018 AYANA LIAO MD, Ot Z91.81 HISTORY OF FALLING 06/13/2018 MANNY MEIER Ot E78.5 HYPERLIPIDEMIA, UNSPECIFIED 06/13/2018 MANNY MEIER Ot I10 ESSENTIAL (PRIMARY) HYPERTENSION 06/13/2018 MANNY MEIER Ot I25.10 ATHSCL HEART DISEASE OF [place] CORONARY 07/15/2018 WILL MEHTA MD, Ot 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 Results Test Result Range Complete blood count (CBC) with automated white blood cell (WBC) differential - 06/30/16 20:47 Blood leukocytes automated count (number/volume) 24.9 10*3/uL 4.3-11.0 Blood erythrocytes automated count (number/volume) 3.43 10*6/uL 4.35-5.85 Venous blood hemoglobin measurement (mass/volume) 12.1 [...] Automated blood platelet mean volume measurement 11.7 [foz_us] 7.4-10.4 Automated blood neutrophils/100 leukocytes 18 % [...] Serum or plasma sodium measurement (moles/volume) 139 mmol/L 135-145 Serum or plasma potassium measurement (moles/volume) 4.0 mmol/L 3.6-5.0 Serum or plasma chloride measurement (moles/volume) 106 mmol/L 98-107 Carbon dioxide 23 mmol/L 21-32 Serum or plasma anion gap determination (moles/volume) 10 mmol/L 5-14 Serum or plasma urea nitrogen measurement (mass/volume) 23 mg/dL 7-18 Serum or plasma creatinine measurement (mass/volume) 0.90 mg/dL 0.60-1.30 Serum or plasma urea nitrogen/creatinine mass [...] or plasma troponin i.cardiac measurement (mass/volume) < ng/ mL <0.30 Blood manual differential performed detection - 06/30/16 20:47 Manual blood segmented neutrophils/100 leukocytes 16 % NRG Manual blood lymphocytes/100 leukocytes 84 % NRG Blood erythrocyte morphology finding identification NORMAL NRG Serum or plasma amylase measurement (enzymatic activity/volume) - 06/30/16 20: 47 Serum or plasma amylase measurement (enzymatic activity/volume) 41 U /L 25-125 Lipase - 06/30/16 20:47 Lipase 14 [...] 04:35 Blood leukocytes automated count (number/volume) 22.2 10*3/uL 4.3-11.0 Blood erythrocytes automated count (number/volume) 3.26 10*6/uL 4.35-5.85 Venous blood hemoglobin measurement (mass/volume) 11.2 [...] Automated blood platelet mean volume measurement 11.8 [foz_us] 7.4-10.4 Automated blood neutrophils/100 leukocytes 17 % [...] Serum or plasma sodium measurement (moles/volume) 142 mmol/L 135-145 Serum or plasma potassium measurement (moles/volume) 4.1 mmol/L 3.6-5.0 Serum or plasma chloride measurement (moles/volume) 108 mmol/L 98-107 Carbon dioxide 24 mmol/L 21-32 Serum or plasma anion gap determination (moles/volume) 10 mmol/L 5-14 Serum or plasma urea nitrogen measurement (mass/volume) 21 mg/dL 7-18 Serum or plasma creatinine measurement (mass/volume) 0.80 mg/dL 0.60-1.30 Serum or plasma urea nitrogen/creatinine mass [...] or plasma troponin i.cardiac measurement (mass/volume) < ng/ mL <0.30 Myoglobin, serum - 07/01/16 04:35 Myoglobin, serum 33.6 ng/mL 10.0-92.0 Lipid 1996 panel - 07/01/16 04:35 Serum or plasma triglyceride measurement (mass/volume) 121 mg/dL <150 Serum or plasma cholesterol measurement (mass/volume) 191 mg/dL < 200 Serum or plasma cholesterol in HDL measurement (mass/volume) 40 mg/ dL 40-60 Cholesterol in LDL [mass/volume] in serum or plasma by direct assay 129 mg/dL 1-129 Serum or plasma cholesterol in VLDL measurement (mass/volume) 24 mg/ dL 5-40 Complete blood count (CBC) with automated white blood cell (WBC) differential - 07/03/16 00:33 Blood leukocytes automated count (number/volume) 27.2 10*3/uL 4.3-11.0 Blood erythrocytes automated count (number/volume) 3.37 10*6/uL 4.35-5.85 Venous blood hemoglobin measurement (mass/volume) 11.6 [...] Automated blood platelet mean volume measurement 11.7 [foz_us] 7.4-10.4 Automated blood neutrophils/100 leukocytes 15 % [...] Serum or plasma sodium measurement (moles/volume) 140 mmol/L 135-145 Serum or plasma potassium measurement (moles/volume) 4.8 mmol/L 3.6-5.0 Serum or plasma chloride measurement (moles/volume) 107 mmol/L 98-107 Carbon dioxide 21 mmol/L 21-32 Serum or plasma anion gap determination (moles/volume) 12 mmol/L 5-14 Serum or plasma urea nitrogen measurement (mass/volume) 31 mg/dL 7-18 Serum or plasma creatinine measurement (mass/volume) 1.01 mg/dL 0.60-1.30 Serum or plasma urea nitrogen/creatinine mass [...] or plasma troponin i.cardiac measurement (mass/volume) < ng/ mL <0.30 Serum or plasma amylase measurement (enzymatic activity/volume) - 07/03/16 00: 33 Serum or plasma amylase measurement (enzymatic activity/volume) 40 U /L 25-125 Lipase - 07/03/16 00:33 Lipase 12 U/L 8-78 Serum or plasma lithium measurement (moles/volume) - 07/03/16 00:33 BNP level 86.5 pg/mL <100.0 Complete blood count (CBC) with automated white blood cell (WBC) differential - 07/03/16 05:59 Blood leukocytes automated count (number/volume) 26.4 10*3/uL 4.3-11.0 Blood erythrocytes automated count (number/volume) 3.20 10*6/uL 4.35-5.85 Venous blood hemoglobin measurement (mass/volume) 11.1 [...] Automated blood platelet mean volume measurement 11.5 [foz_us] 7.4-10.4 Automated blood neutrophils/100 leukocytes 14 % [...] Serum or plasma sodium measurement (moles/volume) 141 mmol/L 135-145 Serum or plasma potassium measurement (moles/volume) 4.5 mmol/L 3.6-5.0 Serum or plasma chloride measurement (moles/volume) 107 mmol/L 98-107 Carbon dioxide 25 mmol/L 21-32 Serum or plasma anion gap determination (moles/volume) 9 mmol/L 5-14 Serum or plasma urea nitrogen measurement (mass/volume) 30 mg/dL 7-18 Serum or plasma creatinine measurement (mass/volume) 0.86 mg/dL 0.60-1.30 Serum or plasma urea nitrogen/creatinine mass [...] or plasma troponin i.cardiac measurement (mass/volume) < ng/ mL <0.30 Complete urinalysis with reflex to culture - 10/10/16 09:30 Urine color determination YELLOW NRG Urine clarity determination CLEAR NRG Urine pH measurement by test strip 6.5 5-9 Specific gravity of urine by test strip 1.010 1.016- 1.022 Urine protein assay by test strip, semi-quantitative [...] 09:35 Blood leukocytes automated count (number/volume) 18.1 10*3/uL 4.3-11.0 Blood erythrocytes automated count (number/volume) 3.44 10*6/uL 4.35-5.85 Venous blood hemoglobin measurement (mass/volume) 12.3 [...] Automated blood platelet mean volume measurement 11.6 [foz_us] 7.4-10.4 Automated blood neutrophils/100 leukocytes 14 % [...] Serum or plasma sodium measurement (moles/volume) 142 mmol/L 135-145 Serum or plasma potassium measurement (moles/volume) 4.1 mmol/L 3.6-5.0 Serum or plasma chloride measurement (moles/volume) 105 mmol/L 98-107 Carbon dioxide 26 mmol/L 21-32 Serum or plasma anion gap determination (moles/volume) 11 mmol/L 5-14 Serum or plasma urea nitrogen measurement (mass/volume) 21 mg/dL 7-18 Serum or plasma creatinine measurement (mass/volume) 0.86 mg/dL 0.60-1.30 Serum or plasma urea nitrogen/creatinine mass [...] or plasma troponin i.cardiac measurement (mass/volume) < ng/ mL <0.30 Myoglobin, serum - 10/10/16 09:35 Myoglobin, [...] Urine pH measurement by test strip 6 5-9 Specific gravity of urine by test strip 1.015 1.016- 1.022 Urine protein assay by test strip, semi-quantitative [...] culture - 11/28/16 07:22 Bacterial urine culture [id number] NRG COLONY COUNT >100,000/ML NR FTX;REPORTABLE SENSITIVITY REPORTED 11/29/16 17:[address] [facility] URINE CULTURE RESULTS PLUS [facility] Bacterial susceptibility panel - 11/28/16 07:22 Gentamicin susceptibility test by minimum inhibitory concentration < = NRG Trimethoprim/sulfamethoxazole susceptibility test by minimum inhibitoryconcentration <= NRG Ampicillin susceptibility test by minimum inhibitory concentration R NRG Tobramycin susceptibility test by minimum inhibitory concentration < = NRG Cefazolin susceptibility test by minimum inhibitory concentration < = NRG Ceftriaxone susceptibility test by minimum inhibitory concentration <= NRG Ampicillin/sulbactam susceptibility test by minimum inhibitory concentration 4 NRG Piperacillin/tazobactam susceptibility test by minimum inhibitory concentration <= NRG Ciprofloxacin susceptibility test by minimum inhibitory concentration <= NRG Meropenem susceptibility test by minimum inhibitory concentration < = NRG Nitrofurantoin susceptibility test by minimum inhibitory concentration <= NRG Aztreonam susceptibility test by minimum inhibitory concentration < = NRG Extended spectrum beta lactamase (ESBL) producing bacteria susceptibility test by minimum inhibitory concentration - [facility] Automated blood complete blood count (hemogram) panel - 11/28/16 07:28 Blood leukocytes automated count (number/volume) 19.8 10*3/uL 4.3-11.0 Blood erythrocytes automated count (number/volume) 3.47 10*6/uL 4.35-5.85 Venous blood hemoglobin measurement (mass/volume) 12.7 [...] Automated blood platelet mean volume measurement 11.8 [foz_us] 7.4-10.4 PT panel in platelet poor plasma [...] Serum or plasma sodium measurement (moles/volume) 141 mmol/L 135-145 Serum or plasma potassium measurement (moles/volume) 4.3 mmol/L 3.6-5.0 Serum or plasma chloride measurement (moles/volume) 106 mmol/L 98-107 Carbon dioxide 25 mmol/L 21-32 Serum or plasma anion gap determination (moles/volume) 10 mmol/L 5-14 Serum or plasma urea nitrogen measurement (mass/volume) 22 mg/dL 7-18 Serum or plasma creatinine measurement (mass/volume) 1.00 mg/dL 0.60-1.30 Serum or plasma urea nitrogen/creatinine mass [...] Serum or plasma cholesterol measurement (mass/volume) 211 mg/dL < 200 Serum or plasma cholesterol in HDL measurement (mass/volume) 44 mg/ dL 40-60 Cholesterol in LDL [mass/volume] in serum or plasma by direct assay 130 mg/dL 1-129 Serum or plasma cholesterol in VLDL measurement (mass/volume) 32 mg/ dL 5-40 Comprehensive metabolic panel - 11/06/17 09:15 Serum or plasma sodium measurement (moles/volume) 143 mmol/L 135-145 Serum or plasma potassium measurement (moles/volume) 4.3 mmol/L 3.6-5.0 Serum or plasma chloride measurement (moles/volume) 106 mmol/L 98-107 Carbon dioxide 27 mmol/L 21-32 Serum or plasma anion gap determination (moles/volume) 10 mmol/L 5-14 Serum or plasma urea nitrogen measurement (mass/volume) 21 mg/dL 7-18 Serum or plasma creatinine measurement (mass/volume) 0.85 mg/dL 0.60-1.30 Serum or plasma urea nitrogen/creatinine mass ratio 25 NRG Serum or plasma creatinine measurement with calculation of estimated glomerular filtration rate > NRG Serum or plasma glucose measurement (mass/volume) 113 mg/dL 70-105 Serum or plasma calcium measurement (mass/volume) 9.4 mg/dL 8.5-10.1 Serum or plasma total bilirubin measurement (mass/volume) 0.9 mg/dL 0.1-1.0 Serum or plasma alkaline phosphatase measurement (enzymatic activity/volume) 76 U/L 40-136 Serum or plasma aspartate aminotransferase measurement (enzymatic activity/ volume) 19 U/L 5-34 Serum or plasma alanine aminotransferase measurement (enzymatic activity/volume ) 20 U/L 0-55 Serum or plasma protein measurement (mass/volume) 6.2 g/dL 6.4-8.2 Serum or plasma albumin measurement (mass/volume) 4.0 g/dL 3.2-4.5 Lipid 1996 panel - 11/06/17 09:15 Serum or plasma triglyceride measurement (mass/volume) 154 mg/dL <150 Serum or plasma cholesterol measurement (mass/volume) 201 mg/dL < 200 Serum or plasma cholesterol in HDL measurement (mass/volume) 42 mg/ dL 40-60 Cholesterol in LDL [mass/volume] in serum or plasma by direct assay 116 mg/dL 1-129 Serum or plasma cholesterol in VLDL measurement (mass/volume) 31 mg/ dL 5-40 Encounters ACCT No. Visit Date/Time Discharge Status Pt. Type Provider Facility Loc./Unit Complaint [id number] 06/12/2018 08:07:00 06/12/2018 23:59:59 CLS Outpatient MANNY MEIER [facility] LAB CAD [id number] 06/03/2018 12:49:00 06/03/2018 23:59:59 CLS Outpatient WILL MEHTA MD [facility] ONC LABS [id number] 04/24/2018 08:44:00 04/24/2018 23:59:59 CLS Outpatient AYANA LIAO MD [facility] RAD RT SHOULDER,ROTATOR CUFF TEAR [id number] 03/11/2018 12:48:00 03/17/2018 00:01:00 DIS Outpatient WILL MEHTA MD [facility] ONC LABS [id number] 02/19/2018 08:59:00 02/19/2018 23:59:59 CLS Outpatient MANNY MEIER [facility] CARD CAD [id number] 09/03/2017 09:58:00 12/02/2017 00:01:00 DIS Outpatient WILL MEHTA MD [facility] ONC LABS [id number] 11/11/2017 12:00:00 11/11/2017 23:59:59 CLS Preadmit MANNY MEIER [facility] CARD I25.10,I65.23, I10,E78.2 [id number] 11/10/2017 13:39:00 11/10/2017 15:10:00 DIS Emergency DEXTER LAU, AAMIR Conley [facility] ER FALL [id number] 11/06/2017 09:00:00 11/06/2017 23:59:59 CLS Outpatient MANNY MEIER [facility] LAB I25.10 I65.23 I10 E78.2 [id number] 08/22/2017 10:28:00 08/22/2017 23:59:59 CLS Outpatient ANASTASIA MEDRANO MD [facility] RAD M25.552 [id number] 06/05/2017 14:23:00 07/04/2017 00:01:00 DIS Outpatient WILL MEHTA MD [facility] ONC LABS [id number] 03/05/2017 14:23:00 03/12/2017 00:01:00 DIS Outpatient WILL MEHTA MD [facility] ONC LABS [id number] 01/13/2017 13:49:00 01/13/2017 16:58:00 DIS Emergency LORA DICKINSON [facility] ER L HIP/BACK PAIN [id number] 09/12/2016 13:06:00 12/11/2016 00:01:00 DIS Outpatient IWLL MEHTA MD [facility] ONC LABS [id number] 11/28/2016 07:00:00 11/28/2016 14:00:00 DIS Outpatient ELISABETH ARAYA MD [facility] ABN STRESS TEST [id number] 10/31/2016 12:22:00 10/31/2016 23:59:59 CLS Outpatient MANNY MEIER [facility] CARD CAD,PETRONA,HTN [id number] 10/25/2016 08:43:00 10/25/2016 23:59:59 CLS Outpatient MANNY MEIER [facility] CARD CAD,PETRONA,HTN [id number] 10/10/2016 08:57:00 10/10/2016 12:58:00 DIS Emergency ALEXANDRA ALEXANDRA MD [facility] ER SOA/IRR HEART RATE [id number] 10/02/2016 10:00:00 10/02/2016 23:59:59 CLS Preadmit ELISABETH ARAYA MD [facility] CARD PALPITATIONS [id number] 07/03/2016 09:15:00 10/01/2016 00:01:00 DIS Outpatient ELISABETH ARAYA MD [facility] CARD PALPITATIONS [id number] 06/06/2016 12:50:00 08/31/2016 16:16:00 DIS Outpatient WILL MEHTA MD [facility] ONC LABS [id number] 07/03/2016 02:40:00 07/03/2016 08:18:00 DIS Inpatient ELISABETH ARAYA MD [facility] ICU PSVT [id number] 06/30/2016 21:45:00 07/01/2016 10:10:00 DIS Inpatient PAIGE BLOCK MD [facility] ICU CHEST PAIN, NEW ONSET SVT [id number] 06/29/2016 07:00:00 06/29/2016 08:04:00 DIS Outpatient LASHAUN ELIAS MD [facility] CARD SPONDYLOSIS [id number] 06/26/2016 12:47:00 06/26/2016 23:59:59 CLS Outpatient LASHAUN ELIAS MD [facility] RAD LOW BACK PAIN [id number] 04/09/2016 14:36:00 06/04/2016 00:01:00 DIS Outpatient WILL MEHTA MD [facility] ONC LABS [id number] 05/30/2016 11:42:00 05/30/2016 23:59:59 CLS Outpatient MONIKA DARBY ACCELERATOR OPERATOR [facility] RT SOB [id number] 05/23/2016 12:34:00 05/23/2016 23:59:59 CLS Outpatient MONIKA DARBY ACCELERATOR OPERATOR [facility] RAD SOB [id number] 04/16/2016 14:27:00 04/16/2016 23:59:59 CLS Outpatient PAIGE BLOCK MD [facility] RAD FALL [id number] 02/13/2016 10:38:00 02/13/2016 23:59:59 CLS Outpatient MANNY MEIER [facility] LAB HTN [id number] 02/02/2016 13:22:00 02/02/2016 23:59:59 CLS Outpatient PAIGE BLOCK MD [facility] RAD COUGH PERSISTENT [id number] 12/13/2015 14:18:00 12/19/2015 00:01:00 DIS Outpatient WILL MEHTA MD [facility] ONC LABS [id number] 11/07/2015 06:37:00 11/07/2015 13:45:00 DIS Outpatient ELISABETH ARAYA MD [facility] CATH CAD [id number] 11/02/2015 11:03:00 11/02/2015 23:59:59 CLS Outpatient MANNY MEIER [facility] CARD CAD,CLL,PETRONA, HTN [id number] 10/31/2015 14:58:00 10/31/2015 23:59:59 CLS Outpatient MANNY MEIER [facility] CARD CAD,CLL,PETRONA, HTN [id number] 10/12/2015 09:38:00 10/12/2015 23:59:59 CLS Outpatient MANNY MEIER [facility] LAB CAD,CLL, CAROTID ARTERY STENOSIS,HTN [id number] 08/23/2015 12:50:00 08/24/2015 00:01:00 DIS Outpatient WILL MEHTA MD [facility] ONC LABS [id number] 05/31/2015 14:30:00 08/01/2015 00:01:00 DIS Outpatient WILL MEHTA MD [facility] ONC LABS [id number] 05/13/2015 12:44:00 05/13/2015 23:59:59 CLS Outpatient KRISSY DOAN [facility] ONC [id number] 03/08/2015 14:40:00 03/21/2015 00:01:00 DIS Outpatient WILL MEHTA MD [facility] ONC LABS [id number] 08/31/2014 13:25:00 11/29/2014 00:01:00 DIS Outpatient WILL MEHTA MD [facility] ONC LABS [id number] 11/05/2014 21:45:00 11/06/2014 10:00:00 DIS Inpatient PAIGE BLOCK MD [facility] 4TH BRONCHITIS,LEUKOCYTOSIS [id number] 06/08/2014 13:44:00 07/12/2014 00:01:00 DIS Outpatient WILL MEHTA MD [facility] ONC LABS [id number] 06/16/2014 15:24:00 06/16/2014 23:59:59 CLS Outpatient PAIGE BLOCK MD [facility] RAD PAIN, MED SHAFT W/OLD FX [id number] 03/03/2014 13:40:00 03/09/2014 00:01:00 DIS Outpatient WILL MEHTA MD [facility] ONC LABS [id number] 01/08/2014 07:38:00 01/08/2014 14:32:00 DIS Outpatient TINO KAPOOR DO [facility] SDC GALLSTONES [id number] 01/07/2014 08:03:00 01/07/2014 23:59:59 CLS Outpatient TINO KAPOOR DO [facility] PREOP GALLSTONES [id number] 12/31/2013 16:01:00 12/31/2013 23:59:59 CLS Outpatient PAIGE BLOCK MD [facility] RAD R UQ PAIN [id number] 09/09/2013 13:40:00 12/08/2013 00:01:00 DIS Outpatient WILL MEHTA MD [facility] ONC LABS [id number] 09/27/2013 15:39:00 09/27/2013 17:30:00 DIS Emergency AWA HOOPER MD [facility] ER FALL; R ARM PAIN [id number] 08/17/2013 10:49:00 08/17/2013 23:59:59 CLS Outpatient PAIGE BLOCK MD [facility] RAD SCREENING [id number] 06/24/2013 13:13:00 07/06/2013 00:01:00 DIS Outpatient WILL MEHTA MD [facility] ONC LABS [id number] 05/06/2013 12:53:00 05/06/2013 23:59:59 CLS Outpatient PAIGE BLOCK MD [facility] LAB [id number] 03/23/2013 04:35:00 03/23/2013 23:59:59 CLS Outpatient PAIGE BLOCK MD [facility] RAD PAIN IN L BACK [id number] 03/03/2013 12:40:00 Document Registration [id number] 12/09/2012 13:11:00 Document Registration [id number] 12/09/2012 13:00:00 Document Registration [id number] 09/16/2012 09:53:00 Document Registration [id number] 09/16/2012 09:30:00 Document Registration [id number] 09/09/2012 13:15:00 Document Registration [id number] 08/14/2012 10:50:00 Document Registration [id number] 07/25/2012 14:23:00 Document Registration [id number] 06/24/2012 16:21:00 Document Registration [id number] 06/15/2012 17:28:00 Document Registration [id number] 06/03/2012 10:30:00 Document Registration [id number] 05/19/2012 11:53:00 Document Registration [id number] 05/12/2012 11:57:00 Document Registration [id number] 03/31/2012 06:41:00 Document Registration [id number] 03/07/2012 11:15:00 Document Registration [id number] 03/07/2012 10:31:00 Document Registration [id number] 03/07/2012 10:28:00 Document Registration [id number] 12/31/2011 00:00:00 Document Registration [id number] 12/13/2011 14:16:00 Document Registration [id number] 11/01/2011 14:49:00 Document Registration [id number] 11/01/2011 14:46:00 Document Registration [id number] 09/06/2011 15:04:00 Document Registration [id number] 06/04/2011 14:06:00 Document Registration [id number] 01/08/2011 12:53:00 Document Registration [id number] 08/28/2010 15:47:00 Document Registration [id number] 08/23/2015 12:50:23 ACT Document Registration
[2018-08-04] MEDS: NS IV 1000 ML 1,000 ML IV SCH ×4 (07:17→18:43)
[2018-08-04 07:18] LABS: MEAN PLATELET VOLUME 11.9 FL (7.4-10.4); RED BLOOD COUNT 3.38 10^6/uL (4.35-5.85); RED CELL DISTRIBUTION WIDTH 14.3 % (10.0-14.5); WHITE BLOOD COUNT 16.9 10^3/uL (4.3-11.0)
[2018-08-04 07:21] LABS: BILIRUBIN,URINE NEGATIVE (NEGATIVE); CLARITY,URINE CLEAR; COLOR,URINE YELLOW; GLUCOSE, URINE (UA) NEGATIVE (NEGATIVE); KETONES,URINE NEGATIVE (NEGATIVE); LEUKOCYTE ESTERASE ,URINE 2+ (NEGATIVE); NITRITE,URINE NEGATIVE (NEGATIVE); PH,URINE 6.5 (5-9); PROTEIN,URINE NEGATIVE (NEGATIVE); UROBILINOGEN,URINE 1 MG/DL (NORMAL)
[2018-08-04] MEDS ORDERED: SPIR25TA5 PO (07:27)
[2018-08-04] MEDS ORDERED: ACET325T49 PO (07:27)
[2018-08-04 07:29] LABS: PROTHROMBIN TIME PATIENT 12.7 SEC (12.2-14.7)
[2018-08-04 07:35] LABS: BACTERIA,URINE FEW /HPF; RBC,URINE RARE /HPF; WBC,URINE 25-50 /HPF
[2018-08-04] MEDS ORDERED: fentaNYL INJECTION 100 MCG/2 ML AMP ONE (07:35)
[2018-08-04] MEDS ORDERED: MIDAZOLAM 5 MG/5 ML (VERSED) VIAL ONE (07:35)
[2018-08-04 07:37] LABS: ALANINE AMINOTRANSFERASE 20 U/L (0-55); ALBUMIN 4.2 GM/DL (3.2-4.5); ALKALINE PHOSPHATASE 72 U/L (40-136); BILIRUBIN,TOTAL 1.1 MG/DL (0.1-1.0); BUN/CREATININE RATIO 28; CALCIUM 9.6 MG/DL (8.5-10.1); CARBON DIOXIDE 27 MMOL/L (21-32); CHLORIDE 104 MMOL/L (98-107); CHOLESTEROL 207 MG/DL (< 200); CREATININE SERUM 0.87 MG/DL (0.60-1.30); GFR ESTIMATED > 60; GLUCOSE 119 MG/DL (70-105); HDL CHOLESTEROL 42 MG/DL (40-60); POTASSIUM 4.3 MMOL/L (3.6-5.0); SODIUM 141 MMOL/L (135-145); TOTAL PROTEIN 6.3 GM/DL (6.4-8.2); TRIGLYCERIDES 137 MG/DL (<150); VLDL CHOLESTEROL 27 MG/DL (5-40)
--- NOTE | 2018-08-04 07:47 | Cardiac Procedure Note-CS/ASA ---
Pre-Procedure Note Pre-Op Procedure Note H&P Reviewed The H&P was reviewed, patient examined and no changes noted. Date H&P Reviewed: Aug 04, 2018 Time H&P Reviewed: 07:47 Conscious Sedation Pre-Proced Time Reviewed: 07:47 ASA Class: 3 Airway Mallampati Classification: ([place] appropriate class) I. II. III, IV Lungs Heart ASA score ASA 1: a normal healthy patient ASA 2: a patient with a mild systemic disease (mid diabetes, controlled hypertension, obesity x ASA 3: a patient with a severe systemic disease that limits activity (angina , COPD, prior Myocardial infarction) ASA 4: a patient with an incapacitating disease that is a constant threat to life (CHF, renal failure) ASA 5: a moribund patient not expected to survive 24 hrs. (ruptured aneurysm) ASA 6: a declared brain patient whose organs are being harvested. For emergent operations, add the letter E after the classification Grade 3 Sedation Plan: Analgesia, Amnesia, Plan communicated to team members, Discussed options with patient/fam, Discussed risks with patient/fam Note The patient is an appropriate candidate to undergo the planned procedure, sedation, and anesthesia. The patient immediately re-assessed prior to indication. ELISABETH ARAYA MD Aug 04, 2018 07:47
--- NOTE | 2018-08-04 07:54 | Diagnostic Imaging Report ---
Clinical indication: Patient with CAD, abnormal stress and hypertension, shortness of breath. Exam: Portable chest x-ray upright view. Comparison: Portable chest x-ray upright view dated 11/28/2016. Findings: Stable mild bibasilar atelectasis or scarring. There is no interval lung infiltrate. Pulmonary vasculature and cardiac silhouettes within normal limits. Stable postop changes to the chest with sternotomy wires. There are degenerative spurs involving the thoracic spine. Impression: Stable chest x-ray exam with no radiographic evidence of acute cardiopulmonary process. Dictated by: Dictated on workstation # [id number]
--- NOTE | 2018-08-04 08:41 | Cardiac Cath Report ---
Cardiac Cath Report Physician (s)/Warehouse Specialist (s) Physician ELISABETH ARAYA MD Pre-Procedure Diagnosis Pre-Procedure Diagnosis: SYMPTOMATIC CHOLELITHIASIS Post-Procedure Note Procedure Start Date: Aug 04, 2018 Name of Procedure: Left heart catheterization, vein graft angiogram, REYES FFR to the vein graft of the right coronary artery Findings/Procedure Note PROCEDURE NOTE: After explaining the procedure to the patient, all pros and cons were explained , all questions were answered. The patient signed the consent and then she was placed on the cardiac catheterization laboratory. Groin was prepped SL fashion local anesthesia was used. Sheath placed in the right femoral artery. Rajwinder right and left catheter were used to access the coronary system, Rajwinder right catheter was used to evaluate the vein graft and REYES Patient was given 6000 units of heparin, FR guide was used, FFR wire was used to evaluate the gradient which was 0.96, patient had her ischemia at the anterior wall on stress test, there was borderline lesion in the vein graft to the right coronary artery and I elected to evaluated the baseline gradient which was not significant. At that point I decided to continue with conservative management. At the end of the procedure the sheath was removed. Closure device was used FINDINGS: Hemodynamics LV pressure was not measured Aorta 113/50 mean of 73 ANATOMY: Left Main has moderate disease Left Anterior Descending has patent stent proximally with mild to moderate disease distally, the REYES is atretic but still have flow in the distal LAD Left Circumflex has mild disease nonobstructive disease Right Coronory Artery is occluded proximally, the vein graft to the right coronary artery has a patent stent distally, small vessel disease distally, the proximal portion of the vein graft has moderate stenosis, FFR was 0.96 area to CONCLUSION: 1. Patent stent in the proximal LAD was small vessel disease distally, the REYES to the LAD is atretic but still have some flow distally, nonobstructive disease 2. Patent vein graft to the right coronary artery the stent in the vein graft distally is patent, small vessel disease at the [place] [employer] [place] right coronary artery distally, proximal portion of the vein graft has 50-60 percent stenosis, nonobstructive disease, FFR was 0.96 3. Mild disease in the circumflex artery nonobstructive disease 4. Patient is known to have aortic valve stenosis. DISCUSSION AND RECOMMENDATIONS Medical therapy is recommended no intervention is needed Anesthesia Type: Conscious Sedation Estimated blood loss (mL): 10 ml Contrast Amount: 100 ml Total Radiation Dose: 995 mGy Post-Procedure Diagnosis Post-operative diagnosis: Shortness of breath Coronary artery disease Hypertension Hyperlipidemia ELISABETH ARAYA MD Aug 04, 2018 08:41
[2018-08-04] MEDS ORDERED: PATIENT MAY USE OWN MEDS, ALL PO SCH (08:45)
[2018-08-04] MEDS ORDERED: FUROSEMIDE 40 MG (LASIX) TAB PO SCH (10:28)
[2018-08-04] MEDS ORDERED: ISOSORBIDE MONONITRATE 30 MG (IMDUR) TAB PO SCH (10:32)
[2018-08-04] MEDS ORDERED: PANTOPRAZOLE 40 MG (PROTONIX) TAB PO SCH (10:32)
[2018-08-04] MEDS: ISOSORBIDE MONONITRATE 30 MG (IMDUR) TAB PO SCH ×2 (13:19→13:23)
[2018-08-04] MEDS: FUROSEMIDE 40 MG (LASIX) TAB PO SCH ×2 (13:20→16:38)
[2018-08-04] MEDS: PANTOPRAZOLE 40 MG (PROTONIX) TAB PO SCH (13:23)
[2018-08-05] VITALS: BP 128/59
[2018-08-05] MEDS: NS IV 1000 ML 1,000 ML IV SCH (03:29)
[2018-08-05 04:00] VITALS: BP 137/71
[2018-08-05 05:59] LABS: HEMOGLOBIN 10.1 G/DL (11.5-16.0); MEAN PLATELET VOLUME 11.7 FL (7.4-10.4); RED BLOOD COUNT 2.86 10^6/uL (4.35-5.85); RED CELL DISTRIBUTION WIDTH 14.4 % (10.0-14.5); WHITE BLOOD COUNT 13.1 10^3/uL (4.3-11.0)
[2018-08-05 06:17] LABS: BUN/CREATININE RATIO 26; CALCIUM 8.5 MG/DL (8.5-10.1); CARBON DIOXIDE 22 MMOL/L (21-32); CHLORIDE 109 MMOL/L (98-107); CREATININE SERUM 0.78 MG/DL (0.60-1.30); GFR ESTIMATED > 60; GLUCOSE 108 MG/DL (70-105); POTASSIUM 3.3 MMOL/L (3.6-5.0); SODIUM 143 MMOL/L (135-145)
--- NOTE | 2018-08-05 07:50 | Cardiology Progress Note ---
Subjective Date Seen by Provider: Aug 05, 2018 Time Seen by Provider: 07:49 Subjective/Events-last exam Patient is laying down in bed, feeling better. No chest pain was noted, groin is healing well Review of Systems General: No Chills, No Night Sweats, No Fatigue, No Malaise, No Appetite, No Other HEENT: No Head Aches, No Visual Changes, No Eye Pain, No Ear Pain, No Dysphasia , No Sinus Congestion, No Post Nasal Drip, No Sore Throat, No Other Pulmonary: No Dyspnea, No Cough, No Pleuritic Chest Pain, No Other Cardiovascular: No: Chest Pain, Palpitations, Orthopnea, Paroxysmal Noc. Dyspnea, Edema, Lt Headedness, Other Objective-Cardiology Exam Last Set of Vital Signs Vital Signs 08/04/18 08/05/18 15:49 04:00 Temp 97.1 Pulse 72 Resp 20 B/P (MAP) 137/71 (93) Pulse Ox 95 O2 Delivery Room Air O2 Flow Rate 3.00 Capillary Refill : Less Than 3 Seconds I&O Intake and Output 08/05/18 00:00 Intake Total 1140 ml Output Total 301 ml Balance 839 ml Intake Oral 240 ml IV Total 900 ml Output Urine Total 300 ml Stool Total 1 ml # Voids 1 General: Alert, Oriented X3, Cooperative HEENT: Atraumatic, PERRLA Neck: Supple, No JVD, No Thyromegaly Lungs: Clear to Auscultation, Normal Air Movement Heart: Regular Rate, Normal S1, Normal S2, No Murmurs Abdomen: Normal Bowel Sounds, Soft, No Tenderness, No Hepatosplenomegaly, No Masses Extremities: No Clubbing, No Cyanosis, No Edema, Normal Pulses, No Tenderness/ Swelling Skin: No Rashes, No Breakdown, No Significant Lesion Neuro: Normal Gait, Normal Speech, Strength at 5/5 X4 Ext, Normal Tone, Sensation Intact Psych/Mental Status: Mental Status NL, Mood NL Results Lab Laboratory Tests 08/05/18 05:29 A/P-Cardiology Admission Diagnosis Coronary artery disease Hypertension Hyperlipidemia Assessment/Plan Coronary artery disease, status post cardiac catheterization, small vessel disease. Bypass to the right coronary artery has borderline lesion, FFR was 0.96. Continue medical therapy next Hypertension, continue on current medication monitor blood pressure Hyperlipidemia, intolerant to statin Obesity, BMI 36, educated on weight loss Diabetes mellitus ELISABETH ARAYA MD Aug 05, 2018 07:50
--- NOTE | 2018-08-05 07:52 | Discharge Inst-Post CATH ---
Discharge Inst-CATH Post Cardiac Cath D/C Inst Follow Up/Plan Appointment with Dr. Pappas's office in 2-4 weeks CARDIAC CATH DISCHARGE INSTRUCTIONS *Hold Metformin for 48 hours post heart cath. ACTIVITY * Go Home directly and rest. * Limit activity of the leg (or wrist if it was used) for 7 days including aerobics, swimming, jogging, bicycling, etc. * Restrict stair-climbing for 7 days if possible, if not, climb up with your non -cath leg, then bring together on the same step. * Avoid lifting, pushing, pulling or excessive movement of the affected extremity for 7 days. * Customary sexual activity may be resumed after 2 days-use caution not to use a position that strains or causes pain to the affected extremity. * No driving for 24 hours. * NO SMOKING. * Avoid straining for bowel movements for 7 days. * Gentle walking on level ground is allowed. * Returning to work will depend on the type of procedure and the results. Your doctor will discuss this with you. CALL YOUR DOCTOR FOR ANY OF THE FOLLOWING: *If bleeding from the puncture site occurs- Apply gentle pressure to site with clean cloth and call your doctor or EMS. * If a knot or lump forms under the skin, increases in size, or causes pain. * If bruising appears to be worsening or moving further down your leg instead of disappearing. * Temperature above 101 F. CARE OF YOUR GROIN INCISION; * Bruising or purple discoloration of the skin near the puncture site is common. * You may shower only, no bathtub bathing for 5 days. Be careful to avoid slipping as your leg may feel stiff. * If a closure device was used on your femoral artery, please see the attached guide regarding care of the device and your leg. * REMOVE the dressing from your groin the next day after your procedure in the shower. CARE OF YOUR WRIST INCISION; * Bruising or purple discoloration of the skin near the puncture site is common. * You may shower. * DO NOT submerge wrist. * Remove dressing in 24 hours. ELISABETH PAPPAS MD Aug 05, 2018 07:52
[2018-08-05 08:00] VITALS: BP 113/53
[2018-08-05] MEDS: PANTOPRAZOLE 40 MG (PROTONIX) TAB PO SCH (08:37)
[2018-08-05] MEDS: FUROSEMIDE 40 MG (LASIX) TAB PO SCH (08:39)
[2018-08-05] MEDS: ISOSORBIDE MONONITRATE 30 MG (IMDUR) TAB PO SCH (08:40)
[2018-08-05] MEDS ORDERED: ASPIRIN E.C. 81 MG (ECOTRIN) TAB PO SCH (09:00)
[2018-08-05] MEDS ORDERED: SPIRONOLACTONE 25 MG (ALDACTONE) TAB PO SCH (09:00)
[2018-08-05] MEDS ORDERED: meTOprolol SUCCINATE 100 MG (TOPROL XL) TAB PO SCH (09:00)
[2018-08-05 10:40] VITALS: BP 113/53
== END 2018-08-05 10:40 | disposition home or self-care (01) ==
LOC: CATH 06:42 → ICU 09:20 → 4TH 19:02 → CATH 08-05 10:40
PROVIDERS: ATTEND Internal Medicine Cardiovascular Disease
DX: I25.10 Atherosclerotic heart disease of native coronary artery without angina pectoris (principal); I10 Essential (primary) hypertension; E78.5 Hyperlipidemia, unspecified; R06.02 Shortness of breath; E11.9 Type 2 diabetes mellitus without complications; E66.9 Obesity, unspecified; Z68.36 Body mass index [BMI] 36.0-36.9, adult; R82.99 Other abnormal findings in urine; C91.10 Chronic lymphocytic leukemia of B-cell type not having achieved remission; I65.29 Occlusion and stenosis of unspecified carotid artery; K21.9 Gastro-esophageal reflux disease without esophagitis; I35.0 Nonrheumatic aortic (valve) stenosis; R60.9 Edema, unspecified; I47.1 Supraventricular tachycardia; Z96.659 Presence of unspecified artificial knee joint; Z96.649 Presence of unspecified artificial hip joint; Z95.1 Presence of aortocoronary bypass graft
CPT/HCPCS: 36415; 71045; 80048; 80053; 80061; 81000; 85027; 85610; 85730; 87077; 87081; 87088; 87186; 93005; 93455

== ENCOUNTER 2018-09-02 12:54 | Outpatient (RCR) | payer MEDICARE ==
[~2018-09-02 12:54] MED LIST changes: +ACET325T49 PO; +SPIR25TA5 PO
[2018-09-02 13:11] LABS: BASOPHILS % (AUTO) 0 % (0-10); EOSINOPHILS # (AUTO) 0.1 10^3/uL (0.0-0.3); EOSINOPHILS % (AUTO) 1 % (0-10); HEMATOCRIT 37 % (35-52); HEMOGLOBIN 11.8 G/DL (11.5-16.0); LYMPHOCYTES # (AUTO) 7.6 X 10^3 (1.0-4.0); LYMPHOCYTES % (AUTO) 72 % (12-44); MEAN CORPUSCULAR HEMOGLOBIN 35 PG (25-34); MEAN CORPUSCULAR HGB CONC 32 G/DL (32-36); MEAN CORPUSCULAR VOLUME 109 FL (80-99); MEAN PLATELET VOLUME 11.6 FL (7.4-10.4); MONOCYTES # (AUTO) 0.4 X 10^3 (0.0-1.0); MONOCYTES % (AUTO) 3 % (0-12); NEUTROPHILS # (AUTO) 2.4 X 10^3 (1.8-7.8); NEUTROPHILS % (AUTO) 23 % (42-75); PLATELET COUNT 132 10^3/uL (130-400); RED BLOOD COUNT 3.35 10^6/uL (4.35-5.85); RED CELL DISTRIBUTION WIDTH 14.2 % (10.0-14.5); WHITE BLOOD COUNT 10.5 10^3/uL (4.3-11.0)
[2018-09-02 13:28] LABS: ALANINE AMINOTRANSFERASE 20 U/L (0-55); ALBUMIN 4.3 GM/DL (3.2-4.5); ALKALINE PHOSPHATASE 62 U/L (40-136); BILIRUBIN,TOTAL 1.1 MG/DL (0.1-1.0); BUN/CREATININE RATIO 22; CALCIUM 9.2 MG/DL (8.5-10.1); CARBON DIOXIDE 27 MMOL/L (21-32); CHLORIDE 103 MMOL/L (98-107); CREATININE SERUM 0.86 MG/DL (0.60-1.30); GFR ESTIMATED > 60; GLUCOSE 108 MG/DL (70-105); POTASSIUM 4.2 MMOL/L (3.6-5.0); SODIUM 141 MMOL/L (135-145); TOTAL PROTEIN 6.1 GM/DL (6.4-8.2)
[2018-12-02 13:14] LABS: BASOPHILS % (AUTO) 0 % (0-10); EOSINOPHILS # (AUTO) 0.1 10^3/uL (0.0-0.3); EOSINOPHILS % (AUTO) 1 % (0-10); HEMATOCRIT 36 % (35-52); HEMOGLOBIN 11.4 G/DL (11.5-16.0); LYMPHOCYTES # (AUTO) 6.7 X 10^3 (1.0-4.0); LYMPHOCYTES % (AUTO) 64 % (12-44); MEAN CORPUSCULAR HEMOGLOBIN 35 PG (25-34); MEAN CORPUSCULAR HGB CONC 32 G/DL (32-36); MEAN CORPUSCULAR VOLUME 110 FL (80-99); MONOCYTES # (AUTO) 0.6 X 10^3 (0.0-1.0); MONOCYTES % (AUTO) 5 % (0-12); NEUTROPHILS # (AUTO) 3.1 X 10^3 (1.8-7.8); NEUTROPHILS % (AUTO) 30 % (42-75); PLATELET COUNT 148 10^3/uL (130-400); RED BLOOD COUNT 3.24 10^6/uL (4.35-5.85); RED CELL DISTRIBUTION WIDTH 14.2 % (10.0-14.5); WHITE BLOOD COUNT 10.5 10^3/uL (4.3-11.0)
[2018-12-02 13:37] LABS: BILIRUBIN,TOTAL 0.9 MG/DL (0.1-1.0); CALCIUM 8.8 MG/DL (8.5-10.1); CREATININE SERUM 0.9 MG/DL (0.60-1.30); POTASSIUM 4.4 MMOL/L (3.6-5.0); TOTAL PROTEIN 5.9 GM/DL (6.4-8.2)
== END 2018-12-01 | disposition home or self-care (01) ==
LOC: ONC 12:54
PROVIDERS: ATTEND Internal Medicine Hematology & Oncology
DX: C91.10 Chronic lymphocytic leukemia of B-cell type not having achieved remission (principal); D50.9 Iron deficiency anemia, unspecified; I25.10 Atherosclerotic heart disease of native coronary artery without angina pectoris; K21.9 Gastro-esophageal reflux disease without esophagitis; Z79.899 Other long term (current) drug therapy; Z95.1 Presence of aortocoronary bypass graft
CPT/HCPCS: 36415; 80053; 85025; 99213

== ENCOUNTER 2019-02-08 15:31 | Emergency (ER) | payer MEDICARE ==
[~2019-02-08] VITALS: Ht 165.1 cm; Wt 100.2 kg
[2019-02-08 16:00] LABS: BASOPHILS % (AUTO) 0 % (0-10); EOSINOPHILS # (AUTO) 0.1 10^3/uL (0.0-0.3); EOSINOPHILS % (AUTO) 1 % (0-10); HEMATOCRIT 37 % (35-52); HEMOGLOBIN 11.8 G/DL (11.5-16.0); LYMPHOCYTES # (AUTO) 9.2 X 10^3 (1.0-4.0); LYMPHOCYTES % (AUTO) 69 % (12-44); MEAN CORPUSCULAR HEMOGLOBIN 36 PG (25-34); MEAN CORPUSCULAR HGB CONC 32 G/DL (32-36); MEAN CORPUSCULAR VOLUME 111 FL (80-99); MONOCYTES # (AUTO) 0.7 X 10^3 (0.0-1.0); MONOCYTES % (AUTO) 5 % (0-12); NEUTROPHILS # (AUTO) 3.3 X 10^3 (1.8-7.8); NEUTROPHILS % (AUTO) 25 % (42-75); PLATELET COUNT 163 10^3/uL (130-400); RED CELL DISTRIBUTION WIDTH 15.2 % (10.0-14.5); WHITE BLOOD COUNT 13.4 10^3/uL (4.3-11.0)
[2019-02-08 16:06] LABS: PROTHROMBIN TIME PATIENT 12.8 SEC (12.2-14.7)
--- NOTE | 2019-02-08 16:21 | Diagnostic Imaging Report ---
EXAM: Chest 1 view, AP/PA only. INDICATION: Shortness of breath. Weakness. COMPARISON: Chest radiograph, 11/15/2018. FINDINGS: Cardiomegaly with increasing pulmonary vascular congestion. No dense consolidation, pleural effusion or pneumothorax. Calcified aorta. Sternotomy. IMPRESSION: Cardiomegaly with increasing pulmonary vascular congestion. Dictated by: Dictated on workstation # [id number]
[2019-02-08 16:24] LABS: ALANINE AMINOTRANSFERASE 14 U/L (0-55); ALKALINE PHOSPHATASE 69 U/L (40-136); BILIRUBIN,TOTAL 0.7 MG/DL (0.1-1.0); BUN/CREATININE RATIO 22; CALCIUM 9.5 MG/DL (8.5-10.1); CARBON DIOXIDE 23 MMOL/L (21-32); CHLORIDE 103 MMOL/L (98-107); CREATININE SERUM 0.89 MG/DL (0.60-1.30); GFR ESTIMATED 60; GLUCOSE 113 MG/DL (70-105); MAGNESIUM 2.6 MG/DL (1.8-2.4); POTASSIUM 4.7 MMOL/L (3.6-5.0); SODIUM 137 MMOL/L (135-145); TOTAL PROTEIN 6.4 GM/DL (6.4-8.2)
[2019-02-08 16:31] LABS: MYOGLOBIN SERUM 28.7 NG/ML (10.0-92.0)
[2019-02-08] MEDS ORDERED: ASPIRIN 81 MG CHEW (CHILDREN'S ASA) PO ONE (17:00)
[2019-02-08] MEDS ORDERED: FUROSEMIDE 40 MG/4 ML INJ (LASIX) IVP ONE (19:30)
--- NOTE | 2019-02-08 20:27 | ED Chest Pain ---
General Chief Complaint: Respiratory Problems Stated Complaint: CP/SOB Nursing Triage Note: pt presents to ed via ems from home with reports of feeling increasingly tired since yesterday. 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 PT reports if she had to exert much energy at all she would feel soa and weak. Nursing Sepsis Screen: No Definite Risk Source: patient Exam Limitations: no limitations History of Present Illness Date Seen by Provider: Feb 08, 2019 Time Seen by Provider: 15:45 Initial Comments This 83-year-old woman presents to the emergency room via EMS with complaints of chest pain and shortness of air. She reports shortness of air for about the last 2 months. Today she woke up not feeling well at about 05:00. Later in the morning she developed chest pain with exertion as well as dyspnea on exertion. When she got up and went to lunch with her and the symptoms returned again with ambulation. She has no symptoms at rest and complains of no symptoms on arrival to the ER. She does have history of coronary artery disease, aortic stenosis, and CABG. Dr. Pappas is her telephone sterilizer. She denies any cough, fever, or lower extremity symptoms. Patient also has a history of CLL. Allergies and Home Medications Allergies Coded Allergies: Pxpculq-Jnp-Enx Reductase Inhibitor (Unverified Allergy, Unknown, 11/02/15) niacin (Unverified Allergy, Unknown, 11/02/15) Fish Containing Products (Verified Adverse Reaction, Mild, NAUSEA, 11/02/15 ) Home Medications Acetaminophen 325 Mg Tablet, 325 MG PO Q6HRS, (Reported) Aspirin 81 Mg Tablet.dr, 81 MG PO DAILY, (Reported) Cephalexin 500 Mg Capsule, 500 MG PO BID Prescribed by: AWA MON on 02/08/192122 Docusate Sodium 100 Mg Tablet, 100 MG PO QID, (Reported) Ergocalciferol (Vitamin D2) 50,000 Unit Capsule, 50,000 UNIT PO WEELY ON SAT, ( Reported) Furosemide 40 Mg Tablet, 40 MG PO BID, (Reported) Iron,Carbonyl 45 Mg Tablet, 65 MG PO DAILY, (Reported) Isosorbide Mononitrate 30 Mg Tab, 30 MG PO HS, (Reported) Metoprolol Succinate 100 Mg Tab.er.24h, 100 MG PO DAILY, (Reported) Multivitamins 1 Each Capsule, 1 EACH PO DAILY, (Reported) Pantoprazole Sodium 40 Mg Tablet.dr, 40 MG PO DAILY, (Reported) Potassium Chloride 10 Meq Tablet.sa, 20 MEQ PO QID WITH FOOD, (Reported) TAKES 2 (10 MEQ) TABLETS QID Tramadol HCl 50 Mg Tablet, 50 MG PO Q6HRS, (Reported) Patient Home Medication List Home Medication List Reviewed: Yes Review of Systems Review of Systems Constitutional: no symptoms reported EENTM: No Symptoms Reported Respiratory: See HPI Cardiovascular: See HPI Gastrointestinal: No Symptoms Reported Genitourinary: No Symptoms Reported Musculoskeletal: no symptoms reported Skin: no symptoms reported Psychiatric/Neurological: No Symptoms Reported Endocrine: No Symptoms Reported Hematologic/Lymphatic: No Symptoms Reported Past Lmoaniw-Raacgz-Kzsrfz Hx Past Med/Social Hx: Reviewed and Corrections made Patient Social History Alcohol Use: Denies Use Recreational Drug Use: No Smoking Status: Never a Smoker 2nd Hand Smoke Exposure: No Recent Foreign Travel: No Contact w/Someone Who Travel: No Recent Infectious Disease Expo: No Recent Hopitalizations: No Physical Abuse: No Sexual Abuse: No Mistreated: No Fear: No Immunizations Up To Date Tetanus Booster (TDap): Unknown Date of Pneumonia Vaccine: Sep 25, 2009 Date of Influenza Vaccine: Aug 25, 2018 Seasonal Allergies Seasonal Allergies: Yes Past Medical History Surgeries: Yes Appendectomy, Cardiac, CABG, Coronary Stent, Gallbladder, Joint Replacement, Orthopedic, Tubal Ligation Respiratory: No Cardiac: Yes Chronic Edema/Swelling, Coronary Artery Disease, Heart Attack, Heart Murmur, High Cholesterol, Hypertension, Peripheral Vascular, Valvular Heart Disease ( aortic stenosis) Neurological: No (CAROTID DISEASE) Reproductive Disorders: No DINKEY SKINNER History: Menopausal Genitourinary: No Gastrointestinal: No Musculoskeletal: Yes Arthritis, Chronic Back Pain, Fractures Endocrine: No (OBESITY) HEENT: Yes Cataract Cancer: Yes (CLL) Leukemia Did You Recieve Any Treatments: No Psychosocial: No Integumentary: No Blood Disorders: Yes (ANEMIA; CLL) Family Medical History Patient reports no known family medical history. No Pertinent Family Hx Physical Exam Vital Signs Vital Signs - First Documented 02/08/19 15:40 Temp 97.8 Pulse 89 Resp 20 B/P (MAP) 134/92 (106) Pulse Ox 95 Capillary Refill : Less Than 3 Seconds Height, Weight, BMI Height: 5'5.00" Weight: 221lbs. 6.0oz. 100.433372sg; 36.5 BMI Method:Stated General Appearance: No Apparent Distress, WD/WN, Obese HEENT: PERRL/EOMI, Normal ENT Inspection Neck: Normal Inspection Respiratory: Lungs Clear, Normal Breath Sounds, No Accessory Muscle Use, No Respiratory Distress Cardiovascular: Regular Rate, Rhythm, Systolic Murmur, Other (mild pitting edema of the legs equal bilaterally) Gastrointestinal: Normal Bowel Sounds, Non Tender, Soft Extremity: Normal Capillary Refill, Normal Inspection, Non Tender, No Calf Tenderness, Swelling (mild pitting edema of the lower legs), Other (negative Norbert) Neurologic/Psychiatric: Alert, Oriented x3, No Motor/Sensory Deficits, Normal Mood/Affect, raw silk grader II-XII Norm as Tested Skin: Normal Color, Warm/Dry Progress/Results/Core Measures Results/Orders Lab Results Laboratory Tests Test 02/08/19 15:46 02/08/19 16:11 02/08/19 20:00 Range/Units White Blood Count 13.4 H 4.3-11.0 10^3/uL Red Blood Count 3.30 L 4.35-5.85 10^6/uL Hemoglobin 11.8 11.5-16.0 G/DL Hematocrit 37 35-52 % Mean Corpuscular Volume 111 H 80-99 FL Mean Corpuscular Hemoglobin 36 H 25-34 PG Mean Corpuscular Hemoglobin Concent 32 32-36 G/DL Red Cell Distribution Width 15.2 H 10.0-14.5 % Platelet Count 163 130-400 10^3/uL Mean Platelet Volume 12.0 H 7.4-10.4 FL Neutrophils (%) (Auto) 25 L 42-75 % Lymphocytes (%) (Auto) 69 H 12-44 % Monocytes (%) (Auto) 5 0-12 % Eosinophils (%) (Auto) 1 0-10 % Basophils (%) (Auto) 0 0-10 % Neutrophils # (Auto) 3.3 1.8-7.8 X 10^3 Lymphocytes # (Auto) 9.2 H 1.0-4.0 X 10^3 Monocytes # (Auto) 0.7 0.0-1.0 X 10^3 Eosinophils # (Auto) 0.1 0.0-0.3 10^3/uL Basophils # (Auto) 0.0 0.0-0.1 10^3/uL Prothrombin Time 12.8 12.2-14.7 SEC INR Comment 1.0 0.8-1.4 Activated Partial Thromboplast Time 26 24-35 SEC Sodium Level 137 135-145 MMOL/L Potassium Level 4.7 3.6-5.0 MMOL/L Chloride Level 103 98-107 MMOL/L Carbon Dioxide Level 23 21-32 MMOL/L Anion Gap 11 5-14 MMOL/L Blood Urea Nitrogen 20 H 7-18 MG/DL Creatinine 0.89 0.60-1.30 MG/DL Estimat Glomerular Filtration Rate 60 BUN/Creatinine Ratio 22 Glucose Level 113 H 70-105 MG/DL Calcium Level 9.5 8.5-10.1 MG/DL Corrected Calcium 9.5 8.5-10.1 MG/DL Magnesium Level 2.6 H 1.8-2.4 MG/DL Total Bilirubin 0.7 0.1-1.0 MG/DL Aspartate Amino Transf (AST/SGOT) 29 5-34 U/L Alanine Aminotransferase (ALT/SGPT) 14 0-55 U/L Alkaline Phosphatase 69 40-136 U/L Myoglobin 28.7 10.0-92.0 NG/ML Troponin I < 0.028 < 0.028 <0.028 NG/ML C-Reactive Protein High Sensitivity 0.38 0.00-0.50 MG/DL B-Type Natriuretic Peptide 229.7 H <100.0 PG/ML Total Protein 6.4 6.4-8.2 GM/DL Albumin 4.0 3.2-4.5 GM/DL Urine Color YELLOW Urine Clarity SL CLOUDY Urine pH 5 5-9 Urine Specific [place] 1.015 L 1.016-1.022 Urine Protein NEGATIVE NEGATIVE Urine Glucose (UA) NEGATIVE NEGATIVE Urine Ketones NEGATIVE NEGATIVE Urine Nitrite POSITIVE H NEGATIVE Urine Bilirubin NEGATIVE NEGATIVE Urine Urobilinogen NORMAL NORMAL MG/DL Urine Leukocyte Esterase 1+ H NEGATIVE Urine RBC (Auto) NEGATIVE NEGATIVE Urine RBC NONE /HPF Urine WBC 2-5 /HPF Urine Squamous Epithelial Cells 0-2 /HPF Urine Crystals NONE /LPF Urine Bacteria LARGE H /HPF Urine Casts NONE /LPF Urine Mucus NEGATIVE /LPF Urine Culture Indicated YES My Orders Orders - AWA HOOPER MD Cbc With Automated Diff (02/08/19 15:54) Magnesium (02/08/19 15:54) Chest 1 View, Ap/Pa Only (02/08/19 15:54) Ekg Tracing (02/08/19 15:54) Cardiac Profile 1 (02/08/19 15:54) Comprehensive Metabolic Panel (02/08/19 15:54) Myoglobin Serum (02/08/19 15:54) Protime With Inr (02/08/19 15:54) Partial Thromboplastin Time (02/08/19 15:54) O2 (02/08/19 15:54) Monitor-Rhythm Ecg Trace Only (02/08/19 15:54) Lipid Panel (02/09/19 06:00) Saline Lock/Iv-Start (02/08/19 15:54) BNP (02/08/19 15:54) Aspirin Chewable Tablet (Baby Aspirin Ch (02/08/19 17:00) Hs C Reactive Protein (02/08/19 17:29) Troponin I (02/08/19 19:45) Furosemide Injection (Lasix Injection) (02/08/19 19:30) Ua Culture If Indicated (02/08/19 20:27) Urine Culture (02/08/19 16:11) Cephalexin Capsule (Keflex Capsule) (02/08/19 21:30) Medications Given in ED Current Medications Medications Dose Ordered Sig/Russ Route Start Time Stop Time Status Last Admin Dose Admin Aspirin 243 mg ONCE ONCE PO 02/08/19 17:00 02/08/19 17:01 DC 02/08/19 17:04 243 MG Furosemide 20 mg ONCE ONCE IVP 02/08/19 19:30 02/08/19 19:31 DC 02/08/19 19:34 20 MG Vital Signs/I&O 02/08/19 15:40 Temp 97.8 Pulse 89 Resp 20 B/P (MAP) 134/92 (106) Pulse Ox 95 Blood Pressure Mean: 106 Progress Progress Note #1: Progress Note Patient was seen and examined. Chest pain workup was pursued. Patient was having no further shortness of breath or chest pain in the ER. Due to patient' s significant cardiac history, I discussed the case with Dr. Mcqueen. He recommended a 4 hour troponin rule out. He also recommended giving 20 mg of Lasix followed by walking the patient and determining how she functions with oxygen saturation and symptoms. Patient had mild leukocytosis which may be due to her CLL. UA was obtained to assess for source of infection. There was some suggestion of urinary tract infection which was treated. Progress Note #2: Time: 21:22 Progress Note Patient had exercise pulse oximetry performed after return of repeat troponin which was normal. Oxygen saturation remained in the 90s with ambulation and patient denied symptoms. She was dismissed home to outpatient follow-up. Initial ECG Impression Date: Feb 08, 2019 Initial ECG Impression Time: 16:01 Initial ECG Rate: 79 Initial ECG Rhythm: Normal Sinus Initial ECG Intervals: Normal Initial ECG Impression: Normal Comment Normal sinus rhythm with no ST elevation or depression. No abnormal intervals. Left axis deviation by automated read. Diagnostic Imaging Diagonstic Imaging: Xray Plain Films/CT/US/NM/MRI: chest Comments Chest x-ray viewed by me and report reviewed. See report below: NAME: JO TORRES [facility] REC#: [id number] PT STATUS: REG ER : 1935 PHYSICIAN: AWA HOOPER MD ADMIT DATE: 02/08/19/ER Signed Date of Exam:02/08/19 CHEST 1 VIEW, AP/PA ONLY EXAM: Chest 1 view, AP/PA only. INDICATION: Shortness of breath. Weakness. COMPARISON: Chest radiograph, 11/15/2018. FINDINGS: Cardiomegaly with increasing pulmonary vascular congestion. No dense consolidation, pleural effusion or pneumothorax. Calcified aorta. Sternotomy. IMPRESSION: Cardiomegaly with increasing pulmonary vascular congestion. Dictated by: Dictated on workstation # [id number] Dict: 02/08/191618 Trans: 02/08/191701 [facility] [id number] Interpreted by: RUSSELL KELLEY MD Electronically signed by: RUSSELL KELLEY MD 02/08/191701 Departure Impression Primary Impression: Chest pain Qualified Codes: R07.9 - Chest pain, unspecified Additional Impressions: Dyspnea on exertion Urinary tract infection Qualified Codes: N39.0 - Urinary tract infection, site not specified Aortic stenosis Qualified Codes: I35.0 - Nonrheumatic aortic (valve) stenosis Pulmonary congestion Disposition: HOME, SELF-CARE Condition: Improved Departure-Patient Inst. Decision time for Depature: 21:20 Referrals: ANASTASIA MEDRANO MD (PCP/Family) Primary Care Physician Patient Instructions: Chest Pain, Urinary Tract Infection, Adult (DC) Add. Discharge Instructions: Contact your primary care provider and telephone sterilizer tomorrow to schedule follow- up. Doses of your medications including Lasix may need to be adjusted. Complete your antibiotic as prescribed. Return to care if you have worsening symptoms. All discharge instructions reviewed with patient and/or family. Voiced understanding. Scripts Cephalexin (Keflex) 500 Mg Capsule 500 MG PO BID, #14 CAP Prov: AWA HOOPER MD 02/08/19 Copy Copies To 1: ELISABETH PAPPAS MD Copies To 2: ANASTASIA MEDRANO MD, JOSHUA T MD Feb 08, 2019 20:27
[2019-02-08 20:31] LABS: BILIRUBIN,URINE NEGATIVE (NEGATIVE); COLOR,URINE YELLOW; GLUCOSE, URINE (UA) NEGATIVE (NEGATIVE); KETONES,URINE NEGATIVE (NEGATIVE); LEUKOCYTE ESTERASE ,URINE 1+ (NEGATIVE); NITRITE,URINE POSITIVE (NEGATIVE); PH,URINE 5 (5-9); PROTEIN,URINE NEGATIVE (NEGATIVE); UROBILINOGEN,URINE NORMAL (NORMAL)
[2019-02-08 20:37] LABS: BACTERIA,URINE LARGE /HPF; CLARITY,URINE SL CLOUDY; SQUAMOUS EPITHELIAL CELL,UR 0-2 /HPF
[2019-02-08] MEDS ORDERED: CEPH-507 PO (21:23)
[2019-02-08] MEDS ORDERED: CEPHALEXIN 250 MG (KEFLEX) CAP PO ONE (21:30)
[2019-02-08 23:31] VITALS: BP 130/90
== END 2019-02-08 21:43 | disposition home or self-care (01) ==
LOC: EDUNIT# 15:31 → ER 15:32
DX: I35.0 Nonrheumatic aortic (valve) stenosis (principal); R06.09 Other forms of dyspnea; R09.89 Other specified symptoms and signs involving the circulatory and respiratory systems; N39.0 Urinary tract infection, site not specified; R07.89 Other chest pain; I25.10 Atherosclerotic heart disease of native coronary artery without angina pectoris; I25.2 Old myocardial infarction; I10 Essential (primary) hypertension; E78.00 Pure hypercholesterolemia, unspecified; I73.9 Peripheral vascular disease, unspecified; Z85.6 Personal history of leukemia; Z95.1 Presence of aortocoronary bypass graft; Z88.8 Allergy status to other drugs, medicaments and biological substances; Z79.82 Long term (current) use of aspirin; Z90.49 Acquired absence of other specified parts of digestive tract; Z98.51 Tubal ligation status
CPT/HCPCS: 36415; 71045; 80053; 81000; 83735; 83874; 83880; 84484; 85025; 85610; 85730; 86141; 87077; 87088; 87186; 93005; 93041

== ENCOUNTER 2019-02-24 12:51 | Outpatient (RCR) | payer MEDICARE ==
[2018-12-02 13:14] LABS: BASOPHILS % (AUTO) 0 % (0-10); EOSINOPHILS # (AUTO) 0.1 10^3/uL (0.0-0.3); EOSINOPHILS % (AUTO) 1 % (0-10); HEMATOCRIT 36 % (35-52); HEMOGLOBIN 11.4 G/DL (11.5-16.0); LYMPHOCYTES # (AUTO) 6.7 X 10^3 (1.0-4.0); LYMPHOCYTES % (AUTO) 64 % (12-44); MEAN CORPUSCULAR HEMOGLOBIN 35 PG (25-34); MEAN CORPUSCULAR HGB CONC 32 G/DL (32-36); MEAN CORPUSCULAR VOLUME 110 FL (80-99); MONOCYTES # (AUTO) 0.6 X 10^3 (0.0-1.0); MONOCYTES % (AUTO) 5 % (0-12); NEUTROPHILS # (AUTO) 3.1 X 10^3 (1.8-7.8); NEUTROPHILS % (AUTO) 30 % (42-75); PLATELET COUNT 148 10^3/uL (130-400); RED CELL DISTRIBUTION WIDTH 14.2 % (10.0-14.5); WHITE BLOOD COUNT 10.5 10^3/uL (4.3-11.0)
[2018-12-02 13:37] LABS: BILIRUBIN,TOTAL 0.9 MG/DL (0.1-1.0); CALCIUM 8.8 MG/DL (8.5-10.1); CREATININE SERUM 0.9 MG/DL (0.60-1.30); POTASSIUM 4.4 MMOL/L (3.6-5.0); TOTAL PROTEIN 5.9 GM/DL (6.4-8.2)
[~2019-02-24 12:51] MED LIST changes: +CEPH-507 PO
[2019-02-24 13:14] LABS: BASOPHILS % (AUTO) 0 % (0-10); EOSINOPHILS # (AUTO) 0.1 10^3/uL (0.0-0.3); EOSINOPHILS % (AUTO) 1 % (0-10); HEMATOCRIT 36 % (35-52); HEMOGLOBIN 11.5 G/DL (11.5-16.0); LYMPHOCYTES # (AUTO) 8.8 X 10^3 (1.0-4.0); LYMPHOCYTES % (AUTO) 71 % (12-44); MEAN CORPUSCULAR HEMOGLOBIN 35 PG (25-34); MEAN CORPUSCULAR HGB CONC 32 G/DL (32-36); MEAN CORPUSCULAR VOLUME 110 FL (80-99); MEAN PLATELET VOLUME 11.2 FL (7.4-10.4); MONOCYTES # (AUTO) 0.5 X 10^3 (0.0-1.0); MONOCYTES % (AUTO) 4 % (0-12); NEUTROPHILS % (AUTO) 24 % (42-75); PLATELET COUNT 170 10^3/uL (130-400); RED CELL DISTRIBUTION WIDTH 14.9 % (10.0-14.5); WHITE BLOOD COUNT 12.4 10^3/uL (4.3-11.0)
[2019-02-24 13:29] LABS: ALBUMIN 4.1 GM/DL (3.2-4.5); BILIRUBIN,TOTAL 0.8 MG/DL (0.1-1.0); CALCIUM 9.4 MG/DL (8.5-10.1); CREATININE SERUM 0.95 MG/DL (0.60-1.30); POTASSIUM 4.2 MMOL/L (3.6-5.0); TOTAL PROTEIN 6.1 GM/DL (6.4-8.2)
== END 2019-03-02 | disposition home or self-care (01) ==
LOC: ONC 12:51
PROVIDERS: ATTEND Internal Medicine Hematology & Oncology
DX: C91.10 Chronic lymphocytic leukemia of B-cell type not having achieved remission (principal); D50.9 Iron deficiency anemia, unspecified; I25.10 Atherosclerotic heart disease of native coronary artery without angina pectoris; K21.9 Gastro-esophageal reflux disease without esophagitis; Z79.899 Other long term (current) drug therapy; Z95.1 Presence of aortocoronary bypass graft
CPT/HCPCS: 36415; 80053; 85025; 99213

== ENCOUNTER → 2019-06-03 | Outpatient (CLI) | payer MEDICARE | LOC: CARD 13:11 | PROVIDERS: ATTEND Physician Assistant | DX: I08.3 Combined rheumatic disorders of mitral, aortic and tricuspid valves (principal); I25.10 Atherosclerotic heart disease of native coronary artery without angina pectoris; I65.23 Occlusion and stenosis of bilateral carotid arteries; I10 Essential (primary) hypertension | CPT/HCPCS: 93306 ==

== ENCOUNTER 2019-06-29 08:14 | Outpatient (RCR) | payer MEDICARE | END 2019-07-23 | disposition home or self-care (01) | LOC: CR 08:14 | PROVIDERS: ATTEND Internal Medicine Cardiovascular Disease | DX: Z48.812 Encounter for surgical aftercare following surgery on the circulatory system (principal); Z95.5 Presence of coronary angioplasty implant and graft | CPT/HCPCS: 93798 ==

== ENCOUNTER 2019-07-31 09:23 | Inpatient (IN) | payer MEDICARE | END 2019-08-07 15:54 | LOC: ICU 08-01 11:40 → 4TH 08-04 17:40 → ER 09:23 → 4TH 13:46 | DX: I11.0 Hypertensive heart disease with heart failure (principal); I50.41 Acute combined systolic (congestive) and diastolic (congestive) heart failure; I48.91 Unspecified atrial fibrillation; J96.00 Acute respiratory failure, unspecified whether with hypoxia or hypercapnia; C91.10 Chronic lymphocytic leukemia of B-cell type not having achieved remission; I25.10 Atherosclerotic heart disease of native coronary artery without angina pectoris; I25.2 Old myocardial infarction; E78.00 Pure hypercholesterolemia, unspecified; R01.1 Cardiac murmur, unspecified; I73.9 Peripheral vascular disease, unspecified; D53.9 Nutritional anemia, unspecified; F41.9 Anxiety disorder, unspecified; D72.829 Elevated white blood cell count, unspecified; I27.20 Pulmonary hypertension, unspecified; E66.9 Obesity, unspecified; M54.9 Dorsalgia, unspecified; M19.91 Primary osteoarthritis, unspecified site; J30.2 Other seasonal allergic rhinitis; Z68.37 Body mass index [BMI] 37.0-37.9, adult; Z95.1 Presence of aortocoronary bypass graft; Z95.5 Presence of coronary angioplasty implant and graft; Z79.02 Long term (current) use of antithrombotics/antiplatelets ==

== ENCOUNTER 2019-08-25 12:46 | Outpatient (RCR) | payer MEDICARE ==
[~2019-08-25 12:46] MED LIST changes: +ACET-2267 PO; +APIX5TAB PO; +CHOL500049 PO; +CLOP75TA28 PO; +DIGO125T18 PO; +DILT60TA PO; +DOCU-143 PO; +FERR-84 PO; +IPRA3AMP31 INH; +ISOS30TA3 PO; +LATA2.5D5 OU; +MELA3TAB PO; +MULT1TAB69 PO; +PANT40TA3 PO; +POTA10TA10 PO
[2019-10-02] MEDS ORDERED: DILT60TA PO (09:07)
[2019-10-02] MEDS ORDERED: HYDR30CR69 RC (09:07)
[2019-10-02] MEDS ORDERED: ALPR0.25 PO (09:07)
[2019-10-02] MEDS ORDERED: LORA10TA7 PO (09:07)
[2019-10-02] MEDS ORDERED: TRAM50TA2 PO (09:07)
[2019-10-02] MEDS ORDERED: APIX5TAB PO (09:11)
[2019-10-02] MEDS ORDERED: MELA3TAB PO (09:11)
[2019-10-02] MEDS ORDERED: HYDR-3812 PO (09:11)
[2019-10-02] MEDS ORDERED: DILT240C86 PO (09:39)
[2019-10-02] MEDS ORDERED: WARF5TAB PO (09:39)
== END 2019-11-23 | disposition home or self-care (01) ==
LOC: ONC 12:46
PROVIDERS: ATTEND Internal Medicine Hematology & Oncology
DX: C91.10 Chronic lymphocytic leukemia of B-cell type not having achieved remission (principal)
CPT/HCPCS: 99213

== ENCOUNTER 2019-10-02 07:50 | Day surgery (SDC) | payer MEDICARE ==
[~2019-10-02] VITALS: Ht 165 cm; Wt 98.8 kg
[2019-10-02] VITALS (11 sets, daily range): BP systolic 91–124; BP diastolic 65–91
[2019-10-02] MEDS ORDERED: NS IV 1000 ML 1,000 ML ONE (07:56)
[2019-10-02] MEDS ORDERED: LIDOCAINE 2% VISCOUS 15 ML UDC ONE (07:56)
[2019-10-02] MEDS ORDERED: NS IV 1000 ML 1,000 ML IV SCH ×2 (08:00→09:32)
[2019-10-02] MEDS ORDERED: MIDAZOLAM 2 MG/2 ML (VERSED) VIAL ONE (08:20)
[2019-10-02] MEDS ORDERED: proPOfol 200 MG/20 ML (DIPRIVAN) VIAL IV ONE (08:20)
[2019-10-02 08:29] LABS: HEMOGLOBIN 10.4 G/DL (11.5-16.0); RED CELL DISTRIBUTION WIDTH 17.3 % (10.0-14.5); WHITE BLOOD COUNT 9.2 10^3/uL (4.3-11.0)
[2019-10-02 08:40] LABS: INR 1.2 (0.8-1.4); PROTHROMBIN TIME PATIENT 15.8 SEC (12.2-14.7)
[2019-10-02 08:46] LABS: ALANINE AMINOTRANSFERASE 10 U/L (0-55); ALBUMIN 4.1 GM/DL (3.2-4.5); ALKALINE PHOSPHATASE 91 U/L (40-136); BILIRUBIN,TOTAL 1.2 MG/DL (0.1-1.0); BUN/CREATININE RATIO 20; CALCIUM 9.4 MG/DL (8.5-10.1); CARBON DIOXIDE 32 MMOL/L (21-32); CHLORIDE 99 MMOL/L (98-107); CREATININE SERUM 0.83 MG/DL (0.60-1.30); GFR ESTIMATED > 60; GLUCOSE 115 MG/DL (70-105); POTASSIUM 4.1 MMOL/L (3.6-5.0); SODIUM 144 MMOL/L (135-145); TOTAL PROTEIN 5.9 GM/DL (6.4-8.2)
[2019-10-02 08:47] LABS: CHOLESTEROL 150 MG/DL (< 200); HDL CHOLESTEROL 37 MG/DL (40-60); TRIGLYCERIDES 100 MG/DL (<150); VLDL CHOLESTEROL 20 MG/DL (5-40)
--- NOTE | 2019-10-02 09:02 | Diagnostic Imaging Report ---
INDICATION: Atrial fibrillation COMPARISON: 08/06/2019 TECHNIQUE: Single frontal radiograph of the chest dated 10/02/2019 FINDINGS: Postsurgical changes of a median sternotomy. The cardiac silhouette is enlarged, though stable. Central pulmonary vascular congestion is present. Mild diffuse prominence of the pulmonary interstitium with small left and trace right bibasilar pleural-parenchymal opacities. Density is noted overlying the mid upper abdomen, of uncertain etiology. No acute osseous abnormality. IMPRESSION: Constellation of findings is felt to relate to congestive heart failure with associated interstitial edema and small left and trace right pleural effusions. Linear radiopaque density overlying the midline upper abdomen likely is simply external to the patient and could relate to a monitor or pad of some type. Recommend clinical correlation and direct visualization. Dictated by: Dictated on workstation # [id number]
[2019-10-02] MEDS ORDERED: ALPR0.25 PO (09:07)
[2019-10-02] MEDS ORDERED: HYDR30CR69 RC (09:07)
[2019-10-02] MEDS ORDERED: TRAM50TA2 PO (09:07)
[2019-10-02] MEDS ORDERED: DILT60TA PO (09:07)
[2019-10-02] MEDS ORDERED: LORA10TA7 PO (09:07)
[2019-10-02] MEDS ORDERED: APIX5TAB PO (09:11)
[2019-10-02] MEDS ORDERED: MELA3TAB PO (09:11)
[2019-10-02] MEDS ORDERED: HYDR-3812 PO (09:11)
[2019-10-02] MEDS ORDERED: meTOprolol 5 MG/5 ML (LOPRESSOR) VIAL ONE (09:24)
[2019-10-02] MEDS ORDERED: DILTIAZEM 25 MG/5 ML INJ (CARDIZEM) VIAL ONE (09:25)
--- NOTE | 2019-10-02 09:28 | NUR ---
ENTERED THE MED FROM THE MAR PROVIDED BY [facility]. I ALSO CALLED THE FACILITY TO GET CLARIFICATION ON A COUPLE MEDS. THIS INCLUDES: FERROUS SULFATE: ON THE JAN IT IS LISTED TWICE, WHEN I SPOKE WITH THE FACILITY THEY INDICATED SHE ONLY TAKES ONCE DAILY AND THAT WAS AN ERROR. FUROSEMIDE: IT HAS 3 ENTRIES ON THE JAN; 1 FOR EACH DOSE DAILY (0800 &1200) AND 1 FOR THE EXTRA DOSES ON SATURDAY AND SATURDAY.
[2019-10-02] MEDS ORDERED: DILT240C86 PO (09:39)
[2019-10-02] MEDS ORDERED: WARF5TAB PO (09:39)
[2019-10-02] MEDS ORDERED: PATIENT MAY USE OWN MEDS, ALL PO SCH (09:45)
[2019-10-02] MEDS ORDERED: DILTIAZEM 25 MG/5 ML INJ (CARDIZEM) VIAL IVP ONE (09:45)
--- NOTE | 2019-10-02 10:10 | Anesthesia-General Post-Op ---
MAC Patient Condition Mental Status/LOC: Same as Preop Cardiovascular: Satisfactory Nausea/Vomiting: Absent Respiratory: Satisfactory Pain: Controlled Complications: Absent Post Op Complications Complications None Follow Up Care/Instructions Patient Instructions None needed. Anesthesiology Discharge Order Discharge Order Patient is doing well, no complaints, stable vital signs, no apparent adverse anesthesia problems. JONAH DAILEY DO Oct 02, 2019 10:10 POS
--- NOTE | 2019-10-02 10:27 | NUR ---
pt gag reflex intact, pt drinking sprite with out difficulty. pt lower lip bruised from cee procedure.
--- NOTE | 2019-10-02 11:30 | NUR ---
IV DC'D, CATHETER INTACT, DRGS APPLIED
--- NOTE | 2019-10-02 11:55 | NUR ---
PT WHEEL OUT IN WHEEL CHAIR TO TRANSPORT VAN. DISCHARGE PAPERS SIGNED AND COPY GIVEN TO PATIENT.
--- NOTE | 2019-10-05 09:31 | Clinic Account Progress/Dx ---
Clinic Account Progress/Dx DIAGNOSIS: Date Seen by Provider: Oct 02, 2019 Time Seen by Provider: 09:00 Chronic atrial fibrillation Aortic valve stenosis Mitral regurgitation Hypertension ELISABETH ARAYA MD Oct 05, 2019 09:31 POS
== END 2019-10-02 12:31 | disposition home or self-care (01) ==
LOC: CATH 07:50
PROVIDERS: ATTEND Internal Medicine Cardiovascular Disease
DX: I48.91 Unspecified atrial fibrillation (principal); I25.10 Atherosclerotic heart disease of native coronary artery without angina pectoris; I65.29 Occlusion and stenosis of unspecified carotid artery; E78.5 Hyperlipidemia, unspecified; M19.90 Unspecified osteoarthritis, unspecified site; D64.9 Anemia, unspecified; I11.9 Hypertensive heart disease without heart failure; K21.9 Gastro-esophageal reflux disease without esophagitis; M47.819 Spondylosis without myelopathy or radiculopathy, site unspecified; E66.9 Obesity, unspecified; R06.9 Unspecified abnormalities of breathing; I47.9 Paroxysmal tachycardia, unspecified; I47.1 Supraventricular tachycardia; G47.33 Obstructive sleep apnea (adult) (pediatric); Z88.8 Allergy status to other drugs, medicaments and biological substances; Z91.013 Allergy to seafood; Z95.1 Presence of aortocoronary bypass graft; Z85.6 Personal history of leukemia; Z79.01 Long term (current) use of anticoagulants; Z79.899 Other long term (current) drug therapy; Z90.49 Acquired absence of other specified parts of digestive tract; Z68.37 Body mass index [BMI] 37.0-37.9, adult; Z82.49 Family history of ischemic heart disease and other diseases of the circulatory system
CPT/HCPCS: 36415; 71045; 80053; 80061; 85027; 85610; 85730; 87081; 93005; 93312; 93320; 93325